=== PATIENT | female | born 1940 | race Caucasian/White ===

== ENCOUNTER 2016-09-11 15:21 | Inpatient (IN) | payer MEDICARE, MEDICAID ==
[~2016-09-11] VITALS: Ht 167.6 cm; Wt 60.8 kg
[2016-09-11] MEDS ORDERED: AMIODARONE HCL200 MG ORAL (15:30)
[2016-09-11] MEDS ORDERED: CREON DR 24,001 EACH PO (15:30)
[2016-09-11] MEDS ORDERED: LYRICA25 MG ORAL (15:30)
[2016-09-11] MEDS ORDERED: ASPIR 8181 MG ORAL (15:30)
[2016-09-11] MEDS ORDERED: HYDRALAZINE HCL50 MG ORAL (15:30)
[2016-09-11] MEDS ORDERED: KLONOPIN1 MG ORAL (15:30)
[2016-09-11] MEDS ORDERED: NEXIUM40 MG ORAL (15:30)
[2016-09-11] MEDS ORDERED: CRESTOR10 M2 ORAL (15:30)
[2016-09-11] MEDS ORDERED: SENSIPAR30 MG ORAL (15:30)
[2016-09-11] MEDS ORDERED: STARLIX60 MG ORAL (15:30)
[2016-09-11] MEDS ORDERED: VITAMIN D1000 UNI1 ORAL (15:30)
[2016-09-11] MEDS ORDERED: FERROUS SULFAT325 MG ORAL (15:30)
[2016-09-11 16:33] VITALS: BP 112/67
[2016-09-11 16:45] LABS: MEAN CORPUSCULAR HEMOGLOBIN 31.7 PG (27.0-31.0); MEAN CORPUSCULAR HGB CONC 30.6 G/DL (32.0-36.0); MEAN CORPUSCULAR VOLUME 104 FL (80-99); MEAN PLATELET VOLUME 8.4 FL (6.5-10.1); PLATELET COUNT 162 K/UL (150-450); RED BLOOD COUNT 4.27 M/UL (4.20-5.40); RED CELL DISTRIBUTION WIDTH 15.2 % (11.6-14.8); WHITE BLOOD COUNT 12.4 K/UL (4.8-10.8)
--- NOTE | 2016-09-11 16:49 | Diagnostic Imaging Report ---
Indication: Altered mental status Technique: Contiguous 5 mm thick transaxial imaging of the head obtained in a Siemens Sensation [address] scanner. Soft tissue and bone windows generated. Total Dose length Product (DLP): [address] Dose Index Volume (CTDIvol): 70.38 mGy Comparison: none Findings: There is mild prominence of the ventricles, basal cisterns, and cerebral sulci consistent with atrophy. Mild, nonspecific, white matter hypoattenuation is noted throughout the brain consistent with chronic small vessel disease. There is no midline shift, edema, acute hemorrhage, mass effect, or abnormal extra-axial fluid collections. Bones and extra osseous soft tissues are unremarkable. Old right medial orbital wall fracture. Impression: No acute intracranial bleed, mass effect or edema. Mild atrophy of the brain. Nonspecific white matter hypoattenuation probably due to chronic small vessel disease. The CT scanner at [facility] is accredited by the [employer] and the scans are performed using protocols designed to limit radiation exposure to as low as reasonably achievable to attain images of sufficient resolution adequate for diagnostic evaluation.
--- NOTE | 2016-09-11 16:51 | Emergency Room Report ---
History of Present Illness General Chief Complaint: Altered Level of Consciousness Source: Patient, EMS Present Illness HPI 76 YO F LONG from home for AMS. Neighbors hadnt seen patient in 2 days, called 911. Patient found on floor covered in her own feces. [place] speaking , not providing additional HPI right now. Patient calm, collected. Allergies: Coded Allergies: UNABLE TO ASSESS (Unverified , 09/11/16) Patient History Past Medical History: unable to obtain Past Surgical History: unable to obtain Pertinent Family History: unable to obtain Social History: Denies: alcohol use, drug use, smoking Now: No Immunizations: UTD Reviewed Nursing Documentation: PMH: Agreed, PSxH: Agreed Nursing Documentation-PMH Hx Cardiac Problems: Yes Hx Hypertension: Yes Hx Pacemaker: Yes Hx Diabetes: Yes Review of Systems All Other Systems: limited - AMS Physical Exam Vital Signs Date Time Temp Pulse Resp B/P Pulse Ox O2 Delivery O2 Flow Rate FiO2 09/11/16 15:19 62 12 123/62 99 Room Air Sp02 EP Interpretation: reviewed, normal General Appearance: normal inspection, well appearing, no apparent distress, alert, GCS 15, non-toxic Head: normocephalic, atraumatic Eyes: bilateral eye EOMI, bilateral eye PERRL ENT: normal ENT inspection, hearing 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, normal voice Neck: normal inspection, full range of motion, supple, no bony tend Respiratory: normal inspection, chest non-tender, lungs clear, normal breath sounds, no rhonchi, no respiratory distress, no retraction, no accessory muscle use, no wheezing Cardiovascular #1: regular rate, rhythm, no edema Gastrointestinal: normal inspection, normal bowel sounds, non tender, soft, no guarding, no hernia Genitourinary: no CVA tenderness Musculoskeletal: normal inspection, back normal, normal range of motion, Lesley' s Sign negative Neurologic: normal inspection, alert, oriented x3, responsive, service tester III-XII nml as tested, motor strength/tone normal, speech normal Psychiatric: normal inspection, judgement/insight normal, mood/affect normal Skin: normal inspection, normal color, no rash Medical Decision Making Medicare Attestation I Francois Warren MD hereby attest that the medical record entry for date of service, 06/17/16 accurately reflects signatures/notations that I made in my capacity as MD when I treated/diagnosed the above listed Medicare beneficiary. I attest that this information is true, accurate and complete to the best of my knowledge. I understand that any falsification, omission, or concealment of material fact may subject me to administrative, civil, or criminal liability. This patient warrants hospital admission for extreme of age and has a condition that cannot be treated as outpatient. Diagnostic Impression: Primary Impression: Altered level of consciousness Additional Impressions: Dehydration JENNIFER (acute kidney injury) Hyperkalemia Rhabdomyolysis Qualified Codes: T79.6XXA - Traumatic ischemia of muscle, initial encounter ER Course Labs: HyperK. Elevated serumCr. Elevated CK. Low bicarb. UA negative for UTI. CXR No PNA CT head negative for acute trauma A: Altered mental status - ?hemolyzed CMP. Redraw in progress. HyperK with ECG showing AV-dual paced with PCVs. Will tx as real with IV Caclium albuterol, kayexelate - Rhabdo with JENNIFER - Very elevated serumCr - ?history of CKD. Possible related to down time for 2 days, dehydration. 2L NS given - Low bicarb but vitals stable. Patient awake and oriented. - Endorsed to Dr Ervin for tele admission at 636pm EKG Diagnostic Results Rate: other - AV paced with ventricular paced complexes Rhythm Strip Diag. Results EP Interpretation: yes Rate: 62 Rhythm: NSR, no ectopy, other Chest X-Ray Diagnostic Results EP Interpretation: Yes Findings: no consolidation, no effusion, no pneumothorax, no acute cardiopulmonary disease, other - pacemaker on left side Number of Views: 1 Last Vital Signs Date Time Temp Pulse Resp B/P Pulse Ox O2 Delivery O2 Flow Rate FiO2 09/11/16 16:33 62 13 112/67 98 Room Air Disposition: ADMITTED INPATIENT Condition: Serious Referrals: NOT CHOSEN ZOHAIB/,REFERRING (PCP) FRANCOIS WARREN M.D. Sep 11, 2016 16:51
[2016-09-11 16:53] LABS: LYMPHOCYTES % (AUTO) 4.2 % (20.0-45.0); MONOCYTES % (AUTO) 2.8 % (1.0-10.0); NEUTROPHILS % (AUTO) 92.6 % (45.0-75.0)
[2016-09-11 16:54] LABS: BASOPHILS % (AUTO) 0.3 % (0.0-2.0)
[2016-09-11 17:04] LABS: ALANINE AMINOTRANSFERASE 17 U/L (3-33); ALBUMIN/GLOBULIN RATIO 1.3 (1.0-2.7); ANION GAP 33 (5-15); ASPARTATE AMINO TRANSFERASE 21 U/L (5-40); CALCIUM 7.9 mg/dL (8.6-10.2); CHLORIDE 107 mEQ/L (98-107); CREATININE 9.7 mg/dL (0.5-0.9); HEMOLYSIS 7; SODIUM 146 mEQ/L (135-145); TOTAL PROTEIN 6.5 g/dL (6.6-8.7); TROPONIN I < 0.30 ng/mL (<=0.30)
[2016-09-11 17:12] LABS: POTASSIUM 7.6 mEQ/L (3.4-4.9)
[2016-09-11 17:42] LABS: CARBON DIOXIDE < 6 mEQ/L (20-30)
[2016-09-11] MEDS ORDERED: Sodium Polystyrene Sulfonate 15gm Powder ORAL ONE ×3 (17:45→23:00)
[2016-09-11] MEDS ORDERED: Calcium Gluconate 1gm/10ml vial IVP ONE ×2 (17:45→22:15)
[2016-09-11] MEDS ORDERED: Albuterol ud Inhalation HHN ONE (17:45)
[2016-09-11 18:23] LABS: APPEARANCE,URINE CLEAR; KETONES,URINE 1+ (NEGATIVE); LEUKOCYTE ESTERASE ,URINE 1+ (NEGATIVE); NITRITE,URINE NEGATIVE (NEGATIVE); PH,URINE 5 (4.5-8.0); PROTEIN,URINE 4+ (NEGATIVE); UROBILINOGEN,URINE NORMAL MG/DL (0.0-1.0)
[2016-09-11 18:29] LABS: RBC,URINE 0-2 /HPF (0 - 2)
[2016-09-11 18:30] LABS: BACTERIA,URINE MODERATE /HPF; SQUAMOUS EPITHELIAL CELL,UR OCCASIONAL /LPF (NONE/OCC); WBC,URINE 0-2 /HPF (0 - 2)
[2016-09-11 18:31] LABS: AMORPHOUS SEDIMENT,UR MODERATE /LPF
[2016-09-11 19:12] LABS: ALANINE AMINOTRANSFERASE 16 U/L (3-33); ALBUMIN/GLOBULIN RATIO 1.5 (1.0-2.7); ASPARTATE AMINO TRANSFERASE 19 U/L (5-40); CALCIUM 7.6 mg/dL (8.6-10.2); CHLORIDE 107 mEQ/L (98-107); CREATININE 9.3 mg/dL (0.5-0.9); HEMOLYSIS 6; SODIUM 145 mEQ/L (135-145); TOTAL PROTEIN 5.9 g/dL (6.6-8.7)
[2016-09-11 19:13] VITALS: BP 121/73
[2016-09-11 19:18] LABS: ANION GAP 32 (5-15)
[2016-09-11 19:55] LABS: POTASSIUM 7.9 mEQ/L (3.4-4.9)
[2016-09-11 19:56] LABS: CARBON DIOXIDE < 6 mEQ/L (20-30)
--- NOTE | 2016-09-11 19:57 | Consultation ---
Consult Note Consult Note HPI 76 YO F BIBEMS from home for AMS. Neighbors hadnt seen patient in 2 days, called 911. Patient found on floor covered in her own feces. Citizen Of [place] speaking , not providing additional HPI right now. Patient calm, collected. Hx Cardiac Problems: Yes Hx Hypertension: Yes Hx Pacemaker: Yes Hx Diabetes: Yes Assessment/Plan status: Altered level of consciousness Dehydration JENNIFER (acute kidney injury) Hyperkalemia Rhabdomyolysis Plan: Kayexelate- ABG IV with bicard IV protonix NPO except meds Monitor renal parameters RICKI SALGADO Sep 11, 2016 19:57
[2016-09-11 20:30] VITALS: BP 106/61
[2016-09-11] MEDS ORDERED: Acetaminophen 650 MG SUPP RECTAL PRN (20:30)
[2016-09-11] MEDS ORDERED: DuoNeb 0.5-3(2.5)mg/3ml neb HHN PRN (20:30)
[2016-09-11] MEDS ORDERED: Miralax 17gm pkt ORAL PRN (20:30)
--- NOTE | 2016-09-11 20:33 | History and Physical ---
History of Present Illness General Date patient seen: Sep 11, 2016 Time patient seen: 18:00 Reason for Hospitalization: Altered Level of Consciousness Present Illness HPI 76y/o female with unknown pmh who was brought from home with AMS. Neighbors had not seen patient in 2 days, so they called 911. Patient was found on floor covered in her own feces. Unable to obtain history at this time given AMS. Pt awakens to voice and pain, but does not answer questions or follow commands. In ED, VSS. Labs notable for JENNIFER with SCr 9, hyperkalemia to K, severe metabolic acidosis w/ bicarb<6. Pt was given 1L NS bolus x 2, calcium gluconate , kayexylate, albuterol neb. Discussed w/ nephrology who recommended urgent dialysis with placement of temporary dialysis line. D/w ER doctor who stated he was unable to place it. Pt admitted to ICU. Allergies: Coded Allergies: NO KNOWN ALLERGIES (Verified Allergy, Unknown, 09/12/16) Medication History Scheduled Amiodarone Hcl* (Cordarone*), 200 MG ORAL DAILY, (Reported) Aspirin* (Aspir 81*), 81 MG ORAL DAILY, (Reported) Cholecalciferol (Vitamin D3)* (Vitamin D*), 5,000 UNITS ORAL DAILY, (Reported) Cinacalcet* (Sensipar*), 30 MG ORAL DAILY, (Reported) Clonazepam* (Klonopin*), 1 MG ORAL BID, (Reported) Esomeprazole Magnesium (Nexium), 40 MG ORAL DAILY, (Reported) Ferrous Sulfate* (Ferrous Sulfate*), 325 MG ORAL DAILY, (Reported) Hydralazine Hcl* (Hydralazine Hcl*), 50 MG ORAL TID, (Reported) Lipase/Protease/Amylase (Creon Dr 24,000 Units Capsule), 1 EACH PO TID, ( Reported) Nateglinide* (Starlix*), 60 MG ORAL THREE TIMES A DAY, (Reported) Pregabalin (Lyrica), 25 MG ORAL THREE TIMES A DAY, (Reported) Rosuvastatin Calcium* (Crestor*), 10 MG ORAL HS, (Reported) Medications Narrative Unknown Patient History History Provided By: Medical Record Healthcare decision maker Resuscitation status Advanced Directive on File Family History Family History: Unknown family medical history Review of Systems ROS Narrative Unable to assess at this time Physical Exam Physical Exam Narrative General: somnolent, arouses to voice and pain Head: normocephalic, without obvious abnormality, atraumatic Eyes: conjunctivae/corneas clear. PERRL, EOM's intact Throat: lips, mucosa, and tongue normal. MMM Neck: supple, symmetrical, trachea midline, and no JVD Lungs: clear to auscultation bilaterally Heart: regular rate and rhythm, S1, S2 normal, no murmur, click, rub or gallop Abdomen: soft, non-tender, non-distended, bowel sounds normal; no masses or organomegaly Extremities: extremities normal, atraumatic, no cyanosis or edema Pulses: 2+ and symmetric Skin: skin color, texture, turgor normal; no rashes or lesions Neurologic: unable to assess--does not follow commands or respond appropriately Last 24 Hour Vital Signs Date Time Temp Pulse Resp B/P Pulse Ox O2 Delivery O2 Flow Rate FiO2 09/11/16 20:09 98.9 60 13 121/73 99 Room Air 09/11/16 19:13 98.9 60 13 121/73 99 Room Air 09/11/16 18:57 61 15 99 Room Air 09/11/16 18:41 62 16 Room Air 09/11/16 18:41 62 16 98 Room Air 09/11/16 16:33 62 13 112/67 98 Room Air 09/11/16 15:19 62 12 123/62 99 Room Air Laboratory Tests Test 09/11/16 16:25 09/11/16 18:00 09/11/16 18:30 White Blood Count 12.4 K/UL (4.8-10.8) H Red Blood Count 4.27 M/UL (4.20-5.40) Hemoglobin 13.6 G/DL (12.0-16.0) Hematocrit 44.4 % (37.0-47.0) Mean Corpuscular Volume 104 FL (80-99) H Mean Corpuscular Hemoglobin 31.7 PG (27.0-31.0) H Mean Corpuscular Hemoglobin Concent 30.6 G/DL (32.0-36.0) L Red Cell Distribution Width 15.2 % (11.6-14.8) H Platelet Count 162 K/UL (150-450) Mean Platelet Volume 8.4 FL (6.5-10.1) Neutrophils (%) (Auto) 92.6 % (45.0-75.0) H Lymphocytes (%) (Auto) 4.2 % (20.0-45.0) L Monocytes (%) (Auto) 2.8 % (1.0-10.0) Eosinophils (%) (Auto) 0.0 % (0.0-3.0) Basophils (%) (Auto) 0.3 % (0.0-2.0) Sodium Level 146 mEQ/L (135-145) H 145 mEQ/L (135-145) Potassium Level 7.6 mEQ/L (3.4-4.9) *H 7.9 mEQ/L (3.4-4.9) *H Chloride Level 107 mEQ/L (98-107) 107 mEQ/L (98-107) Carbon Dioxide Level < 6 mEQ/L (20-30) *L < 6 mEQ/L (20-30) *L Anion Gap 33 (5-15) H 32 (5-15) H Blood Urea Nitrogen 141 mg/dL (7-23) H 142 mg/dL (7-23) H Creatinine 9.7 mg/dL (0.5-0.9) H 9.3 mg/dL (0.5-0.9) H Estimat Glomerular Filtration Rate mL/min (>60) mL/min (>60) Glucose Level 188 mg/dL (74-106) H 199 mg/dL (74-106) H Calcium Level 7.9 mg/dL (8.6-10.2) L 7.6 mg/dL (8.6-10.2) L Total Bilirubin 0.4 mg/dL (0.0-1.2) 0.4 mg/dL (0.0-1.2) Aspartate Amino Transf (AST/SGOT) 21 U/L (5-40) 19 U/L (5-40) Alanine Aminotransferase (ALT/SGPT) 17 U/L (3-33) 16 U/L (3-33) Alkaline Phosphatase 130 U/L (35-104) H 119 U/L (35-104) H Total Creatine Kinase 281 U/L (26-140) H Creatine Kinase MB 21.0 ng/mL (< 3.8) H Creatine Kinase MB Relative Index 7.4 Troponin I < 0.30 ng/mL (<=0.30) Total Protein 6.5 g/dL (6.6-8.7) L 5.9 g/dL (6.6-8.7) L Albumin 3.7 g/dL (3.5-5.2) 3.6 g/dL (3.5-5.2) Globulin 2.8 g/dL 2.3 g/dL Albumin/Globulin Ratio 1.3 (1.0-2.7) 1.5 (1.0-2.7) Urine Color Pale yellow Urine Appearance Clear Urine pH 5 (4.5-8.0) Urine Specific [place] 1.020 (1.005-1.035) Urine Protein 4+ (NEGATIVE) H Urine Glucose (UA) Negative (NEGATIVE) Urine Ketones 1+ (NEGATIVE) H Urine Occult Blood 2+ (NEGATIVE) H Urine Nitrite Negative (NEGATIVE) Urine Bilirubin Negative (NEGATIVE) Urine Urobilinogen Normal MG/DL (0.0-1.0) Urine Leukocyte Esterase 1+ (NEGATIVE) H Urine RBC 0-2 /HPF (0 - 2) Urine WBC 0-2 /HPF (0 - 2) Urine Squamous Epithelial Cells Occasional /LPF Urine Amorphous Sediment Moderate /LPF (NONE) H Urine Bacteria Moderate /HPF (NONE) H Urine Opiates Screen Positive (NEGATIVE) H Urine Barbiturates Screen Positive (NEGATIVE) H Phencyclidine (PCP) Screen Negative (NEGATIVE) Urine Amphetamines Screen Negative (NEGATIVE) Urine Benzodiazepines Screen Negative (NEGATIVE) Urine Cocaine Screen Negative (NEGATIVE) Urine Marijuana (THC) Screen Negative (NEGATIVE) Height (Feet): 5 Height (Inches): 6.00 Weight (Pounds): 140 Medications Current Medications Medications (Trade) Dose Ordered Sig/Serafin Route PRN Reason Start Time Stop Time Status Last Admin Dose Admin Acetaminophen (Tylenol) 650 mg Q4H PRN ORAL Fever 09/11/16 20:30 10/11/16 20:29 UNV Acetaminophen (Tylenol) 650 mg Q4H PRN ORAL Mild Pain (Pain Scale 1-3) 09/11/16 20:30 10/11/16 20:29 UNV Acetaminophen (Tylenol) 650 mg Q4H PRN RECTAL Mild Pain (Pain Scale 1-3) 09/11/16 20:30 10/11/16 20:29 UNV Albuterol/ Ipratropium (DuoNeb 0.5-3(2.5)mg/3ml) 3 ml Q4H PRN HHN Shortness of Breath 09/11/16 20:30 09/16/16 20:29 UNV Bisacodyl (Dulcolax) 10 mg DAILYPRN PRN RECTAL Constipation 09/11/16 20:30 10/11/16 20:29 UNV Dextrose (Dextrose 50%) STAT PRN IV Hypoglycemia 09/11/16 20:30 10/11/16 20:29 UNV Heparin Sodium (Porcine) (Heparin 5000 units/ml) 5,000 units EVERY 12 HOURS SUBQ 09/11/16 21:00 10/11/16 20:59 UNV Levofloxacin (Levaquin 750mg/ D5W) 150 ml @ 100 mls/hr NOW ONCE IVPB 09/11/16 21:00 09/11/16 22:29 Ondansetron HCl (Zofran) 4 mg Q6H PRN IVP Nausea & Vomiting 09/11/16 20:15 10/11/16 20:14 Ondansetron HCl (Zofran) 4 mg Q6H PRN IVP Nausea & Vomiting 09/11/16 20:30 10/11/16 20:29 UNV Pantoprazole 40 mg 40 mg EVERY 12 HOURS IVP 09/11/16 21:00 10/11/16 20:59 Polyethylene Glycol (Miralax) 17 gm DAILYPRN PRN ORAL Constipation 09/11/16 20:30 10/11/16 20:29 UNV Sodium Bicarbonate/ Dextrose/Sodium Chloride (Sodium Bicarbonate/D5 0.45% NS) 1,050 ml @ 100 mls/hr [id number] IV 09/11/16 21:00 10/11/16 20:59 Sodium Polystyrene Sulfonate (Kayexalate) 30 gm Q6HR ORAL 09/12/16 00:00 10/12/16 00:00 Assessment/Plan Problem List: (1) Toxic metabolic encephalopathy ICD Codes: G92 - Toxic encephalopathy SNOMED: 199198879 (2) JENNIFER (acute kidney injury) ICD Codes: N17.9 - Acute kidney failure, unspecified SNOMED: 00239958 (3) Hyperkalemia ICD Codes: E87.5 - Hyperkalemia SNOMED: 74160122 (4) High anion gap metabolic acidosis ICD Codes: E87.2 - Acidosis SNOMED: 01129966 (5) Pacemaker ICD Codes: Z95.0 - Presence of cardiac pacemaker SNOMED: 600185553, 484948549 Status: not improved Assessment/Plan Utox positive for opioids and barbiturates which may be likely culprits of encephalopathy. Unclear if pt had overdosed and if it was intentional or note. JENNIFER likely 2/2 severe dehydration (given pt found down) vs 2/2 drug overdose vs rhabdomyolysis (though CK not that elevated) Admit to ICU Nephrology consulted--plan for HD urgently once dialysis line placed D/w Dr. Marques--general surgeon to place HD in AM Cont IVFs w/ biarb Trend BMP, VBG Bicarb IVP PRN kayexylate q6h for now until dialysis initiated SW consult to locate family and gather more history Give high anion gap metabolic acidosis, check salicylate level Check osmolal gap DVT Prophylaxis: SCD, HSQ Code Status: Full Hospital Classification Declaration: Based on this initial evaluation, and depending on the patient's clinical course, I anticipate that this patient will require hospitalization for 3-4 days for JENNIFER, severe metabolic acidosis, and close respiratory/hemodynamic monitoring. Disposition: Once the patient is stable to leave the hospital, I anticipate the patient will likely be discharged to the following environment: home with HH vs SNF I spent 75 minutes on this patient's case, and 40 minutes were dedicated to counseling and/or care coordination. Discussed with patient/family, nursing staff, SW/CM, ER physician, nephrology regarding clinical status, treatment course, and disposition planning. Time of note may not reflect time of encounter. Rubia Ma M.D. Sep 11, 2016 20:33
[2016-09-11 21:00] VITALS: BP 118/42
[2016-09-11] MEDS: Heparin 5000 units/ml inj SUBQ SCH (21:00)
[2016-09-11] MEDS: Sodium Bicarbonate 50 ML in D5 1/2NS 1,000 ML IV SCH (21:54)
[2016-09-11 22:00] VITALS: BP 114/36
[2016-09-11] MEDS: Pantoprazole Inj IVP SCH (22:46)
[2016-09-11 23:00] VITALS: BP 106/46
[2016-09-11 23:15] LABS: CALCIUM 7.6 mg/dL (8.6-10.2); CHLORIDE 108 mEQ/L (98-107); CREATININE 9.3 mg/dL (0.5-0.9); HEMOLYSIS 6; SODIUM 146 mEQ/L (135-145)
[2016-09-11 23:21] LABS: ANION GAP 32 (5-15)
[2016-09-11 23:33] LABS: CARBON DIOXIDE < 6 mEQ/L (20-30); POTASSIUM 8.1 mEQ/L (3.4-4.9)
[2016-09-12] VITALS (23 sets, daily range): BP systolic 98–138; BP diastolic 34–90
[2016-09-12] MEDS: Sodium Polystyrene Sulfonate 15gm Powder ORAL SCH ×2 (00:23→06:36)
[2016-09-12 00:41] LABS: ANION GAP 31 (5-15); CALCIUM 7.2 mg/dL (8.6-10.2); CHLORIDE 106 mEQ/L (98-107); CREATININE 8.8 mg/dL (0.5-0.9); HEMOLYSIS 24; SODIUM 143 mEQ/L (135-145)
[2016-09-12 00:44] LABS: CARBON DIOXIDE < 6 mEQ/L (20-30); POTASSIUM 7.1 mEQ/L (3.4-4.9)
[2016-09-12 05:45] LABS: ABG ALLEN TEST POSITIVE; ABG BASE EXCESS -26.6; ABG PCO2 16.9 mmHg (35.0-45.0)
[2016-09-12] MEDS ORDERED: Lidocaine 1% MPF 10mg/ml 5ml ONE (05:52)
[2016-09-12] MEDS ORDERED: LORazepam Inj 2mg/ml 1ml ONE (06:00)
[2016-09-12 06:18] LABS: MEAN CORPUSCULAR HEMOGLOBIN 30.9 PG (27.0-31.0); MEAN CORPUSCULAR HGB CONC 29.9 G/DL (32.0-36.0); MEAN CORPUSCULAR VOLUME 103 FL (80-99); MEAN PLATELET VOLUME 9.1 FL (6.5-10.1); PLATELET COUNT 159 K/UL (150-450); RED BLOOD COUNT 3.59 M/UL (4.20-5.40); RED CELL DISTRIBUTION WIDTH 15.6 % (11.6-14.8); WHITE BLOOD COUNT 9.3 K/UL (4.8-10.8)
[2016-09-12 06:20] LABS: HEMOGLOBIN A1C 4.8 % (< 6.0)
[2016-09-12 06:57] LABS: TROPONIN I 1.87 ng/mL (<=0.30)
[2016-09-12] MEDS ORDERED: Sodium Bicarbonate 8.4% 50ml Carp ONE (07:04)
[2016-09-12] MEDS ORDERED: Sodium Bicarbonate 8.4% 50ml Carp IV ONE (07:15)
[2016-09-12] MEDS: Sodium Bicarbonate 50 ML in D5 1/2NS 1,000 ML IV SCH (07:30)
[2016-09-12 07:41] LABS: ALANINE AMINOTRANSFERASE 17 U/L (3-33); ALBUMIN/GLOBULIN RATIO 1.4 (1.0-2.7); ANION GAP 32 (5-15); ASPARTATE AMINO TRANSFERASE 37 U/L (5-40); CHLORIDE 106 mEQ/L (98-107); CHOLESTEROL 99 mg/dL (< 200); CHOLESTEROL/HDL RATIO 3.8 (3.3-4.4); CREATININE 9.2 mg/dL (0.5-0.9); HEMOLYSIS 18; LDL CHOLESTEROL (CALC.) 44 mg/dL (60-99); MAGNESIUM 1.9 mg/dL (1.7-2.5); PHOSPHORUS 14.2 mg/dL (2.5-4.8); SODIUM 144 mEQ/L (135-145); TOTAL PROTEIN 4.9 g/dL (6.6-8.7); URIC ACID 8.1 mg/dL (3.0-7.5)
[2016-09-12 07:45] LABS: POTASSIUM 7.5 mEQ/L (3.4-4.9)
[2016-09-12 07:46] LABS: CARBON DIOXIDE < 6 mEQ/L (20-30)
--- NOTE | 2016-09-12 07:48 | Operative Note - Dictated ---
DATE OF OPERATION: 09/12/2016 PREOPERATIVE DIAGNOSES: 1. End-stage renal disease. 2. Need for hemodialysis. 3. History of diabetes mellitus. 4. Dehydration. 5. Obtundation, most likely secondary to the end-stage renal disease. 6. Hypercalcemia. POSTOPERATIVE DIAGNOSES: 1. End-stage renal disease. 2. Need for hemodialysis. 3. History of diabetes mellitus. 4. Dehydration. 5. Obtundation, most likely secondary to the end-stage renal disease. 6. Hypercalcemia. SURGEON: Elie Tran M.D. HOME COORDINATOR: None. ANESTHESIA: A 1% local Xylocaine by surgeon 5 mL. NAME OF OPERATION: Placement of right subclavian 12-Ugandan Mahurkar dialysis catheter. FINDINGS AND INDICATIONS: The patient is a 76-year-old, female, brought in by paramedics, had not seen the patient for the last two days and they called 911. The patient was lying on the floor covered in her own feces. She is [place]-speaking, obtunded and unable to give any history. On admission, it was noted that her laboratories revealed sodium of 146, potassium of 8.1, initially which came down to 7.1, after some Kayexalate, a BUN of 147, creatinine 9.3, which came down to 141 and 8.8 on the second blood draw after Kayexalate. I was asked to see her for placement of a dialysis catheter, which was done in the intensive care unit under local anesthesia with sterile technique. DESCRIPTION OF PROCEDURE: With the patient lying in a Trendelenburg position on the ICU bed, under 1% local Xylocaine anesthesia, with IV sedation ready if needed, with the patient restrained on the arms, and after complete time-out the right subclavian vein was cannulated, Seldinger technique was then used to dilate it and a 12.5-Ugandan double-lumen dialysis catheter with an access port for IV was inserted and she has poor venous access. It was placed to 18 cm and secured to the skin with 2-0 silk material x3 with. Good bidirectional flow was obtained without problem and the catheter was then covered with a sterile dressing. A chest x-ray was ordered, which will be gotten . The patient tolerated the procedure well. ESTIMATED BLOOD LOSS: Less than 10 mL. COUNTS: Sponge and needle counts were correct. She remained in critical condition in the intensive care unit. Elie Tran M.D. DR: Mirella JOB#: [id number] CC:
[2016-09-12 08:51] LABS: ANISOCYTOSIS 1+; BAND NEUTROPHILS % (MANUAL) 1 % (0-8); BASOPHILS % (MANUAL) 0 % (0-2); EOSINOPHILS % (MANUAL) 0 % (0-3); HYPOCHROMASIA 1+; LYMPHOCYTES % (MANUAL) 9 % (20-45); NEUTROPHILS % (MANUAL) 85 % (45-75); PLATELET ESTIMATE ADEQUATE; PLATELET MORPHOLOGY NORMAL; TOTAL CELLS COUNTED 100
[2016-09-12] MEDS: Heparin 5000 units/ml inj SUBQ SCH ×2 (08:51→21:00)
[2016-09-12] MEDS: Pantoprazole Inj IVP SCH ×2 (09:01→21:04)
--- NOTE | 2016-09-12 09:29 | Consultation ---
DATE OF CONSULTATION: 09/12/2016 SURGICAL CONSULTATION: CONSULTING PHYSICIAN: Elie Tran M.D. REFERRING PHYSICIANS: 1. Joe Peres M.D. 2. Jacquelin Marques M.D. PERTINENT HISTORY: The patient is a 76-year-old, female, originally from [place], who came into the emergency room, an extremis, obtunded, after neighbors had not seen her for two days. They called 911. She was found on the floor and covered a . It was cleaned and brought to the emergency room at which point it was found that she was insignificant dehydration, acute renal failure, hyperkalemia up to a level of 52, calcium of 8.1, a BUN of 147, and creatinine 9.3. I have asked to see her for urgent placement of a dialysis catheter, which will be done in the intensive care unit immediately. PAST MEDICAL HISTORY: Unobtainable from the patient only from chart and . She may have a history of diabetes. She has altered level of consciousness, acute renal failure, and possible rhabdomyolysis. Past history not obtainable. PHYSICAL EXAMINATION: VITAL SIGNS: Blood pressure is now 103/86, temperature is 98.0 degrees, pulse 66, on pacemaker rhythm, and respirations are 20. GENERAL: The patient is a well developed, elderly female, obtunded in the intensive care unit does not respond to verbal stimulus, but some to pain stimulus. HEENT EXAM: Pupils are equal and reactive to light and accommodation. Mouth and throat are clear. NECK: Supple. LUNGS: Clear. BREASTS: Pendulous. No masses. HEART: Rhythmic and regular. Pacemaker in the left subclavian area. ABDOMEN: Soft, flat, and nontender. EXTREMITIES: Good range of motion. warm. No edema or cyanosis. LABORATORY VALUES: White blood count is 12.4, hemoglobin 13.6, hematocrit 44, 93 polys, and 4 lymphocytes. Sodium is 143, potassium is now 7.1, chloride 106, carbon dioxide 6, BUN 131, creatinine 8.8, and glucose 422. Calcium 7.2. IMPRESSION: 1. Acute renal failure. 2. Dehydration. 3. Obtundation. 4. Hyperkalemia. 5. Likely diabetes mellitus. PLAN: The patient will have a placement of the dialysis catheter in the intensive care unit. We will place three lumen to have intravenous access and she has access, because of the emergency room of the procedure, the right subclavian vein has been chosen given that she has some difficult anatomy and we need urgent dialysis. Elie Tran M.D. DR: ANGELLA JOB#: [id number] CC:
--- NOTE | 2016-09-12 09:36 | General Progress Note ---
Assessment/Plan Status: unchanged Status Narrative On HD now Assessment/Plan Altered level of consciousness Dehydration JENNIFER (acute kidney injury) Severe Hyperkalemia Possible Rhabdomyolysis Pace Maker Plan: Kayexelate- as needed Phos binders ABG monitor IV with bicarb ? re eval post HD IV protonix NPO except meds Monitor renal parameters Subjective ROS Limited/Unobtainable: No Constitutional: Reports: malaise, weakness Allergies: Coded Allergies: NO KNOWN ALLERGIES (Verified Allergy, Unknown, 09/12/16) Objective Last 24 Hour Vital Signs Date Time Temp Pulse Resp B/P Pulse Ox O2 Delivery O2 Flow Rate FiO2 09/12/16 09:00 61 8 99/54 100 Nasal Cannula 2.0 09/12/16 08:00 62 09/12/16 08:00 96.9 64 20 104/57 99 Nasal Cannula 2.0 09/12/16 07:00 63 20 102/56 99 Nasal Cannula 2.0 09/12/16 06:54 Nasal Cannula 2.0 28 09/12/16 06:54 98 Nasal Cannula 2.0 28 09/12/16 06:00 62 20 98/42 98 Nasal Cannula 2.0 09/12/16 05:00 66 20 103/86 99 Nasal Cannula 2.0 09/12/16 04:00 96.9 63 19 99/41 99 Nasal Cannula 2.0 09/12/16 04:00 63 09/12/16 03:00 62 21 99/60 98 Nasal Cannula 2.0 09/12/16 02:00 62 17 106/36 99 Nasal Cannula 2.0 09/12/16 01:00 63 18 100/44 98 Nasal Cannula 2.0 09/12/16 00:00 62 09/12/16 00:00 94.2 62 18 106/46 99 Nasal Cannula 2.0 09/11/16 23:27 99 Nasal Cannula 2.0 28 09/11/16 23:25 83 16 Nasal Cannula 2.0 28 09/11/16 23:24 Nasal Cannula 2.0 28 09/11/16 23:00 62 19 106/46 99 Nasal Cannula 2.0 09/11/16 22:00 62 19 114/36 98 Nasal Cannula 2.0 09/11/16 21:00 62 21 118/42 98 Nasal Cannula 2.0 09/11/16 20:30 62 09/11/16 20:30 94.1 62 13 106/61 98 Nasal Cannula 2.0 09/11/16 20:09 98.9 60 13 121/73 99 Room Air 09/11/16 19:13 98.9 60 13 121/73 99 Room Air 09/11/16 18:57 61 15 99 Room Air 09/11/16 18:41 62 16 Room Air 09/11/16 18:41 62 16 98 Room Air 09/11/16 16:33 62 13 112/67 98 Room Air 09/11/16 15:19 62 12 123/62 99 Room Air Intake and Output 09/11/16 09/12/16 19:00 07:00 Intake Total 2030 ml Output Total 465 ml Balance 1565 ml Intake Oral 180 ml IV Total 1850 ml Output Urine Total 465 ml # Voids 1 10 # Bowel Movements 5 Laboratory Tests 09/11/16 16:25: White Blood Count 12.4H, Red Blood Count 4.27, Hemoglobin 13.6, Hematocrit 44.4 , Mean Corpuscular Volume 104H, Mean Corpuscular Hemoglobin 31.7H, Mean Corpuscular Hemoglobin Concent 30.6L, Red Cell Distribution Width 15.2H, Platelet Count 162, Mean Platelet Volume 8.4, Neutrophils (%) (Auto) 92.6H, Lymphocytes (%) (Auto) 4.2L, Monocytes (%) (Auto) 2.8, Eosinophils (%) (Auto) 0.0, Basophils (%) (Auto) 0.3, Sodium Level 146H, Potassium Level 7.6*H, Chloride Level 107, Carbon Dioxide Level < 6*L, Anion Gap 33H, Blood Urea Nitrogen 141H, Creatinine 9.7H, Estimat Glomerular Filtration Rate , Glucose Level 188H, Calcium Level 7.9L, Total Bilirubin 0.4, Aspartate Amino Transf (AST /SGOT) 21, Alanine Aminotransferase (ALT/SGPT) 17, Alkaline Phosphatase 130H, Total Creatine Kinase 281H, Creatine Kinase MB 21.0H, Creatine Kinase MB Relative Index 7.4, Troponin I < 0.30, Total Protein 6.5L, Albumin 3.7, Globulin 2.8, Albumin/Globulin Ratio 1.3 09/11/16 18:00: Urine Color Pale yellow, Urine Appearance Clear, Urine pH 5, Urine Specific [place] 1.020, Urine Protein 4+H, Urine Glucose (UA) Negative, Urine Ketones 1+H , Urine Occult Blood 2+H, Urine Nitrite Negative, Urine Bilirubin Negative, Urine Urobilinogen Normal, Urine Leukocyte Esterase 1+H, Urine RBC 0-2, Urine WBC 0-2, Urine Squamous Epithelial Cells Occasional, Urine Amorphous Sediment ModerateH, Urine Bacteria ModerateH, Urine Opiates Screen PositiveH, Urine Barbiturates Screen PositiveH, Phencyclidine (PCP) Screen Negative, Urine Amphetamines Screen Negative, Urine Benzodiazepines Screen Negative, Urine Cocaine Screen Negative, Urine Marijuana (THC) Screen Negative 09/11/16 18:30: Sodium Level 145, Potassium Level 7.9*H, Chloride Level 107, Carbon Dioxide Level < 6*L, Anion Gap 32H, Blood Urea Nitrogen 142H, Creatinine 9.3H, Estimat Glomerular Filtration Rate , Glucose Level 199H, Calcium Level 7.6L, Total Bilirubin 0.4, Aspartate Amino Transf (AST/SGOT) 19, Alanine Aminotransferase ( ALT/SGPT) 16, Alkaline Phosphatase 119H, Total Protein 5.9L, Albumin 3.6, Globulin 2.3, Albumin/Globulin Ratio 1.5 09/11/16 22:45: Sodium Level 146H, Potassium Level 8.1*H, Chloride Level 108H, Carbon Dioxide Level < 6*L, Anion Gap 32H, Blood Urea Nitrogen 147H, Creatinine 9.3H, Estimat Glomerular Filtration Rate , Glucose Level 220H, Calcium Level 7.6L 09/11/16 23:55: Sodium Level 143, Potassium Level 7.1*H, Chloride Level 106, Carbon Dioxide Level < 6*L, Anion Gap 31H, Blood Urea Nitrogen 141H, Creatinine 8.8H, Estimat Glomerular Filtration Rate , Glucose Level 422#H, Calcium Level 7.2L 09/12/16 04:20: Sodium Level 144, Potassium Level 7.5*H, Chloride Level 106, Carbon Dioxide Level < 6*L, Anion Gap 32H, Blood Urea Nitrogen 143H, Creatinine 9.2H, Estimat Glomerular Filtration Rate , Glucose Level 421H, Calcium Level 7.0L, White Blood Count 9.3, Red Blood Count 3.59L, Hemoglobin 11.1L, Hematocrit 37.1, Mean Corpuscular Volume 103H, Mean Corpuscular Hemoglobin 30.9, Mean Corpuscular Hemoglobin Concent 29.9L, Red Cell Distribution Width 15.6H, Platelet Count 159 , Mean Platelet Volume 9.1, Neutrophils (%) (Auto) , Lymphocytes (%) (Auto) , Monocytes (%) (Auto) , Eosinophils (%) (Auto) , Basophils (%) (Auto) , Differential Total Cells Counted 100, Neutrophils % (Manual) 85H, Lymphocytes % (Manual) 9L, Monocytes % (Manual) 5, Eosinophils % (Manual) 0, Basophils % ( Manual) 0, Band Neutrophils 1, Platelet Estimate Adequate, Platelet Morphology Normal, Hypochromasia 1+, Anisocytosis 1+, Hemoglobin A1c 4.8, Lactic Acid Level 1.60, Uric Acid 8.1H, Phosphorus Level 14.2H, Magnesium Level 1.9, Total Bilirubin 0.5, Gamma Glutamyl Transpeptidase 21, Aspartate Amino Transf (AST/ SGOT) 37, Alanine Aminotransferase (ALT/SGPT) 17, Alkaline Phosphatase 107H, Total Creatine Kinase 331H, Troponin I 1.87*H, Pro-B-Type Natriuretic Peptide 09100G, Total Protein 4.9L, Albumin 2.9L, Globulin 2.0, Albumin/Globulin Ratio 1.4, Triglycerides Level 146, Cholesterol Level 99, LDL Cholesterol 44L, HDL Cholesterol 26, Cholesterol/HDL Ratio 3.8 09/12/16 05:35: Arterial Blood pH 6.960*L, Arterial Blood Partial Pressure CO2 16.9*L, Arterial Blood Partial Pressure O2 129.3H, Arterial Blood HCO3 3.7L, Arterial Blood Oxygen Saturation 95.7, Arterial Blood Base Excess -26.6, Huang Test Positive Height (Feet): 5 Height (Inches): 6.00 Weight (Pounds): 142 General Appearance: no apparent distress, lethargic, confused Cardiovascular: tachycardia, arrhythmia, pacemaker/AICD Respiratory/Chest: decreased breath sounds Abdomen: soft RICKI SALGADO Sep 12, 2016 09:36
--- NOTE | 2016-09-12 10:13 | Diagnostic Imaging Report ---
Indication: Line placement Comparison: 09/12/16 06:26 A single view chest radiograph was obtained. Findings: Current study performed 08:07 No change seen compared to the film from earlier at 06:26. Right subclavian dialysis catheter again noted. The tip is in the right jugular vein. Pulmonary vascular congestion appears improved since the previous exam. Hazy opacification involving the basilar aspects of both lungs persist. Pacemaker and generalized osteopenia are noted. Impression: Improved pulmonary edema. Right subclavian Wood catheter again noted with tip oriented cranially within the jugular vein. ICU nurse was notified of this via telephone at 10:06 AM.
[2016-09-12 11:20] LABS: ANION GAP 24 (5-15); CALCIUM 6.3 mg/dL (8.6-10.2); CARBON DIOXIDE 17 mEQ/L (20-30); CHLORIDE 111 mEQ/L (98-107); HEMOLYSIS 5; POTASSIUM 4.1 mEQ/L (3.4-4.9); SODIUM 152 mEQ/L (135-145)
--- NOTE | 2016-09-12 11:46 | Pulmonolgy Critical Care Note ---
Critical Care - Asmt/Plan Problems: (1) Altered level of consciousness (2) JENNIFER (acute kidney injury) (3) Hyperkalemia (4) Pacemaker (5) Diabetes mellitus Respiratory: monitor respiratory rate, adjust FIO2 Cardiac: continue to monitor HR/BP Renal: F/U I&O, keep IV fluid Infectious Disease: check cultures, continue antibiotics Gastrointestinal: start feedings Endocrine: monitor blood sugar, continue sliding scale insulin Hematologic: monitor H/H, transfuse if hgb<8.5 Neurologic: PRN Ativan, PRN Morphine, keep patient comfortable Affect: PRN ativan Prophylaxis: Protonix, Heparin Notes Reviewed: monument carver, cardio, renal Discussed with: nurses, consultants, bilingual patient support caseworkercall center manager - Objective Last 24 Hour Vital Signs Date Time Temp Pulse Resp B/P Pulse Ox O2 Delivery O2 Flow Rate FiO2 09/12/16 11:00 61 20 114/90 98 Nasal Cannula 2.0 09/12/16 10:00 61 20 109/57 99 Nasal Cannula 2.0 09/12/16 09:00 61 8 99/54 100 Nasal Cannula 2.0 09/12/16 08:00 62 09/12/16 08:00 96.9 64 20 104/57 99 Nasal Cannula 2.0 09/12/16 07:00 63 20 102/56 99 Nasal Cannula 2.0 09/12/16 06:54 Nasal Cannula 2.0 28 09/12/16 06:54 98 Nasal Cannula 2.0 28 09/12/16 06:00 62 20 98/42 98 Nasal Cannula 2.0 09/12/16 05:00 66 20 103/86 99 Nasal Cannula 2.0 09/12/16 04:00 96.9 63 19 99/41 99 Nasal Cannula 2.0 09/12/16 04:00 63 09/12/16 03:00 62 21 99/60 98 Nasal Cannula 2.0 09/12/16 02:00 62 17 106/36 99 Nasal Cannula 2.0 09/12/16 01:00 63 18 100/44 98 Nasal Cannula 2.0 09/12/16 00:00 62 09/12/16 00:00 94.2 62 18 106/46 99 Nasal Cannula 2.0 09/11/16 23:27 99 Nasal Cannula 2.0 28 09/11/16 23:25 83 16 Nasal Cannula 2.0 28 09/11/16 23:24 Nasal Cannula 2.0 28 09/11/16 23:00 62 19 106/46 99 Nasal Cannula 2.0 09/11/16 22:00 62 19 114/36 98 Nasal Cannula 2.0 09/11/16 21:00 62 21 118/42 98 Nasal Cannula 2.0 09/11/16 20:30 62 09/11/16 20:30 94.1 62 13 106/61 98 Nasal Cannula 2.0 09/11/16 20:09 98.9 60 13 121/73 99 Room Air 09/11/16 19:13 98.9 60 13 121/73 99 Room Air 09/11/16 18:57 61 15 99 Room Air 09/11/16 18:41 62 16 Room Air 09/11/16 18:41 62 16 98 Room Air 09/11/16 16:33 62 13 112/67 98 Room Air 09/11/16 15:19 62 12 123/62 99 Room Air Status: sedated Condition: critical HEENT: atraumatic Neck: full ROM Lungs: clear, chest wall tender Heart: HR/BP stable, HR/BP unstable, regular Abdomen: soft, non-tender Extremities: no C/C/E, edema Accucheck: 204 Critical Care - Subjective ROS Limited/Unobtainable: No ICU Day: 2 Intubation Day: 2 Interval Events: 76year old female brought in by paramedics from home for AMS. Neighbors hadn' t seen patient in 2 days, they called 911. Patient found on floor covered in her own feces. Pt was comatose and had renal failure and hyperkalemia. She received treatment for hyperkalemia and transferred to ICU. FI02: 28 Sputum Amount: None Fluids: 1/2 NS 75 cc.hour I&O: Intake and Output 09/11/16 09/12/16 19:00 07:00 Intake Total 2030 ml Output Total 465 ml Balance 1565 ml Intake Oral 180 ml IV Total 1850 ml Output Urine Total 465 ml # Voids 1 10 # Bowel Movements 5 CXR: pace maker in place Labs: Laboratory Tests Test 09/11/16 16:25 09/11/16 18:00 09/11/16 18:30 09/11/16 22:45 White Blood Count 12.4 K/UL (4.8-10.8) H Red Blood Count 4.27 M/UL (4.20-5.40) Hemoglobin 13.6 G/DL (12.0-16.0) Hematocrit 44.4 % (37.0-47.0) Mean Corpuscular Volume 104 FL (80-99) H Mean Corpuscular Hemoglobin 31.7 PG (27.0-31.0) H Mean Corpuscular Hemoglobin Concent 30.6 G/DL (32.0-36.0) L Red Cell Distribution Width 15.2 % (11.6-14.8) H Platelet Count 162 K/UL (150-450) Mean Platelet Volume 8.4 FL (6.5-10.1) Neutrophils (%) (Auto) 92.6 % (45.0-75.0) H Lymphocytes (%) (Auto) 4.2 % (20.0-45.0) L Monocytes (%) (Auto) 2.8 % (1.0-10.0) Eosinophils (%) (Auto) 0.0 % (0.0-3.0) Basophils (%) (Auto) 0.3 % (0.0-2.0) Sodium Level 146 mEQ/L (135-145) H 145 mEQ/L (135-145) 146 mEQ/L (135-145) H Potassium Level 7.6 mEQ/L (3.4-4.9) *H 7.9 mEQ/L (3.4-4.9) *H 8.1 mEQ/L (3.4-4.9) *H Chloride Level 107 mEQ/L (98-107) 107 mEQ/L (98-107) 108 mEQ/L (98-107) H Carbon Dioxide Level < 6 mEQ/L (20-30) *L < 6 mEQ/L (20-30) *L < 6 mEQ/L (20-30) *L Anion Gap 33 (5-15) H 32 (5-15) H 32 (5-15) H Blood Urea Nitrogen 141 mg/dL (7-23) H 142 mg/dL (7-23) H 147 mg/dL (7-23) H Creatinine 9.7 mg/dL (0.5-0.9) H 9.3 mg/dL (0.5-0.9) H 9.3 mg/dL (0.5-0.9) H Estimat Glomerular Filtration Rate mL/min (>60) mL/min (>60) mL/min (>60) Glucose Level 188 mg/dL (74-106) H 199 mg/dL (74-106) H 220 mg/dL (74-106) H Calcium Level 7.9 mg/dL (8.6-10.2) L 7.6 mg/dL (8.6-10.2) L 7.6 mg/dL (8.6-10.2) L Total Bilirubin 0.4 mg/dL (0.0-1.2) 0.4 mg/dL (0.0-1.2) Aspartate Amino Transf (AST/SGOT) 21 U/L (5-40) 19 U/L (5-40) Alanine Aminotransferase (ALT/SGPT) 17 U/L (3-33) 16 U/L (3-33) Alkaline Phosphatase 130 U/L (35-104) H 119 U/L (35-104) H Total Creatine Kinase 281 U/L (26-140) H Creatine Kinase MB 21.0 ng/mL (< 3.8) H Creatine Kinase MB Relative Index 7.4 Troponin I < 0.30 ng/mL (<=0.30) Total Protein 6.5 g/dL (6.6-8.7) L 5.9 g/dL (6.6-8.7) L Albumin 3.7 g/dL (3.5-5.2) 3.6 g/dL (3.5-5.2) Globulin 2.8 g/dL 2.3 g/dL Albumin/Globulin Ratio 1.3 (1.0-2.7) 1.5 (1.0-2.7) Urine Color Pale yellow Urine Appearance Clear Urine pH 5 (4.5-8.0) Urine Specific [place] 1.020 (1.005-1.035) Urine Protein 4+ (NEGATIVE) H Urine Glucose (UA) Negative (NEGATIVE) Urine Ketones 1+ (NEGATIVE) H Urine Occult Blood 2+ (NEGATIVE) H Urine Nitrite Negative (NEGATIVE) Urine Bilirubin Negative (NEGATIVE) Urine Urobilinogen Normal MG/DL (0.0-1.0) Urine Leukocyte Esterase 1+ (NEGATIVE) H Urine RBC 0-2 /HPF (0 - 2) Urine WBC 0-2 /HPF (0 - 2) Urine Squamous Epithelial Cells Occasional /LPF Urine Amorphous Sediment Moderate /LPF (NONE) H Urine Bacteria Moderate /HPF (NONE) H Urine Opiates Screen Positive (NEGATIVE) H Urine Barbiturates Screen Positive (NEGATIVE) H Phencyclidine (PCP) Screen Negative (NEGATIVE) Urine Amphetamines Screen Negative (NEGATIVE) Urine Benzodiazepines Screen Negative (NEGATIVE) Urine Cocaine Screen Negative (NEGATIVE) Urine Marijuana (THC) Screen Negative (NEGATIVE) Test 09/11/16 23:55 09/12/16 04:20 09/12/16 05:35 09/12/16 10:30 Sodium Level 143 mEQ/L (135-145) 144 mEQ/L (135-145) 152 mEQ/L (135-145) H Potassium Level 7.1 mEQ/L (3.4-4.9) *H 7.5 mEQ/L (3.4-4.9) *H 4.1 mEQ/L (3.4-4.9) Chloride Level 106 mEQ/L (98-107) 106 mEQ/L (98-107) 111 mEQ/L (98-107) H Carbon Dioxide Level < 6 mEQ/L (20-30) *L < 6 mEQ/L (20-30) *L 17 mEQ/L (20-30) L Anion Gap 31 (5-15) H 32 (5-15) H 24 (5-15) H Blood Urea Nitrogen 141 mg/dL (7-23) H 143 mg/dL (7-23) H 89 mg/dL (7-23) #H Creatinine 8.8 mg/dL (0.5-0.9) H 9.2 mg/dL (0.5-0.9) H 6.0 mg/dL (0.5-0.9) H Estimat Glomerular Filtration Rate mL/min (>60) mL/min (>60) mL/min (>60) Glucose Level 422 mg/dL (74-106) #H 421 mg/dL (74-106) H 283 mg/dL (74-106) #H Calcium Level 7.2 mg/dL (8.6-10.2) L 7.0 mg/dL (8.6-10.2) L 6.3 mg/dL (8.6-10.2) L White Blood Count 9.3 K/UL (4.8-10.8) Red Blood Count 3.59 M/UL (4.20-5.40) L Hemoglobin 11.1 G/DL (12.0-16.0) L Hematocrit 37.1 % (37.0-47.0) Mean Corpuscular Volume 103 FL (80-99) H Mean Corpuscular Hemoglobin 30.9 PG (27.0-31.0) Mean Corpuscular Hemoglobin Concent 29.9 G/DL (32.0-36.0) L Red Cell Distribution Width 15.6 % (11.6-14.8) H Platelet Count 159 K/UL (150-450) Mean Platelet Volume 9.1 FL (6.5-10.1) Neutrophils (%) (Auto) % (45.0-75.0) Lymphocytes (%) (Auto) % (20.0-45.0) Monocytes (%) (Auto) % (1.0-10.0) Eosinophils (%) (Auto) % (0.0-3.0) Basophils (%) (Auto) % (0.0-2.0) Differential Total Cells Counted 100 Neutrophils % (Manual) 85 % (45-75) H Lymphocytes % (Manual) 9 % (20-45) L Monocytes % (Manual) 5 % (1-10) Eosinophils % (Manual) 0 % (0-3) Basophils % (Manual) 0 % (0-2) Band Neutrophils 1 % (0-8) Platelet Estimate Adequate Platelet Morphology Normal Hypochromasia 1+ Anisocytosis 1+ Hemoglobin A1c 4.8 % (< 6.0) Lactic Acid Level 1.60 mmol/L (0.66-2.22) Uric Acid 8.1 mg/dL (3.0-7.5) H Phosphorus Level 14.2 mg/dL (2.5-4.8) H Magnesium Level 1.9 mg/dL (1.7-2.5) Total Bilirubin 0.5 mg/dL (0.0-1.2) Gamma Glutamyl Transpeptidase 21 U/L (5-36) Aspartate Amino Transf (AST/SGOT) 37 U/L (5-40) Alanine Aminotransferase (ALT/SGPT) 17 U/L (3-33) Alkaline Phosphatase 107 U/L (35-104) H Total Creatine Kinase 331 U/L (26-140) H Troponin I 1.87 ng/mL (<=0.30) *H Pro-B-Type Natriuretic Peptide 80429 pg/mL (0-450) H Total Protein 4.9 g/dL (6.6-8.7) L Albumin 2.9 g/dL (3.5-5.2) L Globulin 2.0 g/dL Albumin/Globulin Ratio 1.4 (1.0-2.7) Triglycerides Level 146 mg/dL (< 150) Cholesterol Level 99 mg/dL (< 200) LDL Cholesterol 44 mg/dL (60-99) L HDL Cholesterol 26 mg/dL (> 60) Cholesterol/HDL Ratio 3.8 (3.3-4.4) Arterial Blood pH 6.960 (7.350-7.450) Arterial Blood Partial Pressure CO2 16.9 mmHg (35.0-45.0) *L Arterial Blood Partial Pressure O2 129.3 mmHg (75.0-100.0) H Arterial Blood HCO3 3.7 mmol/L (22.0-26.0) L Arterial Blood Oxygen Saturation 95.7 % (92.0-98.0) Arterial Blood Base Excess -26.6 Huang Test Positive LORENE RAMÍREZ Sep 12, 2016 11:46
[2016-09-12] MEDS: Renvela 800mg Pkt ORAL SCH ×2 (12:00→16:30)
--- NOTE | 2016-09-12 12:25 | Neurology Progress Note ---
Interim History Interim History ROS Limited/Unobtainable: No Objective Physical Exam Last Vital Signs Date Time Temp Pulse Resp B/P Pulse Ox O2 Delivery O2 Flow Rate FiO2 09/12/16 12:00 62 09/12/16 12:00 97.1 18 120/75 99 Nasal Cannula 2.0 09/12/16 06:54 28 Laboratory Tests Test 09/11/16 16:25 09/11/16 18:00 09/11/16 18:30 09/11/16 22:45 White Blood Count 12.4 K/UL (4.8-10.8) H Red Blood Count 4.27 M/UL (4.20-5.40) Hemoglobin 13.6 G/DL (12.0-16.0) Hematocrit 44.4 % (37.0-47.0) Mean Corpuscular Volume 104 FL (80-99) H Mean Corpuscular Hemoglobin 31.7 PG (27.0-31.0) H Mean Corpuscular Hemoglobin Concent 30.6 G/DL (32.0-36.0) L Red Cell Distribution Width 15.2 % (11.6-14.8) H Platelet Count 162 K/UL (150-450) Mean Platelet Volume 8.4 FL (6.5-10.1) Neutrophils (%) (Auto) 92.6 % (45.0-75.0) H Lymphocytes (%) (Auto) 4.2 % (20.0-45.0) L Monocytes (%) (Auto) 2.8 % (1.0-10.0) Eosinophils (%) (Auto) 0.0 % (0.0-3.0) Basophils (%) (Auto) 0.3 % (0.0-2.0) Sodium Level 146 mEQ/L (135-145) H 145 mEQ/L (135-145) 146 mEQ/L (135-145) H Potassium Level 7.6 mEQ/L (3.4-4.9) *H 7.9 mEQ/L (3.4-4.9) *H 8.1 mEQ/L (3.4-4.9) *H Chloride Level 107 mEQ/L (98-107) 107 mEQ/L (98-107) 108 mEQ/L (98-107) H Carbon Dioxide Level < 6 mEQ/L (20-30) *L < 6 mEQ/L (20-30) *L < 6 mEQ/L (20-30) *L Anion Gap 33 (5-15) H 32 (5-15) H 32 (5-15) H Blood Urea Nitrogen 141 mg/dL (7-23) H 142 mg/dL (7-23) H 147 mg/dL (7-23) H Creatinine 9.7 mg/dL (0.5-0.9) H 9.3 mg/dL (0.5-0.9) H 9.3 mg/dL (0.5-0.9) H Estimat Glomerular Filtration Rate mL/min (>60) mL/min (>60) mL/min (>60) Glucose Level 188 mg/dL (74-106) H 199 mg/dL (74-106) H 220 mg/dL (74-106) H Calcium Level 7.9 mg/dL (8.6-10.2) L 7.6 mg/dL (8.6-10.2) L 7.6 mg/dL (8.6-10.2) L Total Bilirubin 0.4 mg/dL (0.0-1.2) 0.4 mg/dL (0.0-1.2) Aspartate Amino Transf (AST/SGOT) 21 U/L (5-40) 19 U/L (5-40) Alanine Aminotransferase (ALT/SGPT) 17 U/L (3-33) 16 U/L (3-33) Alkaline Phosphatase 130 U/L (35-104) H 119 U/L (35-104) H Total Creatine Kinase 281 U/L (26-140) H Creatine Kinase MB 21.0 ng/mL (< 3.8) H Creatine Kinase MB Relative Index 7.4 Troponin I < 0.30 ng/mL (<=0.30) Total Protein 6.5 g/dL (6.6-8.7) L 5.9 g/dL (6.6-8.7) L Albumin 3.7 g/dL (3.5-5.2) 3.6 g/dL (3.5-5.2) Globulin 2.8 g/dL 2.3 g/dL Albumin/Globulin Ratio 1.3 (1.0-2.7) 1.5 (1.0-2.7) Urine Color Pale yellow Urine Appearance Clear Urine pH 5 (4.5-8.0) Urine Specific [place] 1.020 (1.005-1.035) Urine Protein 4+ (NEGATIVE) H Urine Glucose (UA) Negative (NEGATIVE) Urine Ketones 1+ (NEGATIVE) H Urine Occult Blood 2+ (NEGATIVE) H Urine Nitrite Negative (NEGATIVE) Urine Bilirubin Negative (NEGATIVE) Urine Urobilinogen Normal MG/DL (0.0-1.0) Urine Leukocyte Esterase 1+ (NEGATIVE) H Urine RBC 0-2 /HPF (0 - 2) Urine WBC 0-2 /HPF (0 - 2) Urine Squamous Epithelial Cells Occasional /LPF Urine Amorphous Sediment Moderate /LPF (NONE) H Urine Bacteria Moderate /HPF (NONE) H Urine Opiates Screen Positive (NEGATIVE) H Urine Barbiturates Screen Positive (NEGATIVE) H Phencyclidine (PCP) Screen Negative (NEGATIVE) Urine Amphetamines Screen Negative (NEGATIVE) Urine Benzodiazepines Screen Negative (NEGATIVE) Urine Cocaine Screen Negative (NEGATIVE) Urine Marijuana (THC) Screen Negative (NEGATIVE) Test 09/11/16 23:55 09/12/16 04:20 09/12/16 05:35 09/12/16 10:30 Sodium Level 143 mEQ/L (135-145) 144 mEQ/L (135-145) 152 mEQ/L (135-145) H Potassium Level 7.1 mEQ/L (3.4-4.9) *H 7.5 mEQ/L (3.4-4.9) *H 4.1 mEQ/L (3.4-4.9) Chloride Level 106 mEQ/L (98-107) 106 mEQ/L (98-107) 111 mEQ/L (98-107) H Carbon Dioxide Level < 6 mEQ/L (20-30) *L < 6 mEQ/L (20-30) *L 17 mEQ/L (20-30) L Anion Gap 31 (5-15) H 32 (5-15) H 24 (5-15) H Blood Urea Nitrogen 141 mg/dL (7-23) H 143 mg/dL (7-23) H 89 mg/dL (7-23) #H Creatinine 8.8 mg/dL (0.5-0.9) H 9.2 mg/dL (0.5-0.9) H 6.0 mg/dL (0.5-0.9) H Estimat Glomerular Filtration Rate mL/min (>60) mL/min (>60) mL/min (>60) Glucose Level 422 mg/dL (74-106) #H 421 mg/dL (74-106) H 283 mg/dL (74-106) #H Calcium Level 7.2 mg/dL (8.6-10.2) L 7.0 mg/dL (8.6-10.2) L 6.3 mg/dL (8.6-10.2) L White Blood Count 9.3 K/UL (4.8-10.8) Red Blood Count 3.59 M/UL (4.20-5.40) L Hemoglobin 11.1 G/DL (12.0-16.0) L Hematocrit 37.1 % (37.0-47.0) Mean Corpuscular Volume 103 FL (80-99) H Mean Corpuscular Hemoglobin 30.9 PG (27.0-31.0) Mean Corpuscular Hemoglobin Concent 29.9 G/DL (32.0-36.0) L Red Cell Distribution Width 15.6 % (11.6-14.8) H Platelet Count 159 K/UL (150-450) Mean Platelet Volume 9.1 FL (6.5-10.1) Neutrophils (%) (Auto) % (45.0-75.0) Lymphocytes (%) (Auto) % (20.0-45.0) Monocytes (%) (Auto) % (1.0-10.0) Eosinophils (%) (Auto) % (0.0-3.0) Basophils (%) (Auto) % (0.0-2.0) Differential Total Cells Counted 100 Neutrophils % (Manual) 85 % (45-75) H Lymphocytes % (Manual) 9 % (20-45) L Monocytes % (Manual) 5 % (1-10) Eosinophils % (Manual) 0 % (0-3) Basophils % (Manual) 0 % (0-2) Band Neutrophils 1 % (0-8) Platelet Estimate Adequate Platelet Morphology Normal Hypochromasia 1+ Anisocytosis 1+ Hemoglobin A1c 4.8 % (< 6.0) Lactic Acid Level 1.60 mmol/L (0.66-2.22) Uric Acid 8.1 mg/dL (3.0-7.5) H Phosphorus Level 14.2 mg/dL (2.5-4.8) H Magnesium Level 1.9 mg/dL (1.7-2.5) Total Bilirubin 0.5 mg/dL (0.0-1.2) Gamma Glutamyl Transpeptidase 21 U/L (5-36) Aspartate Amino Transf (AST/SGOT) 37 U/L (5-40) Alanine Aminotransferase (ALT/SGPT) 17 U/L (3-33) Alkaline Phosphatase 107 U/L (35-104) H Total Creatine Kinase 331 U/L (26-140) H Troponin I 1.87 ng/mL (<=0.30) *H Pro-B-Type Natriuretic Peptide 02640 pg/mL (0-450) H Total Protein 4.9 g/dL (6.6-8.7) L Albumin 2.9 g/dL (3.5-5.2) L Globulin 2.0 g/dL Albumin/Globulin Ratio 1.4 (1.0-2.7) Triglycerides Level 146 mg/dL (< 150) Cholesterol Level 99 mg/dL (< 200) LDL Cholesterol 44 mg/dL (60-99) L HDL Cholesterol 26 mg/dL (> 60) Cholesterol/HDL Ratio 3.8 (3.3-4.4) Arterial Blood pH 6.960 (7.350-7.450) Arterial Blood Partial Pressure CO2 16.9 mmHg (35.0-45.0) *L Arterial Blood Partial Pressure O2 129.3 mmHg (75.0-100.0) H Arterial Blood HCO3 3.7 mmol/L (22.0-26.0) L Arterial Blood Oxygen Saturation 95.7 % (92.0-98.0) Arterial Blood Base Excess -26.6 Huang Test Positive Impression/Recommendations Problems: (1) persistant lethargy 2/2 toxic/methabolic encephalopathy (2) Diabetes mellitus (3) JENNIFER (acute kidney injury) (4) Pacemaker (5) Rhabdomyolysis (6) Hyperkalemia (7) Dehydration Status: not improved, unchanged Recommendations # [id number] hold unessential meds cont present rx SILVANO HOLLAND Sep 12, 2016 12:25
--- NOTE | 2016-09-12 12:58 | Diagnostic Imaging Report ---
Indication: Chest Pain Comparison: 10/10/2006 A single view chest radiograph was obtained. Findings: No definite infiltrate or pulmonary vascular congestion identified. Pacemakers noted on the left side. Exam is limited by motion. The heart is enlarged. The aorta is mildly enlarged consistent with atherosclerotic vascular disease. The bones are osteopenic. Impression: No acute disease
--- NOTE | 2016-09-12 13:17 | General Progress Note ---
Assessment/Plan Problem List: (1) Toxic metabolic encephalopathy ICD Codes: G92 - Toxic encephalopathy SNOMED: 250314419 (2) JENNIFER (acute kidney injury) ICD Codes: N17.9 - Acute kidney failure, unspecified SNOMED: 49486122 (3) Hyperkalemia ICD Codes: E87.5 - Hyperkalemia SNOMED: 60457971 (4) High anion gap metabolic acidosis ICD Codes: E87.2 - Acidosis SNOMED: 78485688 (5) Pacemaker ICD Codes: Z95.0 - Presence of cardiac pacemaker SNOMED: 948462099, 870765272 (6) Diabetes mellitus ICD Codes: E11.9 - Type 2 diabetes mellitus without complications SNOMED: 68666144 Status: stable Assessment/Plan Utox positive for opioids and barbiturates which may be likely culprits of encephalopathy. Unclear if pt had overdosed and if it was intentional or not. JENNIFER likely 2/2 severe dehydration (given pt found down) vs 2/2 drug overdose vs component rhabdomyolysis (though CK not that elevated) Appreciate pulm/critical care, nephrology rec's s/p temporary HD line placement on 09/12/16 HD initiated on 09/12/16 Cont IVFs Trend BMP, VBG SW consult to locate family and gather more history Give high anion gap metabolic acidosis, check salicylate level Check osmolal gap RALF DVT Prophylaxis: SCD, HSQ Code Status: Full Hospital Classification Declaration: Based on this initial evaluation, and depending on the patient's clinical course, I anticipate that this patient will require hospitalization for 3-4 days for JENNIFER, severe metabolic acidosis, and close respiratory/hemodynamic monitoring. Disposition: Once the patient is stable to leave the hospital, I anticipate the patient will likely be discharged to the following environment: home with HH vs SNF I spent 42 minutes on this patient's case, and 22 minutes were dedicated to counseling and/or care coordination. Discussed with patient/family, nursing staff, SW/CM, ER physician, nephrology regarding clinical status, treatment course, and disposition planning. Time of note may not reflect time of encounter. Subjective Date patient seen: Sep 12, 2016 Time patient seen: 13:17 ROS Limited/Unobtainable: Yes Allergies: Coded Allergies: NO KNOWN ALLERGIES (Verified Allergy, Unknown, 09/12/16) Subjective HD line placed early this AM and pt initiated on dialysis Pt cont to be somnolent but awakens to voice and pain Unable to obtain ROS given AMS Objective Last 24 Hour Vital Signs Date Time Temp Pulse Resp B/P Pulse Ox O2 Delivery O2 Flow Rate FiO2 09/12/16 12:39 Nasal Cannula 09/12/16 12:00 62 09/12/16 12:00 97.1 62 18 120/75 99 Nasal Cannula 2.0 09/12/16 11:00 61 20 114/90 98 Nasal Cannula 2.0 09/12/16 10:00 61 20 109/57 99 Nasal Cannula 2.0 09/12/16 09:00 61 8 99/54 100 Nasal Cannula 2.0 09/12/16 08:35 Nasal Cannula 09/12/16 08:00 62 09/12/16 08:00 96.9 64 20 104/57 99 Nasal Cannula 2.0 09/12/16 07:00 63 20 102/56 99 Nasal Cannula 2.0 09/12/16 06:54 Nasal Cannula 2.0 28 09/12/16 06:54 98 Nasal Cannula 2.0 28 09/12/16 06:00 62 20 98/42 98 Nasal Cannula 2.0 09/12/16 05:00 66 20 103/86 99 Nasal Cannula 2.0 09/12/16 04:00 96.9 63 19 99/41 99 Nasal Cannula 2.0 09/12/16 04:00 63 09/12/16 03:00 62 21 99/60 98 Nasal Cannula 2.0 09/12/16 02:00 62 17 106/36 99 Nasal Cannula 2.0 09/12/16 01:00 63 18 100/44 98 Nasal Cannula 2.0 09/12/16 00:00 62 09/12/16 00:00 94.2 62 18 106/46 99 Nasal Cannula 2.0 09/11/16 23:27 99 Nasal Cannula 2.0 28 09/11/16 23:25 83 16 Nasal Cannula 2.0 28 09/11/16 23:24 Nasal Cannula 2.0 28 09/11/16 23:00 62 19 106/46 99 Nasal Cannula 2.0 09/11/16 22:00 62 19 114/36 98 Nasal Cannula 2.0 09/11/16 21:00 62 21 118/42 98 Nasal Cannula 2.0 09/11/16 20:30 62 09/11/16 20:30 94.1 62 13 106/61 98 Nasal Cannula 2.0 09/11/16 20:09 98.9 60 13 121/73 99 Room Air 09/11/16 19:13 98.9 60 13 121/73 99 Room Air 09/11/16 18:57 61 15 99 Room Air 09/11/16 18:41 62 16 Room Air 09/11/16 18:41 62 16 98 Room Air 09/11/16 16:33 62 13 112/67 98 Room Air 09/11/16 15:19 62 12 123/62 99 Room Air Intake and Output 09/11/16 09/12/16 19:00 07:00 Intake Total 2030 ml Output Total 465 ml Balance 1565 ml Intake Oral 180 ml IV Total 1850 ml Output Urine Total 465 ml # Voids 1 10 # Bowel Movements 5 Laboratory Tests 09/11/16 16:25: White Blood Count 12.4H, Red Blood Count 4.27, Hemoglobin 13.6, Hematocrit 44.4 , Mean Corpuscular Volume 104H, Mean Corpuscular Hemoglobin 31.7H, Mean Corpuscular Hemoglobin Concent 30.6L, Red Cell Distribution Width 15.2H, Platelet Count 162, Mean Platelet Volume 8.4, Neutrophils (%) (Auto) 92.6H, Lymphocytes (%) (Auto) 4.2L, Monocytes (%) (Auto) 2.8, Eosinophils (%) (Auto) 0.0, Basophils (%) (Auto) 0.3, Sodium Level 146H, Potassium Level 7.6*H, Chloride Level 107, Carbon Dioxide Level < 6*L, Anion Gap 33H, Blood Urea Nitrogen 141H, Creatinine 9.7H, Estimat Glomerular Filtration Rate , Glucose Level 188H, Calcium Level 7.9L, Total Bilirubin 0.4, Aspartate Amino Transf (AST /SGOT) 21, Alanine Aminotransferase (ALT/SGPT) 17, Alkaline Phosphatase 130H, Total Creatine Kinase 281H, Creatine Kinase MB 21.0H, Creatine Kinase MB Relative Index 7.4, Troponin I < 0.30, Total Protein 6.5L, Albumin 3.7, Globulin 2.8, Albumin/Globulin Ratio 1.3 09/11/16 18:00: Urine Color Pale yellow, Urine Appearance Clear, Urine pH 5, Urine Specific Atkinson 1.020, Urine Protein 4+H, Urine Glucose (UA) Negative, Urine Ketones 1+H , Urine Occult Blood 2+H, Urine Nitrite Negative, Urine Bilirubin Negative, Urine Urobilinogen Normal, Urine Leukocyte Esterase 1+H, Urine RBC 0-2, Urine WBC 0-2, Urine Squamous Epithelial Cells Occasional, Urine Amorphous Sediment ModerateH, Urine Bacteria ModerateH, Urine Opiates Screen PositiveH, Urine Barbiturates Screen PositiveH, Phencyclidine (PCP) Screen Negative, Urine Amphetamines Screen Negative, Urine Benzodiazepines Screen Negative, Urine Cocaine Screen Negative, Urine Marijuana (THC) Screen Negative 09/11/16 18:30: Sodium Level 145, Potassium Level 7.9*H, Chloride Level 107, Carbon Dioxide Level < 6*L, Anion Gap 32H, Blood Urea Nitrogen 142H, Creatinine 9.3H, Estimat Glomerular Filtration Rate , Glucose Level 199H, Calcium Level 7.6L, Total Bilirubin 0.4, Aspartate Amino Transf (AST/SGOT) 19, Alanine Aminotransferase ( ALT/SGPT) 16, Alkaline Phosphatase 119H, Total Protein 5.9L, Albumin 3.6, Globulin 2.3, Albumin/Globulin Ratio 1.5 09/11/16 22:45: Sodium Level 146H, Potassium Level 8.1*H, Chloride Level 108H, Carbon Dioxide Level < 6*L, Anion Gap 32H, Blood Urea Nitrogen 147H, Creatinine 9.3H, Estimat Glomerular Filtration Rate , Glucose Level 220H, Calcium Level 7.6L 09/11/16 23:55: Sodium Level 143, Potassium Level 7.1*H, Chloride Level 106, Carbon Dioxide Level < 6*L, Anion Gap 31H, Blood Urea Nitrogen 141H, Creatinine 8.8H, Estimat Glomerular Filtration Rate , Glucose Level 422#H, Calcium Level 7.2L 09/12/16 04:20: Sodium Level 144, Potassium Level 7.5*H, Chloride Level 106, Carbon Dioxide Level < 6*L, Anion Gap 32H, Blood Urea Nitrogen 143H, Creatinine 9.2H, Estimat Glomerular Filtration Rate , Glucose Level 421H, Calcium Level 7.0L, White Blood Count 9.3, Red Blood Count 3.59L, Hemoglobin 11.1L, Hematocrit 37.1, Mean Corpuscular Volume 103H, Mean Corpuscular Hemoglobin 30.9, Mean Corpuscular Hemoglobin Concent 29.9L, Red Cell Distribution Width 15.6H, Platelet Count 159 , Mean Platelet Volume 9.1, Neutrophils (%) (Auto) , Lymphocytes (%) (Auto) , Monocytes (%) (Auto) , Eosinophils (%) (Auto) , Basophils (%) (Auto) , Differential Total Cells Counted 100, Neutrophils % (Manual) 85H, Lymphocytes % (Manual) 9L, Monocytes % (Manual) 5, Eosinophils % (Manual) 0, Basophils % ( Manual) 0, Band Neutrophils 1, Platelet Estimate Adequate, Platelet Morphology Normal, Hypochromasia 1+, Anisocytosis 1+, Hemoglobin A1c 4.8, Lactic Acid Level 1.60, Uric Acid 8.1H, Phosphorus Level 14.2H, Magnesium Level 1.9, Total Bilirubin 0.5, Gamma Glutamyl Transpeptidase 21, Aspartate Amino Transf (AST/ SGOT) 37, Alanine Aminotransferase (ALT/SGPT) 17, Alkaline Phosphatase 107H, Total Creatine Kinase 331H, Troponin I 1.87*H, Pro-B-Type Natriuretic Peptide 18973T, Total Protein 4.9L, Albumin 2.9L, Globulin 2.0, Albumin/Globulin Ratio 1.4, Triglycerides Level 146, Cholesterol Level 99, LDL Cholesterol 44L, HDL Cholesterol 26, Cholesterol/HDL Ratio 3.8 09/12/16 05:35: Arterial Blood pH 6.960*L, Arterial Blood Partial Pressure CO2 16.9*L, Arterial Blood Partial Pressure O2 129.3H, Arterial Blood HCO3 3.7L, Arterial Blood Oxygen Saturation 95.7, Arterial Blood Base Excess -26.6, Huang Test Positive 09/12/16 10:30: Sodium Level 152H, Potassium Level 4.1, Chloride Level 111H, Carbon Dioxide Level 17L, Anion Gap 24H, Blood Urea Nitrogen 89#H, Creatinine 6.0H, Estimat Glomerular Filtration Rate , Glucose Level 283#H, Calcium Level 6.3L Height (Feet): 5 Height (Inches): 6.00 Weight (Pounds): 142 Objective General: somnolent, arouses to voice and pain Head: normocephalic, without obvious abnormality, atraumatic Eyes: conjunctivae/corneas clear. PERRL, EOM's intact Throat: lips, mucosa, and tongue normal. MMM Neck: supple, symmetrical, trachea midline, and no JVD Lungs: clear to auscultation bilaterally Heart: regular rate and rhythm, S1, S2 normal, no murmur, click, rub or gallop Abdomen: soft, non-tender, non-distended, bowel sounds normal; no masses or organomegaly Extremities: extremities normal, atraumatic, no cyanosis or edema Pulses: 2+ and symmetric Skin: skin color, texture, turgor normal; no rashes or lesions Neurologic: unable to assess--moving all extremities Rubia Ma M.D. Sep 12, 2016 13:17
[2016-09-12 14:37] LABS: ABG ALLEN TEST POSITIVE; ABG BASE EXCESS -12.8
--- NOTE | 2016-09-12 15:19 | Diagnostic Imaging Report ---
Indication: Dyspnea Comparison: 09/11/2016 A single view chest radiograph was obtained. Findings: Hazy opacification noted in the right hemithorax. This may be soft tissue attenuation. Presence of a small right pleural effusion is not excluded. Cardiomegaly is again noted. A right subclavian Wood catheter noted. The tip is in the jugular vein oriented cranially. Impression: Mild CHF suspected. Right subclavian Wood catheter as discussed above
[2016-09-12] MEDS: NovoLOG Insulin Flexpen SUBQ SCH ×2 (17:28→23:45)
--- NOTE | 2016-09-12 19:10 | Consultation ---
DATE OF CONSULTATION: 09/12/2016 NEUROLOGICAL CONSULTATION REQUESTING PHYSICIAN: Ja Diaz M.D. HISTORY OF PRESENT ILLNESS: The patient is a 76-year-old Maltese speaking female seen in neurological consultation to evaluate a profound changes in mental status. The patient unable provide with medical history. This was compiled from medical records. Now that the patient was brought to emergency room after not being seen by her neighbors for two days. On the day of admission, was found to be on the floor covered with own feces. She was unable to provide with a history. On admission to the emergency, she described as being "calm and collected." Her vital signs remained stable, heart rate of 62, blood pressure 143/72. Her initial assessment included CAT scan of the brain revealed moderate diffuse atrophy and no acute event. Chest x-ray improved pulmonary edema since the previous examination and generalized osteopenia noted. Right subclavian catheter with its tip oriented cranially within the jugular vein noted. Laboratory work included toxicology panel, which was positive for opiates and barbiturates. Urinalysis 1+ leukocyte esterase, 4+ protein, and 1+ ketones. Chemistry panel with potassium 7.1, carbon dioxide is less than , anion gap of 31, BUN of 141, creatinine 8.8 and blood sugar 422. Troponin 1.87 and BNP of 30,707. Albumin 2.9. Phosphorus 14.2. Calcium 7.0. Hematology panel with anemia and WBC at 12.4 and elevated MCV and MCH. Since admission till present, the patient was started on hemodialysis, she was described as at times open eyes, with no eye contact and nonverbal, but remaining predominantly with eyes closed and verbally unresponsive. PAST MEDICAL HISTORY: According to medical records, the patient has a history of coronary artery disease. She is status post pacemaker placement. She has a history of diabetes type 2 and history of hypertension. MEDICATIONS: Treatment prior to admission included amiodarone, aspirin, vitamin D, Sensipar, Klonopin 1 mg b.i.d., Nexium, Lyrica 25 mg t.i.d., Crestor, and hydralazine. ALLERGIES: None reported. SOCIAL HISTORY: Lives in apartment. She is single woman. No evidence of previous alcohol or drug abuse. FAMILY HISTORY: Unavailable. REVIEW OF SYSTEMS: Unable to obtain due the patient's status. PHYSICAL EXAMINATION: GENERAL: The patient is well-developed and ill-appearing female, now on hemodialysis. VITAL SIGNS: Stable. Blood pressure 114/90, afebrile, and heart rate of 61. HEENT: Head, normocephalic. No evidence of trauma. Eyes, ears, and throat are clear. NECK: Neck is rigid. MUSCULOSKELETAL: Puffiness in both ankles. Peripheral pulses 1+ symmetric. MENTAL STATUS: Unarousable, in stimulation moans and groans, but does not open eyes, does not follow commands given in her [place] language. CRANIAL NERVE II: Pupils, both responding to light and accommodation. Extraocular movement intact. No nystagmus. CRANIAL NERVE V: Normal corneal responses. CRANIAL NERVE VII: No gross asymmetry. CRANIAL NERVE VIII: Unable to test. CRANIAL NERVES IX THROUGH XII: Tongue is in midline. MOTOR EXAMINATION: Diffuse rigidity, with able to hold arms against the gravity with left evidence on the right. Deep tendon reflexes depressed bilaterally. Plantar responses flexor. SENSORY EXAMINATION: No response to pin stimulation. IMPRESSION: 1. The patient is a 76-year-old female with multiple stroke risk factors, now presenting with a persistent lethargy, most likely result of underlying toxic/metabolic encephalopathy contributed by renal failure, use of barbiturates and opiates, doubt presence of stroke or seizure event. 2. Hypertension. 3. Diabetes type 2. 4. Acute renal failure, now on hemodialysis. 5. Pacemaker in place. RECOMMENDATION: The patient continue current treatment including hemodialysis. If the patient stabilizes, we will Neurology reassessment. Meanwhile, hold all unessential treatment including statins and sedatives encourage this including benzodiazepines. Thank you for allowing me to see this interesting patient in neurological consultation. Jarret Tucker M.D. DR: MAXIMINO JOB#: [id number] CC:
[2016-09-12 20:34] LABS: ACETAMINOPHEN < 10 ug/mL (10-30)
[2016-09-12 20:49] LABS: ALANINE AMINOTRANSFERASE 18 U/L (3-33); ALBUMIN/GLOBULIN RATIO 1.3 (1.0-2.7); ANION GAP 26 (5-15); ASPARTATE AMINO TRANSFERASE 81 U/L (5-40); CARBON DIOXIDE 13 mEQ/L (20-30); CHLORIDE 111 mEQ/L (98-107); CREATININE 7.7 mg/dL (0.5-0.9); POTASSIUM 4.7 mEQ/L (3.4-4.9); SODIUM 150 mEQ/L (135-145); TOTAL PROTEIN 4.3 g/dL (6.6-8.7)
[2016-09-12 21:09] LABS: CALCIUM 5.6 mg/dL (8.6-10.2)
[2016-09-12 21:10] LABS: PHOSPHORUS 9.9 mg/dL (2.5-4.8)
[2016-09-12 21:13] LABS: MEAN CORPUSCULAR HEMOGLOBIN 30.5 PG (27.0-31.0); MEAN CORPUSCULAR HGB CONC 31.3 G/DL (32.0-36.0); MEAN CORPUSCULAR VOLUME 97 FL (80-99); MEAN PLATELET VOLUME 7.9 FL (6.5-10.1); PLATELET COUNT 74 K/UL (150-450); RED BLOOD COUNT 2.94 M/UL (4.20-5.40); RED CELL DISTRIBUTION WIDTH 14.3 % (11.6-14.8)
[2016-09-12 22:28] LABS: BAND NEUTROPHILS % (MANUAL) 17 % (0-8); LYMPHOCYTES % (MANUAL) 8 % (20-45); NEUTROPHILS % (MANUAL) 64 % (45-75); TOTAL CELLS COUNTED 100
[2016-09-12 22:29] LABS: BASOPHILS % (MANUAL) 0 % (0-2); EOSINOPHILS % (MANUAL) 0 % (0-3); PLATELET ESTIMATE DECREASED
[2016-09-12 22:30] LABS: ANISOCYTOSIS 1+; HYPOCHROMASIA 1+; MACROCYTES 1+; PLATELET MORPHOLOGY NORMAL; POLYCHROMASIA 1+
[2016-09-12] MEDS: Sodium Citrate 30ml ORAL SCH (23:41)
[2016-09-13] VITALS (19 sets, daily range): BP systolic 112–175; BP diastolic 35–103
[2016-09-13 06:09] LABS: MEAN CORPUSCULAR HGB CONC 32.4 G/DL (32.0-36.0); MEAN CORPUSCULAR VOLUME 96 FL (80-99); MEAN PLATELET VOLUME 8.5 FL (6.5-10.1); PLATELET COUNT 85 K/UL (150-450); RED BLOOD COUNT 3.11 M/UL (4.20-5.40); RED CELL DISTRIBUTION WIDTH 14.4 % (11.6-14.8); WHITE BLOOD COUNT 6.7 K/UL (4.8-10.8)
[2016-09-13 06:40] LABS: TROPONIN I 13.54 ng/mL (<=0.30)
[2016-09-13 06:46] LABS: ALANINE AMINOTRANSFERASE 17 U/L (3-33); ALBUMIN/GLOBULIN RATIO 1.1 (1.0-2.7); ANION GAP 28 (5-15); ASPARTATE AMINO TRANSFERASE 61 U/L (5-40); CARBON DIOXIDE 13 mEQ/L (20-30); CHLORIDE 111 mEQ/L (98-107); CREATININE 8.2 mg/dL (0.5-0.9); CRP QUANT 4.7 mg/dL (< 0.5); HEMOLYSIS 45; MAGNESIUM 1.5 mg/dL (1.7-2.5); PHOSPHORUS 10.1 mg/dL (2.5-4.8); POTASSIUM 4.7 mEQ/L (3.4-4.9); SODIUM 152 mEQ/L (135-145); TOTAL PROTEIN 4.5 g/dL (6.6-8.7); URIC ACID 7.2 mg/dL (3.0-7.5)
[2016-09-13 06:48] LABS: CALCIUM 5.4 mg/dL (8.6-10.2)
[2016-09-13] MEDS: Sodium Citrate 30ml ORAL SCH (06:50)
[2016-09-13] MEDS: Renvela 800mg Pkt ORAL SCH ×2 (06:50→18:55)
[2016-09-13] MEDS: NovoLOG Insulin Flexpen SUBQ SCH ×3 (06:52→18:58)
[2016-09-13 08:10] LABS: ANISOCYTOSIS 1+; BAND NEUTROPHILS % (MANUAL) 5 % (0-8); BASOPHILS % (MANUAL) 0 % (0-2); EOSINOPHILS % (MANUAL) 1 % (0-3); HYPOCHROMASIA 1+; LYMPHOCYTES % (MANUAL) 16 % (20-45); NEUTROPHILS % (MANUAL) 66 % (45-75); PLATELET ESTIMATE DECREASED; PLATELET MORPHOLOGY NORMAL; TOTAL CELLS COUNTED 100
--- NOTE | 2016-09-13 08:57 | General Progress Note ---
Assessment/Plan Status: stable Status Narrative receiving her second HD now Assessment/Plan Altered level of consciousness Dehydration JENNIFER (acute kidney injury) Severe Hyperkalemia Possible Rhabdomyolysis Pace Maker Plan: Phos binders to treat high Phos and low Calcium IV protonix start Nephro NGT feeding Monitor renal parameters HD in am again Subjective ROS Limited/Unobtainable: No Constitutional: Reports: malaise, weakness Allergies: Coded Allergies: NO KNOWN ALLERGIES (Verified Allergy, Unknown, 09/12/16) Objective Last 24 Hour Vital Signs Date Time Temp Pulse Resp B/P Pulse Ox O2 Delivery O2 Flow Rate FiO2 09/13/16 06:00 63 17 175/49 96 Nasal Cannula 2.0 09/13/16 05:40 98.4 66 16 143/58 96 Nasal Cannula 2.0 09/13/16 05:40 Nasal Cannula 2.0 09/13/16 05:00 64 15 132/38 95 Nasal Cannula 2.0 09/13/16 04:00 66 09/13/16 04:00 66 20 160/103 94 Nasal Cannula 2.0 09/13/16 03:00 62 12 112/40 96 Nasal Cannula 2.0 09/13/16 02:00 64 18 129/35 97 Nasal Cannula 2.0 09/13/16 01:00 64 17 137/49 99 Nasal Cannula 2.0 09/13/16 00:00 63 09/13/16 00:00 97.4 63 17 132/47 98 Nasal Cannula 2.0 09/12/16 23:00 66 18 134/43 97 Nasal Cannula 2.0 09/12/16 22:00 63 18 137/38 99 Nasal Cannula 2.0 09/12/16 21:00 63 18 137/39 99 Nasal Cannula 2.0 09/12/16 20:00 97.8 65 17 137/73 98 Nasal Cannula 2.0 09/12/16 20:00 65 09/12/16 19:21 Nasal Cannula 2.0 28 09/12/16 19:20 97 Nasal Cannula 2.0 28 09/12/16 18:00 64 17 138/44 100 Nasal Cannula 2.0 09/12/16 17:00 68 18 131/39 98 Nasal Cannula 2.0 09/12/16 16:00 65 09/12/16 16:00 99.3 65 18 130/34 97 Nasal Cannula 2.0 09/12/16 15:00 65 20 134/35 98 Nasal Cannula 2.0 09/12/16 14:00 65 20 124/67 99 Nasal Cannula 2.0 09/12/16 13:00 65 20 125/69 100 Nasal Cannula 2.0 09/12/16 12:39 Nasal Cannula 09/12/16 12:00 62 09/12/16 12:00 97.1 62 18 120/75 99 Nasal Cannula 2.0 09/12/16 11:00 61 20 114/90 98 Nasal Cannula 2.0 09/12/16 10:00 61 20 109/57 99 Nasal Cannula 2.0 09/12/16 09:00 61 8 99/54 100 Nasal Cannula 2.0 Intake and Output 09/12/16 09/13/16 19:00 07:00 Intake Total 747.5 ml 915 ml Output Total 100 ml 90 ml Balance 647.5 ml 825 ml IV Total 737.5 ml 825 ml Other 10 ml 90 ml Output Urine Total 100 ml 90 ml Hemodialysis UF 0 ml # Bowel Movements 4 Laboratory Tests 09/12/16 10:30: Sodium Level 152H, Potassium Level 4.1, Chloride Level 111H, Carbon Dioxide Level 17L, Anion Gap 24H, Blood Urea Nitrogen 89#H, Creatinine 6.0H, Estimat Glomerular Filtration Rate , Glucose Level 283#H, Calcium Level 6.3L 09/12/16 14:22: Arterial Blood pH 7.330L, Arterial Blood Partial Pressure CO2 23.0*L, Arterial Blood Partial Pressure O2 108.3H, Arterial Blood HCO3 11.6L, Arterial Blood Oxygen Saturation 96.0, Arterial Blood Base Excess -12.8, Huang Test Positive 09/12/16 20:00: Sodium Level 150H, Potassium Level 4.7, Chloride Level 111H, Carbon Dioxide Level 13L, Anion Gap 26H, Blood Urea Nitrogen 116#H, Creatinine 7.7H, Estimat Glomerular Filtration Rate , Glucose Level 204H, Calcium Level 5.6*L, White Blood Count 6.0, Red Blood Count 2.94L, Hemoglobin 9.0L, Hematocrit 28.6L, Mean Corpuscular Volume 97, Mean Corpuscular Hemoglobin 30.5, Mean Corpuscular Hemoglobin Concent 31.3L, Red Cell Distribution Width 14.3, Platelet Count 74#L , Mean Platelet Volume 7.9, Neutrophils (%) (Auto) , Lymphocytes (%) (Auto) , Monocytes (%) (Auto) , Eosinophils (%) (Auto) , Basophils (%) (Auto) , Differential Total Cells Counted 100, Neutrophils % (Manual) 64, Lymphocytes % ( Manual) 8L, Monocytes % (Manual) 11H, Eosinophils % (Manual) 0, Basophils % ( Manual) 0, Band Neutrophils 17H, Platelet Estimate DecreasedL, Platelet Morphology Normal, Polychromasia 1+, Hypochromasia 1+, Anisocytosis 1+, Macrocytosis 1+, Plasma/Serum Osmolality [Pending], Phosphorus Level 9.9H, Total Bilirubin 0.4, Aspartate Amino Transf (AST/SGOT) 81H, Alanine Aminotransferase (ALT/SGPT) 18, Alkaline Phosphatase 88, Total Protein 4.3L, Albumin 2.5L, Globulin 1.8, Albumin/Globulin Ratio 1.3, Salicylates Level < 1L, Acetaminophen Level < 10L 09/13/16 04:40: Sodium Level 152H, Potassium Level 4.7, Chloride Level 111H, Carbon Dioxide Level 13L, Anion Gap 28H, Blood Urea Nitrogen 122H, Creatinine 8.2H, Estimat Glomerular Filtration Rate , Glucose Level 153H, Calcium Level 5.4*L, White Blood Count 6.7, Red Blood Count 3.11L, Hemoglobin 9.6L, Hematocrit 29.8L, Mean Corpuscular Volume 96, Mean Corpuscular Hemoglobin 31.0, Mean Corpuscular Hemoglobin Concent 32.4, Red Cell Distribution Width 14.4, Platelet Count 85L, Mean Platelet Volume 8.5, Neutrophils (%) (Auto) , Lymphocytes (%) (Auto) , Monocytes (%) (Auto) , Eosinophils (%) (Auto) , Basophils (%) (Auto) , Differential Total Cells Counted 100, Neutrophils % (Manual) 66, Lymphocytes % ( Manual) 16L, Monocytes % (Manual) 12H, Eosinophils % (Manual) 1, Basophils % ( Manual) 0, Band Neutrophils 5, Platelet Estimate DecreasedL, Platelet Morphology Normal, Hypochromasia 1+, Anisocytosis 1+, Phosphorus Level 10.1H, Total Bilirubin 0.4, Aspartate Amino Transf (AST/SGOT) 61H, Alanine Aminotransferase (ALT/SGPT) 17, Alkaline Phosphatase 92, Total Protein 4.5L, Albumin 2.4L, Globulin 2.1, Albumin/Globulin Ratio 1.1, Lactic Acid Level 1.10, Uric Acid 7.2, Magnesium Level 1.5L, Troponin I 13.54*H, C-Reactive Protein, Quantitative 4.7H, Pro-B-Type Natriuretic Peptide 54985T Height (Feet): 5 Height (Inches): 6.00 Weight (Pounds): 142 General Appearance: no apparent distress Objective other PE not changed RICKI SALGADO Sep 13, 2016 08:57
[2016-09-13] MEDS: Heparin 5000 units/ml inj SUBQ SCH ×2 (09:00→22:09)
[2016-09-13] MEDS ORDERED: Heparin 2000 units/Ns 1000ml INJ PRN (09:30)
[2016-09-13] MEDS ORDERED: Sodium Bicarbonate 8.4% 50ml Inj IV PRN (09:30)
[2016-09-13] MEDS ORDERED: Lidocaine 1% Plain 30 ml INJ PRN (09:30)
[2016-09-13 09:36] LABS: INR 1.3 (0.9-1.1); PROTHROMBIN TIME 13.1 SEC (9.30-11.50)
[2016-09-13] MEDS: Aluminum Hydroxide Gel Susp 15ml NG SCH ×5 (09:54→22:07)
[2016-09-13] MEDS: Pantoprazole Inj IVP SCH ×2 (09:54→22:23)
[2016-09-13 10:53] LABS: ABG PCO2 28.7 mmHg (35.0-45.0)
[2016-09-13 10:54] LABS: ABG ALLEN TEST POSITIVE
--- NOTE | 2016-09-13 10:55 | Pulmonolgy Critical Care Note ---
Critical Care - Asmt/Plan Problems: (1) JENNIFER (acute kidney injury) (2) Hyperkalemia (3) NSTEMI (non-ST elevated myocardial infarction) (4) Diabetes mellitus (5) Pacemaker (6) Altered level of consciousness Respiratory: monitor respiratory rate, adjust FIO2, weaning trial Cardiac: continue to monitor HR/BP Renal: F/U I&O, keep IV fluid, check electrolytes Infectious Disease: check cultures, continue antibiotics Gastrointestinal: continue feedings/current rate Endocrine: monitor blood sugar, continue sliding scale insulin Hematologic: monitor H/H, transfuse if hgb<8.5 Neurologic: PRN Ativan, PRN Morphine, keep patient comfortable Affect: PRN ativan Prophylaxis: Protonix Disposition: keep in ICU Discussed with: nurses, consultants, 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 - Objective Last 24 Hour Vital Signs Date Time Temp Pulse Resp B/P Pulse Ox O2 Delivery O2 Flow Rate FiO2 09/13/16 09:09 Nasal Cannula 2.0 09/13/16 09:08 98.4 64 19 163/60 98 Nasal Cannula 2.0 09/13/16 06:00 63 17 175/49 96 Nasal Cannula 2.0 09/13/16 05:40 98.4 66 16 143/58 96 Nasal Cannula 2.0 09/13/16 05:40 Nasal Cannula 2.0 09/13/16 05:00 64 15 132/38 95 Nasal Cannula 2.0 09/13/16 04:00 66 09/13/16 04:00 66 20 160/103 94 Nasal Cannula 2.0 09/13/16 03:00 62 12 112/40 96 Nasal Cannula 2.0 09/13/16 02:00 64 18 129/35 97 Nasal Cannula 2.0 09/13/16 01:00 64 17 137/49 99 Nasal Cannula 2.0 09/13/16 00:00 63 09/13/16 00:00 97.4 63 17 132/47 98 Nasal Cannula 2.0 09/12/16 23:00 66 18 134/43 97 Nasal Cannula 2.0 09/12/16 22:00 63 18 137/38 99 Nasal Cannula 2.0 09/12/16 21:00 63 18 137/39 99 Nasal Cannula 2.0 09/12/16 20:00 97.8 65 17 137/73 98 Nasal Cannula 2.0 09/12/16 20:00 65 3/2/17 19:21 Nasal Cannula 2.0 28 09/12/16 19:20 97 Nasal Cannula 2.0 28 09/12/16 18:00 64 17 138/44 100 Nasal Cannula 2.0 09/12/16 17:00 68 18 131/39 98 Nasal Cannula 2.0 09/12/16 16:00 65 09/12/16 16:00 99.3 65 18 130/34 97 Nasal Cannula 2.0 09/12/16 15:00 65 20 134/35 98 Nasal Cannula 2.0 09/12/16 14:00 65 20 124/67 99 Nasal Cannula 2.0 09/12/16 13:00 65 20 125/69 100 Nasal Cannula 2.0 09/12/16 12:39 Nasal Cannula 09/12/16 12:00 62 09/12/16 12:00 97.1 62 18 120/75 99 Nasal Cannula 2.0 09/12/16 11:00 61 20 114/90 98 Nasal Cannula 2.0 Status: awake Condition: critical, grave Neck: full ROM Lungs: clear Heart: HR/BP stable, HR/BP unstable, regular Abdomen: soft, active bowel sounds, feeding tube Extremities: no C/C/E Decubiti: location, stage Micro: Microbiology Date/Time Source Procedure Growth Status 09/11/16 16:25 Blood Blood Culture - Preliminary NO GROWTH AFTER 24 HOURS Resulted 09/11/16 16:10 Blood Blood Culture - Preliminary NO GROWTH AFTER 24 HOURS Resulted 09/11/16 18:00 Urine,Clean Catch Urine Culture - Preliminary NO GROWTH AFTER 24 HOURS Resulted Accucheck: 132 Critical Care - Subjective ROS Limited/Unobtainable: Yes ICU Day: 2 Interval Events: improving, getting HD Condition: critical FI02: 28 Sputum Amount: None I&O: Intake and Output 09/12/16 09/13/16 19:00 07:00 Intake Total 747.5 ml 915 ml Output Total 100 ml 90 ml Balance 647.5 ml 825 ml IV Total 737.5 ml 825 ml Other 10 ml 90 ml Output Urine Total 100 ml 90 ml Hemodialysis UF 0 ml # Bowel Movements 4 CXR: no change Labs: Laboratory Tests Test 09/12/16 14:22 09/12/16 20:00 09/13/16 04:40 09/13/16 08:45 Arterial Blood pH 7.330 (7.350-7.450) Arterial Blood Partial Pressure CO2 23.0 mmHg (35.0-45.0) *L Arterial Blood Partial Pressure O2 108.3 mmHg (75.0-100.0) H Arterial Blood HCO3 11.6 mmol/L (22.0-26.0) L Arterial Blood Oxygen Saturation 96.0 % (92.0-98.0) Arterial Blood Base Excess -12.8 Huang Test Positive White Blood Count 6.0 K/UL (4.8-10.8) 6.7 K/UL (4.8-10.8) Red Blood Count 2.94 M/UL (4.20-5.40) L 3.11 M/UL (4.20-5.40) L Hemoglobin 9.0 G/DL (12.0-16.0) L 9.6 G/DL (12.0-16.0) L Hematocrit 28.6 % (37.0-47.0) L 29.8 % (37.0-47.0) L Mean Corpuscular Volume 97 FL (80-99) 96 FL (80-99) Mean Corpuscular Hemoglobin 30.5 PG (27.0-31.0) 31.0 PG (27.0-31.0) Mean Corpuscular Hemoglobin Concent 31.3 G/DL (32.0-36.0) L 32.4 G/DL (32.0-36.0) Red Cell Distribution Width 14.3 % (11.6-14.8) 14.4 % (11.6-14.8) Platelet Count 74 K/UL (150-450) #L 85 K/UL (150-450) L Mean Platelet Volume 7.9 FL (6.5-10.1) 8.5 FL (6.5-10.1) Neutrophils (%) (Auto) % (45.0-75.0) % (45.0-75.0) Lymphocytes (%) (Auto) % (20.0-45.0) % (20.0-45.0) Monocytes (%) (Auto) % (1.0-10.0) % (1.0-10.0) Eosinophils (%) (Auto) % (0.0-3.0) % (0.0-3.0) Basophils (%) (Auto) % (0.0-2.0) % (0.0-2.0) Differential Total Cells Counted 100 100 Neutrophils % (Manual) 64 % (45-75) 66 % (45-75) Lymphocytes % (Manual) 8 % (20-45) L 16 % (20-45) L Monocytes % (Manual) 11 % (1-10) H 12 % (1-10) H Eosinophils % (Manual) 0 % (0-3) 1 % (0-3) Basophils % (Manual) 0 % (0-2) 0 % (0-2) Band Neutrophils 17 % (0-8) H 5 % (0-8) Platelet Estimate Decreased L Decreased L Platelet Morphology Normal Normal Polychromasia 1+ Hypochromasia 1+ 1+ Anisocytosis 1+ 1+ Macrocytosis 1+ Sodium Level 150 mEQ/L (135-145) H 152 mEQ/L (135-145) H Potassium Level 4.7 mEQ/L (3.4-4.9) 4.7 mEQ/L (3.4-4.9) Chloride Level 111 mEQ/L (98-107) H 111 mEQ/L (98-107) H Carbon Dioxide Level 13 mEQ/L (20-30) L 13 mEQ/L (20-30) L Anion Gap 26 (5-15) H 28 (5-15) H Blood Urea Nitrogen 116 mg/dL (7-23) #H 122 mg/dL (7-23) H Creatinine 7.7 mg/dL (0.5-0.9) H 8.2 mg/dL (0.5-0.9) H Estimat Glomerular Filtration Rate mL/min (>60) mL/min (>60) Glucose Level 204 mg/dL (74-106) H 153 mg/dL (74-106) H Plasma/Serum Osmolality Pending Calcium Level 5.6 mg/dL (8.6-10.2) *L 5.4 mg/dL (8.6-10.2) *L Phosphorus Level 9.9 mg/dL (2.5-4.8) H 10.1 mg/dL (2.5-4.8) H Total Bilirubin 0.4 mg/dL (0.0-1.2) 0.4 mg/dL (0.0-1.2) Aspartate Amino Transf (AST/SGOT) 81 U/L (5-40) H 61 U/L (5-40) H Alanine Aminotransferase (ALT/SGPT) 18 U/L (3-33) 17 U/L (3-33) Alkaline Phosphatase 88 U/L (35-104) 92 U/L (35-104) Total Protein 4.3 g/dL (6.6-8.7) L 4.5 g/dL (6.6-8.7) L Albumin 2.5 g/dL (3.5-5.2) L 2.4 g/dL (3.5-5.2) L Globulin 1.8 g/dL 2.1 g/dL Albumin/Globulin Ratio 1.3 (1.0-2.7) 1.1 (1.0-2.7) Salicylates Level < 1 mg/dL (10-30) L Acetaminophen Level < 10 ug/mL (10-30) L Lactic Acid Level 1.10 mmol/L (0.66-2.22) Uric Acid 7.2 mg/dL (3.0-7.5) Magnesium Level 1.5 mg/dL (1.7-2.5) L Troponin I 13.54 ng/mL (<=0.30) *H C-Reactive Protein, Quantitative 4.7 mg/dL (< 0.5) H Pro-B-Type Natriuretic Peptide 74956 pg/mL (0-450) H Prothrombin Time 13.1 SEC (9.30-11.50) H Prothromb Time International Ratio 1.3 (0.9-1.1) H Activated Partial Thromboplast Time 37 SEC (23-33) H Test 09/13/16 10:15 Hepatitis B Surface Antigen Pending Hepatitis B Surface Antibody, Quant Pending Hepatitis C Antibody Pending LORENE RAMÍREZ Sep 13, 2016 10:55
[2016-09-13] MEDS ORDERED: Renvela 800mg Pkt ORAL SCH (12:00)
[2016-09-13 15:15] LABS: TROPONIN I 14.81 ng/mL (<=0.30)
--- NOTE | 2016-09-13 15:24 | General Progress Note ---
Assessment/Plan Problem List: (1) NSTEMI (non-ST elevated myocardial infarction) ICD Codes: I21.4 - Non-ST elevation (NSTEMI) myocardial infarction SNOMED: 94378662 (2) Acute systolic heart failure Assessment & Plan: EF 35-40% ICD Codes: I50.21 - Acute systolic (congestive) heart failure SNOMED: 030076385 (3) Toxic metabolic encephalopathy ICD Codes: G92 - Toxic encephalopathy SNOMED: 877985801 (4) JENNIFER (acute kidney injury) ICD Codes: N17.9 - Acute kidney failure, unspecified SNOMED: 96552197 (5) Hyperkalemia ICD Codes: E87.5 - Hyperkalemia SNOMED: 95709993 (6) High anion gap metabolic acidosis ICD Codes: E87.2 - Acidosis SNOMED: 47956118 (7) Pacemaker ICD Codes: Z95.0 - Presence of cardiac pacemaker SNOMED: 331374344, 225609737 (8) Diabetes mellitus ICD Codes: E11.9 - Type 2 diabetes mellitus without complications SNOMED: 46896827 Status: stable Assessment/Plan Utox positive for opioids and barbiturates which may be likely culprits of encephalopathy. Unclear if pt had overdosed and whether it is intentional or accidental Etiology of JENNIFER may be pre-renal 2/2 dehydration (found down x 2 days vs cardiorenal (given new found cardiomgyopathy and elevated BNP), component of rhabdomylosis, and/or ATN Pt also with NSTEMI, EF 35-50%--acute vs subacute. Has h/o CAD w/ stent to LAD Appreciate pulm/critical care, nephrology, neurology, cardiology rec's s/p temporary HD line placement on 09/12/16 HD initiated on 09/12/16; cont HD per renal Trend lytes and Cr Avoid nephrotoxic agents Plan for medical mgmt of NSTEMI a pt not a candidate for invasive therapy per cardiology Cont ASA, statin, coreg. No MELO-I/ARB given renal failure RALF DVT Prophylaxis: SCD, HSQ Code Status: Full Hospital Classification Declaration: Based on this initial evaluation, and depending on the patient's clinical course, I anticipate that this patient will require hospitalization for 3-4 days for JENNIFER, severe metabolic acidosis, NSTEMI , and close respiratory/hemodynamic monitoring. Disposition: Once the patient is stable to leave the hospital, I anticipate the patient will likely be discharged to the following environment: home with HH vs SNF I spent 42 minutes on this patient's case, and 22 minutes were dedicated to counseling and/or care coordination. Discussed with patient/family, nursing staff, SW/CM, pulm, cardiology, nephrology regarding clinical status, treatment course, and disposition planning. Time of note may not reflect time of encounter. Subjective Date patient seen: Sep 13, 2016 Time patient seen: 15:24 Allergies: Coded Allergies: NO KNOWN ALLERGIES (Verified Allergy, Unknown, 09/12/16) Subjective Trop uptrending, seen by Cardiology. TTE shows EF 35-40% K and bicarb improved since initiation of HD Pt more awake, alert Able to state where she is Plan for HD today per renal Objective Last 24 Hour Vital Signs Date Time Temp Pulse Resp B/P Pulse Ox O2 Delivery O2 Flow Rate FiO2 09/13/16 14:00 65 16 151/51 96 Nasal Cannula 2.0 09/13/16 13:00 63 15 146/61 95 Nasal Cannula 2.0 09/13/16 12:00 65 09/13/16 12:00 98.2 64 17 135/35 98 Nasal Cannula 2.0 09/13/16 11:00 67 17 155/50 97 Room Air 2.0 09/13/16 10:00 66 14 142/41 97 Room Air 2.0 09/13/16 09:09 Nasal Cannula 2.0 09/13/16 09:08 98.4 64 19 163/60 98 Nasal Cannula 2.0 09/13/16 09:00 68 17 163/60 96 Nasal Cannula 2.0 09/13/16 08:00 63 09/13/16 08:00 68 17 161/41 95 Nasal Cannula 2.0 09/13/16 07:00 64 17 150/60 96 Nasal Cannula 2.0 09/13/16 06:00 63 17 175/49 96 Nasal Cannula 2.0 09/13/16 05:40 98.4 66 16 143/58 96 Nasal Cannula 2.0 09/13/16 05:40 Nasal Cannula 2.0 09/13/16 05:00 64 15 132/38 95 Nasal Cannula 2.0 09/13/16 04:00 66 09/13/16 04:00 66 20 160/103 94 Nasal Cannula 2.0 09/13/16 03:00 62 12 112/40 96 Nasal Cannula 2.0 09/13/16 02:00 64 18 129/35 97 Nasal Cannula 2.0 09/13/16 01:00 64 17 137/49 99 Nasal Cannula 2.0 09/13/16 00:00 63 09/13/16 00:00 97.4 63 17 132/47 98 Nasal Cannula 2.0 09/12/16 23:00 66 18 134/43 97 Nasal Cannula 2.0 09/12/16 22:00 63 18 137/38 99 Nasal Cannula 2.0 09/12/16 21:00 63 18 137/39 99 Nasal Cannula 2.0 09/12/16 20:00 97.8 65 17 137/73 98 Nasal Cannula 2.0 09/12/16 20:00 65 09/12/16 19:21 Nasal Cannula 2.0 28 09/12/16 19:20 97 Nasal Cannula 2.0 28 09/12/16 18:00 64 17 138/44 100 Nasal Cannula 2.0 09/12/16 17:00 68 18 131/39 98 Nasal Cannula 2.0 09/12/16 16:00 65 09/12/16 16:00 99.3 65 18 130/34 97 Nasal Cannula 2.0 Intake and Output 09/12/16 09/13/16 19:00 07:00 Intake Total 747.5 ml 915 ml Output Total 100 ml 120 ml Balance 647.5 ml 795 ml IV Total 737.5 ml 825 ml Other 10 ml 90 ml Output Urine Total 100 ml 120 ml Hemodialysis UF 0 ml # Bowel Movements 5 Laboratory Tests 09/12/16 20:00: White Blood Count 6.0, Red Blood Count 2.94L, Hemoglobin 9.0L, Hematocrit 28.6L , Mean Corpuscular Volume 97, Mean Corpuscular Hemoglobin 30.5, Mean Corpuscular Hemoglobin Concent 31.3L, Red Cell Distribution Width 14.3, Platelet Count 74#L, Mean Platelet Volume 7.9, Neutrophils (%) (Auto) , Lymphocytes (%) (Auto) , Monocytes (%) (Auto) , Eosinophils (%) (Auto) , Basophils (%) (Auto) , Differential Total Cells Counted 100, Neutrophils % ( Manual) 64, Lymphocytes % (Manual) 8L, Monocytes % (Manual) 11H, Eosinophils % ( Manual) 0, Basophils % (Manual) 0, Band Neutrophils 17H, Platelet Estimate DecreasedL, Platelet Morphology Normal, Polychromasia 1+, Hypochromasia 1+, Anisocytosis 1+, Macrocytosis 1+, Sodium Level 150H, Potassium Level 4.7, Chloride Level 111H, Carbon Dioxide Level 13L, Anion Gap 26H, Blood Urea Nitrogen 116#H, Creatinine 7.7H, Estimat Glomerular Filtration Rate , Glucose Level 204H, Plasma/Serum Osmolality [Pending], Calcium Level 5.6*L, Phosphorus Level 9.9H, Total Bilirubin 0.4, Aspartate Amino Transf (AST/SGOT) 81H, Alanine Aminotransferase (ALT/SGPT) 18, Alkaline Phosphatase 88, Total Protein 4.3L, Albumin 2.5L, Globulin 1.8, Albumin/Globulin Ratio 1.3, Salicylates Level < 1L, Acetaminophen Level < 10L 09/13/16 04:00: Arterial Blood pH 7.461H, Arterial Blood Partial Pressure CO2 28.7L, Arterial Blood Partial Pressure O2 63.4L, Arterial Blood HCO3 20.0L, Arterial Blood Oxygen Saturation 91.0L, Arterial Blood Base Excess -3.0, Huang Test Positive 09/13/16 04:40: White Blood Count 6.7, Red Blood Count 3.11L, Hemoglobin 9.6L, Hematocrit 29.8L , Mean Corpuscular Volume 96, Mean Corpuscular Hemoglobin 31.0, Mean Corpuscular Hemoglobin Concent 32.4, Red Cell Distribution Width 14.4, Platelet Count 85L, Mean Platelet Volume 8.5, Neutrophils (%) (Auto) , Lymphocytes (%) ( Auto) , Monocytes (%) (Auto) , Eosinophils (%) (Auto) , Basophils (%) (Auto) , Differential Total Cells Counted 100, Neutrophils % (Manual) 66, Lymphocytes % ( Manual) 16L, Monocytes % (Manual) 12H, Eosinophils % (Manual) 1, Basophils % ( Manual) 0, Band Neutrophils 5, Platelet Estimate DecreasedL, Platelet Morphology Normal, Hypochromasia 1+, Anisocytosis 1+, Sodium Level 152H, Potassium Level 4.7, Chloride Level 111H, Carbon Dioxide Level 13L, Anion Gap 28H, Blood Urea Nitrogen 122H, Creatinine 8.2H, Estimat Glomerular Filtration Rate , Glucose Level 153H, Calcium Level 5.4*L, Phosphorus Level 10.1H, Total Bilirubin 0.4, Aspartate Amino Transf (AST/SGOT) 61H, Alanine Aminotransferase ( ALT/SGPT) 17, Alkaline Phosphatase 92, Total Protein 4.5L, Albumin 2.4L, Globulin 2.1, Albumin/Globulin Ratio 1.1, Lactic Acid Level 1.10, Uric Acid 7.2 , Magnesium Level 1.5L, Troponin I 13.54*H, C-Reactive Protein, Quantitative 4.7H, Pro-B-Type Natriuretic Peptide [id number] 09/13/16 08:45: Prothrombin Time 13.1H, Prothromb Time International Ratio 1.3H, Activated Partial Thromboplast Time 37H 09/13/16 10:15: Hepatitis B Surface Antigen [Pending], Hepatitis B Surface Antibody, Quant [ Pending], Hepatitis C Antibody [Pending] 09/13/16 14:00: Total Creatine Kinase 476H, Troponin I 14.81*H Height (Feet): 5 Height (Inches): 6.00 Weight (Pounds): 142 Objective General: more awake, alert Head: normocephalic, without obvious abnormality, atraumatic Eyes: conjunctivae/corneas clear. PERRL, EOM's intact Throat: lips, mucosa, and tongue normal. MMM Neck: supple, symmetrical, trachea midline, and no JVD Lungs: clear to auscultation bilaterally Heart: regular rate and rhythm, S1, S2 normal, no murmur, click, rub or gallop Abdomen: soft, non-tender, non-distended, bowel sounds normal; no masses or organomegaly Extremities: extremities normal, atraumatic, no cyanosis or edema Pulses: 2+ and symmetric Skin: skin color, texture, turgor normal; no rashes or lesions Neurologic: no focal deficits Rubia Ma M.D. Sep 13, 2016 15:24
[2016-09-13] MEDS ORDERED: Sodium Bicarbonate 8.4% 50ml Inj IV ONE (15:30)
[2016-09-13] MEDS ORDERED: Miralax 17gm pkt ORAL PRN (16:30)
[2016-09-13] MEDS ORDERED: DuoNeb 0.5-3(2.5)mg/3ml neb HHN PRN (16:30)
[2016-09-13] MEDS ORDERED: Heparin 2000 units/Ns 1000ml INJ ONE (17:00)
[2016-09-13] MEDS ORDERED: Lidocaine 1% Plain 30 ml INJ ONE (17:00)
--- NOTE | 2016-09-13 18:32 | Cardiology Progress Note ---
Assessment/Plan Assessment/Plan toxic metabolic encephalopathy cad hs o lad stent KS acute vs sub acute pulmonary htn mr / tr icm may be new (2014 ischemia eval ef 53% no fixed or reversible defect then anemai thrombocytopenia sever met acidosis sss s/p ppi demential s/p small bowel surgery at [facility] 04/2016 esrd now on hd was stage 3 before severe metabolic acidosis paf hx ekg uningterpretabel as paced echo noted s/p dialysis at theim time she is nto a candidate for invasive therapy watch plt adn follow trop unitl star to down trend echo te be revewied need asa bb statin and ntp once able to be given by ngt or orally neuro eval noted [id number] Subjective Subjective Past Medical History: Patient has a past medical history of Diabetes; 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 Past Surgical History: Patient has past surgical history that includes gastric bypass; hysterectomy; coronary stent placement; pacemaker placement; and PCI/ PTCA Procedure Performed Objective Last 24 Hour Vital Signs Date Time Temp Pulse Resp B/P Pulse Ox O2 Delivery O2 Flow Rate FiO2 09/13/16 16:00 97.9 62 20 147/50 97 Room Air 09/13/16 14:00 65 16 151/51 96 Nasal Cannula 2.0 09/13/16 13:00 63 15 146/61 95 Nasal Cannula 2.0 09/13/16 12:00 65 09/13/16 12:00 98.2 64 17 135/35 98 Nasal Cannula 2.0 09/13/16 11:00 67 17 155/50 97 Room Air 2.0 09/13/16 10:00 66 14 142/41 97 Room Air 2.0 09/13/16 09:09 Nasal Cannula 2.0 09/13/16 09:08 98.4 64 19 163/60 98 Nasal Cannula 2.0 09/13/16 09:00 68 17 163/60 96 Nasal Cannula 2.0 09/13/16 08:00 63 09/13/16 08:00 68 17 161/41 95 Nasal Cannula 2.0 09/13/16 07:00 64 17 150/60 96 Nasal Cannula 2.0 09/13/16 06:00 63 17 175/49 96 Nasal Cannula 2.0 09/13/16 05:40 98.4 66 16 143/58 96 Nasal Cannula 2.0 09/13/16 05:40 Nasal Cannula 2.0 09/13/16 05:00 64 15 132/38 95 Nasal Cannula 2.0 09/13/16 04:00 66 09/13/16 04:00 66 20 160/103 94 Nasal Cannula 2.0 09/13/16 03:00 62 12 112/40 96 Nasal Cannula 2.0 09/13/16 02:00 64 18 129/35 97 Nasal Cannula 2.0 09/13/16 01:00 64 17 137/49 99 Nasal Cannula 2.0 09/13/16 00:00 63 09/13/16 00:00 97.4 63 17 132/47 98 Nasal Cannula 2.0 09/12/16 23:00 66 18 134/43 97 Nasal Cannula 2.0 09/12/16 22:00 63 18 137/38 99 Nasal Cannula 2.0 09/12/16 21:00 63 18 137/39 99 Nasal Cannula 2.0 09/12/16 20:00 97.8 65 17 137/73 98 Nasal Cannula 2.0 09/12/16 20:00 65 09/12/16 19:21 Nasal Cannula 2.0 28 09/12/16 19:20 97 Nasal Cannula 2.0 28 Intake and Output 09/12/16 09/13/16 19:00 07:00 Intake Total 747.5 ml 915 ml Output Total 100 ml 120 ml Balance 647.5 ml 795 ml IV Total 737.5 ml 825 ml Other 10 ml 90 ml Output Urine Total 100 ml 120 ml Hemodialysis UF 0 ml # Bowel Movements 5 Laboratory Tests Test 09/12/16 20:00 09/13/16 04:00 09/13/16 04:40 09/13/16 08:45 White Blood Count 6.0 K/UL (4.8-10.8) 6.7 K/UL (4.8-10.8) Red Blood Count 2.94 M/UL (4.20-5.40) L 3.11 M/UL (4.20-5.40) L Hemoglobin 9.0 G/DL (12.0-16.0) L 9.6 G/DL (12.0-16.0) L Hematocrit 28.6 % (37.0-47.0) L 29.8 % (37.0-47.0) L Mean Corpuscular Volume 97 FL (80-99) 96 FL (80-99) Mean Corpuscular Hemoglobin 30.5 PG (27.0-31.0) 31.0 PG (27.0-31.0) Mean Corpuscular Hemoglobin Concent 31.3 G/DL (32.0-36.0) L 32.4 G/DL (32.0-36.0) Red Cell Distribution Width 14.3 % (11.6-14.8) 14.4 % (11.6-14.8) Platelet Count 74 K/UL (150-450) #L 85 K/UL (150-450) L Mean Platelet Volume 7.9 FL (6.5-10.1) 8.5 FL (6.5-10.1) Neutrophils (%) (Auto) % (45.0-75.0) % (45.0-75.0) Lymphocytes (%) (Auto) % (20.0-45.0) % (20.0-45.0) Monocytes (%) (Auto) % (1.0-10.0) % (1.0-10.0) Eosinophils (%) (Auto) % (0.0-3.0) % (0.0-3.0) Basophils (%) (Auto) % (0.0-2.0) % (0.0-2.0) Differential Total Cells Counted 100 100 Neutrophils % (Manual) 64 % (45-75) 66 % (45-75) Lymphocytes % (Manual) 8 % (20-45) L 16 % (20-45) L Monocytes % (Manual) 11 % (1-10) H 12 % (1-10) H Eosinophils % (Manual) 0 % (0-3) 1 % (0-3) Basophils % (Manual) 0 % (0-2) 0 % (0-2) Band Neutrophils 17 % (0-8) H 5 % (0-8) Platelet Estimate Decreased L Decreased L Platelet Morphology Normal Normal Polychromasia 1+ Hypochromasia 1+ 1+ Anisocytosis 1+ 1+ Macrocytosis 1+ Sodium Level 150 mEQ/L (135-145) H 152 mEQ/L (135-145) H Potassium Level 4.7 mEQ/L (3.4-4.9) 4.7 mEQ/L (3.4-4.9) Chloride Level 111 mEQ/L (98-107) H 111 mEQ/L (98-107) H Carbon Dioxide Level 13 mEQ/L (20-30) L 13 mEQ/L (20-30) L Anion Gap 26 (5-15) H 28 (5-15) H Blood Urea Nitrogen 116 mg/dL (7-23) #H 122 mg/dL (7-23) H Creatinine 7.7 mg/dL (0.5-0.9) H 8.2 mg/dL (0.5-0.9) H Estimat Glomerular Filtration Rate mL/min (>60) mL/min (>60) Glucose Level 204 mg/dL (74-106) H 153 mg/dL (74-106) H Plasma/Serum Osmolality Pending Calcium Level 5.6 mg/dL (8.6-10.2) *L 5.4 mg/dL (8.6-10.2) *L Phosphorus Level 9.9 mg/dL (2.5-4.8) H 10.1 mg/dL (2.5-4.8) H Total Bilirubin 0.4 mg/dL (0.0-1.2) 0.4 mg/dL (0.0-1.2) Aspartate Amino Transf (AST/SGOT) 81 U/L (5-40) H 61 U/L (5-40) H Alanine Aminotransferase (ALT/SGPT) 18 U/L (3-33) 17 U/L (3-33) Alkaline Phosphatase 88 U/L (35-104) 92 U/L (35-104) Total Protein 4.3 g/dL (6.6-8.7) L 4.5 g/dL (6.6-8.7) L Albumin 2.5 g/dL (3.5-5.2) L 2.4 g/dL (3.5-5.2) L Globulin 1.8 g/dL 2.1 g/dL Albumin/Globulin Ratio 1.3 (1.0-2.7) 1.1 (1.0-2.7) Salicylates Level < 1 mg/dL (10-30) L Acetaminophen Level < 10 ug/mL (10-30) L Arterial Blood pH 7.461 (7.350-7.450) Arterial Blood Partial Pressure CO2 28.7 mmHg (35.0-45.0) L Arterial Blood Partial Pressure O2 63.4 mmHg (75.0-100.0) L Arterial Blood HCO3 20.0 mmol/L (22.0-26.0) L Arterial Blood Oxygen Saturation 91.0 % (92.0-98.0) L Arterial Blood Base Excess -3.0 Huang Test Positive Lactic Acid Level 1.10 mmol/L (0.66-2.22) Uric Acid 7.2 mg/dL (3.0-7.5) Magnesium Level 1.5 mg/dL (1.7-2.5) L Troponin I 13.54 ng/mL (<=0.30) *H C-Reactive Protein, Quantitative 4.7 mg/dL (< 0.5) H Pro-B-Type Natriuretic Peptide 04506 pg/mL (0-450) H Prothrombin Time 13.1 SEC (9.30-11.50) H Prothromb Time International Ratio 1.3 (0.9-1.1) H Activated Partial Thromboplast Time 37 SEC (23-33) H Test 09/13/16 10:15 09/13/16 14:00 Hepatitis B Surface Antigen Pending Hepatitis B Surface Antibody, Quant Pending Hepatitis C Antibody Pending Total Creatine Kinase 476 U/L (26-140) H Troponin I 14.81 ng/mL (<=0.30) *H Microbiology Date/Time Source Procedure Growth Status 09/11/16 16:25 Blood Blood Culture - Preliminary NO GROWTH AFTER 24 HOURS Resulted 09/11/16 16:10 Blood Blood Culture - Preliminary NO GROWTH AFTER 24 HOURS Resulted 09/11/16 18:00 Urine,Clean Catch Urine Culture - Preliminary NO GROWTH AFTER 24 HOURS Resulted JERMAINE ROMANO Sep 13, 2016 18:32
[2016-09-13] MEDS ORDERED: Atenolol 25mg tab GT ONE (18:45)
[2016-09-13 23:11] LABS: TROPONIN I 11.39 ng/mL (<=0.30)
[2016-09-14] VITALS (8 sets, daily range): BP systolic 112–181; BP diastolic 46–73
--- NOTE | 2016-09-14 00:28 | Consultation ---
DATE OF CONSULTATION: CARDIAC CONSULTATION CONSULTING PHYSICIAN: Dr. Marques HISTORY OF PRESENT ILLNESS: Abnormal cardiac enzymes. This is an elderly female who is really unable to provide any meaningful history whatsoever. Her story is that the patient had not been seen by neighbors and eventually it was thought she was noted to be covered at home. She was found on the floor. Duration of that is unknown. The patient was transferred to the Emergency Room at [facility] and was admitted to the hospital, course of event checking abnormal cardiac enzymes with the results of significant elevation at 14:15 with subsequently this consultation was obtained. The patient really is unable to provide any meaningful history whatsoever at this time. No further information is available about her fall. PAST MEDICAL HISTORY: According to recent study evaluation at [facility] is one that she has had a history of exploratory laparotomy, status post lysis of adhesions, small bowel resection, side by side anastomosis in February of 2015 for small bowel obstruction. She has Pito-en-Y gastric bypass surgery. She had an ostomy by anastomotic bleeding with two years. She has had diabetes mellitus, coronary artery disease, the details of which are unknown, hypertension, chronic kidney disease, ischemic cardiomyopathy, Alzheimer's dementia, anemia, sick sinus syndrome, status post permanent pacemaker implantation with a history of paroxysmal episodes of atrial fibrillation, malignant hypertension, previously stage III, and protein calorie malnutrition, acute on chronic respiratory failure, hypernatremia, osteoarthritis, congestive heart failure, and gastrointestinal bleeding. She has had history of stents placed. She has not had any allergies to medications as far as I can tell. The patient has previously had an ejection fraction of 65% in 2014, but 43% back in 2011. Her last CT scan evaluation was in 2014 that showed no reversible defects and no fixed defects. She has had a history of LAD stent in 2011. SOCIAL HISTORY: She was born in [place]. She is retired. She is and history of significant tobacco history continues apparently smoke until recently. PHYSICAL EXAMINATION: GENERAL: Sows be elderly female who responds to painful stimuli only not communicated G-tube is in place. Dialysis catheter is in place. NECK: Supple. LUNGS: Appear to be clear to auscultation percussion at the present time. CARDIAC: Examination S1 is normal. S2 is normal. Regular rate and rhythm. No RV lift, heaves, or thrills noted. ABDOMEN: Soft and nontender. Positive bowel sounds. EXTREMITIES: There is no clubbing, cyanosis, or edema. NEUROLOGIC: Arousable. LABORATORY DATA: Chest x-ray shows subclavian central venous catheter in the right middle neck, terminating it into the jugular vein. No definite pneumothorax is seen. She is basically sinus rhythm with AV pacing including the EKG that was performed apparently by the paramedics. An echocardiogram has been performed that shows at this time. Ejection fraction of 35% to 40%. She has a global hypokinesis with listed as noted. There is severe mitral regurgitation, moderate tricuspid regurgitation, pulmonary hypertension, and dilated IVC. Today, sodium 152, potassium 4.7, chloride 111, bicarbonate of 13, BUN of 122, creatinine 8.2, and glucose of 153 with calcium of 5.4 with albumin of 2.4. Troponin at the time of initial presentation was less than 0.3. Subsequently, the next day was 1.87 and subsequently 13.4, and still climbing at 14.8 is the last one. Her coagulations - INR 1.3 and a PTT of 37. Her white count was 12.4 at time of admission to 6.7, hemoglobin was 13.6, now down to 9.6, and platelet count was 162 now down to 85,000, 17% banded neutrophils was noted at the time of the initial evaluation yesterday. Urinalysis is fairly unremarkable. Toxicology screen positive for opiates and barbiturates. ASSESSMENT AND PLAN: 1. Following toxic metabolic encephalopathy. 2. Coronary artery disease. 3. History of LAD stent. 4. Myocardial infarction, acute versus subacute. 5. Pulmonary hypertension. 6. Mitral regurgitation/tricuspid regurgitation. 7. Ischemic cardiomyopathy may be new since 2015, at which time the ejection fraction is 53% without any fixed or reversible defect at that time. 8. Thrombocytopenia. 9. Profound metabolic acidosis. 10. Sick sinus syndrome, status post permanent pacemaker implantation. 11. Advanced dementia. 12. Status post small bowel surgery at [facility]. 13. End-stage renal disease on hemodialysis was stage IIIB. 14. Severe metabolic acidosis. 15. History of proximal episodes of atrial fibrillation. PLAN: the patient was seen in cardiac consultation. The patient's EKG is uninterpretable as paced. Echocardiogram noted, but we will await final review. Status post dialysis remains relatively acidotic still. At this time, she is not a candidate for invasive cardiac therapy because of her altered mentation and electrolyte abnormalities as well as history of renal issues and thrombocytopenia. We will follow the trend of the troponins until down trend is noted an echocardiogram to be reviewed, and aspirin, beta tj, statin, nitroglycerin paste, once able to peak being given through any feeding per ER physician. Neurology evaluation is noted. Levi Cruz M.D. DR: KATIE JOB#: [id number] CC:
[2016-09-14] MEDS: Aluminum Hydroxide Gel Susp 15ml NG SCH ×8 (03:19→21:08)
[2016-09-14] MEDS: Renvela 800mg Pkt ORAL SCH ×4 (05:59→18:45)
[2016-09-14] MEDS ORDERED: Lidocaine 1% Plain 30 ml INJ ONE (06:00)
[2016-09-14] MEDS ORDERED: Heparin 2000 units/Ns 1000ml INJ ONE (06:00)
[2016-09-14] MEDS: NovoLOG Insulin Flexpen SUBQ SCH ×4 (06:01→18:48)
[2016-09-14] MEDS: Heparin 5000 units/ml inj SUBQ SCH ×2 (09:00→20:52)
[2016-09-14] MEDS: Aspirin Baby 81mg GT SCH (09:20)
[2016-09-14] MEDS: Pantoprazole Inj IVP SCH ×2 (09:21→21:09)
[2016-09-14] MEDS ORDERED: Tubing IV Secondary IV ONE (10:44)
[2016-09-14] MEDS ORDERED: 1/2 NS 1000ml IV ONE (10:44)
[2016-09-14 13:07] LABS: MEAN CORPUSCULAR HEMOGLOBIN 30.7 PG (27.0-31.0); MEAN CORPUSCULAR HGB CONC 31.8 G/DL (32.0-36.0); MEAN CORPUSCULAR VOLUME 96 FL (80-99); MEAN PLATELET VOLUME 9.9 FL (6.5-10.1); PLATELET COUNT 49 K/UL (150-450); RED BLOOD COUNT 3.17 M/UL (4.20-5.40); RED CELL DISTRIBUTION WIDTH 14.8 % (11.6-14.8); WHITE BLOOD COUNT 9.6 K/UL (4.8-10.8)
--- NOTE | 2016-09-14 13:40 | General Progress Note ---
Assessment/Plan Problem List: (1) NSTEMI (non-ST elevated myocardial infarction) ICD Codes: I21.4 - Non-ST elevation (NSTEMI) myocardial infarction SNOMED: 04959502 (2) Acute systolic heart failure Assessment & Plan: EF 35-40% ICD Codes: I50.21 - Acute systolic (congestive) heart failure SNOMED: 191338399 (3) Toxic metabolic encephalopathy ICD Codes: G92 - Toxic encephalopathy SNOMED: 304101706 (4) JENNIFER (acute kidney injury) ICD Codes: N17.9 - Acute kidney failure, unspecified SNOMED: 62386502 (5) Hyperkalemia ICD Codes: E87.5 - Hyperkalemia SNOMED: 41947203 (6) High anion gap metabolic acidosis ICD Codes: E87.2 - Acidosis SNOMED: 40005531 (7) Pacemaker ICD Codes: Z95.0 - Presence of cardiac pacemaker SNOMED: 929928167, 325789279 (8) Diabetes mellitus ICD Codes: E11.9 - Type 2 diabetes mellitus without complications SNOMED: 92768862 Status: stable Assessment/Plan Utox positive for opioids and barbiturates which may be likely culprits of encephalopathy. Unclear if pt had overdosed and whether it is intentional or accidental Etiology of JENNIFER may be pre-renal 2/2 dehydration (found down x 2 days vs cardiorenal (given new found cardiomgyopathy and elevated BNP), component of rhabdomylosis, and/or ATN Pt also with NSTEMI, EF 35-50%--acute vs subacute. Has h/o CAD w/ stent to LAD Appreciate pulm/critical care, nephrology, neurology, cardiology rec's s/p temporary HD line placement on 09/12/16 HD initiated on 09/12/16; cont HD per renal--pt currently declining HD. Unclear if pt has capacity as she is not able to articulate clearly the reasons for refusing. Trend lytes and Cr Avoid nephrotoxic agents Plan for medical mgmt of NSTEMI a pt not a candidate for invasive therapy per cardiology Cont ASA, statin, coreg. No MELO-I/ARB given renal failure RALF DVT Prophylaxis: SCD, HSQ Code Status: Full Hospital Classification Declaration: Based on this initial evaluation, and depending on the patient's clinical course, I anticipate that this patient will require hospitalization for 3-4 days for JENNIFER, severe metabolic acidosis, NSTEMI , and close respiratory/hemodynamic monitoring. Disposition: Once the patient is stable to leave the hospital, I anticipate the patient will likely be discharged to the following environment: home with HH vs SNF I spent 40 minutes on this patient's case, and 22 minutes were dedicated to counseling and/or care coordination. Discussed with patient/family, nursing staff, SW/CM, pulm, cardiology, nephrology regarding clinical status, treatment course, and disposition planning. Time of note may not reflect time of encounter. Subjective Date patient seen: Sep 14, 2016 Time patient seen: 13:40 ROS Limited/Unobtainable: Yes Constitutional: Reports: no symptoms HEENT: Reports: no symptoms Cardiovascular: Reports: no symptoms Respiratory: Reports: no symptoms Gastrointestinal/Abdominal: Reports: no symptoms Genitourinary: Reports: no symptoms Neurologic/Psychiatric: Reports: no symptoms Endocrine: Reports: no symptoms Hematologic/Lymphatic: Reports: no symptoms Allergies: Coded Allergies: NO KNOWN ALLERGIES (Verified Allergy, Unknown, 09/12/16) All Systems: reviewed and negative except above Subjective More awake, alert. Able to state name of hospital. Does not recall events clearly Declining HD Objective Last 24 Hour Vital Signs Date Time Temp Pulse Resp B/P Pulse Ox O2 Delivery O2 Flow Rate FiO2 09/14/16 12:00 96.6 68 17 145/71 98 Nasal Cannula 2.0 09/14/16 12:00 65 09/14/16 08:00 101.7 69 17 155/46 99 Nasal Cannula 2.0 09/14/16 08:00 69 09/14/16 07:04 62 16 Nasal Cannula 2.0 09/14/16 07:04 Nasal Cannula 2.0 09/14/16 07:04 99 Nasal Cannula 2.0 09/14/16 06:40 63 09/14/16 04:00 97.1 60 20 156/58 98 Room Air 09/14/16 00:00 66 09/14/16 00:00 98.4 64 18 157/60 98 Nasal Cannula 2.0 09/13/16 20:00 97.9 64 22 141/68 98 Nasal Cannula 2.0 09/13/16 20:00 64 09/13/16 18:55 62 147/50 09/13/16 18:23 Nasal Cannula 2.0 28 09/13/16 18:23 98 Nasal Cannula 2.0 28 09/13/16 16:00 97.9 62 20 147/50 97 Room Air 09/13/16 16:00 65 09/13/16 14:00 65 16 151/51 96 Nasal Cannula 2.0 Intake and Output 09/13/16 09/14/16 19:00 07:00 Intake Total 250 ml 230 ml Output Total 170 ml 700 ml Balance 80 ml -470 ml Free Water 100 ml 100 ml Tube Feeding 90 ml 130 ml Other 60 ml Output Urine Total 170 ml 700 ml Hemodialysis UF 0 ml # Bowel Movements 4 Laboratory Tests 09/13/16 14:00: Total Creatine Kinase 476H, Troponin I 14.81*H 09/13/16 22:30: Total Creatine Kinase 351H, Troponin I 11.39*H 09/14/16 12:25: Total Creatine Kinase 247H, Troponin I 6.60*H, White Blood Count 9.6, Red Blood Count 3.17L, Hemoglobin 9.7L, Hematocrit 30.6L, Mean Corpuscular Volume 96, Mean Corpuscular Hemoglobin 30.7, Mean Corpuscular Hemoglobin Concent 31.8L, Red Cell Distribution Width 14.8, Platelet Count 49L, Mean Platelet Volume 9.9, Neutrophils (%) (Auto) , Lymphocytes (%) (Auto) , Monocytes (%) (Auto) , Eosinophils (%) (Auto) , Basophils (%) (Auto) , Neutrophils % (Manual) [Pending] , Lymphocytes % (Manual) [Pending], Platelet Estimate [Pending], Platelet Morphology [Pending], Sodium Level [Pending], Potassium Level [Pending], Chloride Level [Pending], Carbon Dioxide Level [Pending], Blood Urea Nitrogen [ Pending], Creatinine [Pending], Estimat Glomerular Filtration Rate [Pending], Glucose Level [Pending], Uric Acid [Pending], Calcium Level [Pending], Phosphorus Level [Pending], Total Bilirubin [Pending], Aspartate Amino Transf ( AST/SGOT) [Pending], Alanine Aminotransferase (ALT/SGPT) [Pending], Alkaline Phosphatase [Pending], C-Reactive Protein, Quantitative [Pending], Pro-B-Type Natriuretic Peptide [Pending], Total Protein [Pending], Albumin [Pending], Globulin [Pending] Height (Feet): 5 Height (Inches): 6.00 Weight (Pounds): 142 Objective General: awake, alert Head: normocephalic, without obvious abnormality, atraumatic Eyes: conjunctivae/corneas clear. PERRL, EOM's intact Throat: lips, mucosa, and tongue normal. MMM Neck: supple, symmetrical, trachea midline, and no JVD Lungs: clear to auscultation bilaterally Heart: regular rate and rhythm, S1, S2 normal, no murmur, click, rub or gallop Abdomen: soft, non-tender, non-distended, bowel sounds normal; no masses or organomegaly Extremities: extremities normal, atraumatic, no cyanosis or edema Pulses: 2+ and symmetric Skin: skin color, texture, turgor normal; no rashes or lesions Neurologic: no focal deficits Rubia Ma M.D. Sep 14, 2016 13:40
--- NOTE | 2016-09-14 14:01 | General Progress Note ---
Assessment/Plan Status: doing well - - more responsive Assessment/Plan Altered level of consciousness Dehydration JENNIFER (acute kidney injury) Severe Hyperkalemia Possible Rhabdomyolysis Pace Maker Plan: todays labs pending Phos binders to treat high Phos and low Calcium IV protonix start Nephro NGT feeding Monitor renal parameters HD today Subjective ROS Limited/Unobtainable: No Constitutional: Reports: malaise, other - more responsive, weakness Allergies: Coded Allergies: NO KNOWN ALLERGIES (Verified Allergy, Unknown, 09/12/16) Objective Last 24 Hour Vital Signs Date Time Temp Pulse Resp B/P Pulse Ox O2 Delivery O2 Flow Rate FiO2 09/14/16 12:00 96.6 68 17 145/71 98 Nasal Cannula 2.0 09/14/16 12:00 65 09/14/16 08:00 101.7 69 17 155/46 99 Nasal Cannula 2.0 09/14/16 08:00 69 09/14/16 07:04 62 16 Nasal Cannula 2.0 09/14/16 07:04 Nasal Cannula 2.0 09/14/16 07:04 99 Nasal Cannula 2.0 09/14/16 06:40 63 09/14/16 04:00 97.1 60 20 156/58 98 Room Air 09/14/16 00:00 66 09/14/16 00:00 98.4 64 18 157/60 98 Nasal Cannula 2.0 09/13/16 20:00 97.9 64 22 141/68 98 Nasal Cannula 2.0 09/13/16 20:00 64 09/13/16 18:55 62 147/50 09/13/16 18:23 Nasal Cannula 2.0 28 09/13/16 18:23 98 Nasal Cannula 2.0 28 09/13/16 16:00 97.9 62 20 147/50 97 Room Air 09/13/16 16:00 65 Intake and Output 09/13/16 09/14/16 19:00 07:00 Intake Total 250 ml 230 ml Output Total 170 ml 700 ml Balance 80 ml -470 ml Free Water 100 ml 100 ml Tube Feeding 90 ml 130 ml Other 60 ml Output Urine Total 170 ml 700 ml Hemodialysis UF 0 ml # Bowel Movements 4 Laboratory Tests 09/13/16 22:30: Total Creatine Kinase 351H, Troponin I 11.39*H 09/14/16 12:25: Total Creatine Kinase 247H, Troponin I 6.60*H, White Blood Count 9.6, Red Blood Count 3.17L, Hemoglobin 9.7L, Hematocrit 30.6L, Mean Corpuscular Volume 96, Mean Corpuscular Hemoglobin 30.7, Mean Corpuscular Hemoglobin Concent 31.8L, Red Cell Distribution Width 14.8, Platelet Count 49L, Mean Platelet Volume 9.9, Neutrophils (%) (Auto) , Lymphocytes (%) (Auto) , Monocytes (%) (Auto) , Eosinophils (%) (Auto) , Basophils (%) (Auto) , Neutrophils % (Manual) [Pending] , Lymphocytes % (Manual) [Pending], Platelet Estimate [Pending], Platelet Morphology [Pending], Sodium Level [Pending], Potassium Level [Pending], Chloride Level [Pending], Carbon Dioxide Level [Pending], Blood Urea Nitrogen [ Pending], Creatinine [Pending], Estimat Glomerular Filtration Rate [Pending], Glucose Level [Pending], Uric Acid [Pending], Calcium Level [Pending], Phosphorus Level [Pending], Total Bilirubin [Pending], Aspartate Amino Transf ( AST/SGOT) [Pending], Alanine Aminotransferase (ALT/SGPT) [Pending], Alkaline Phosphatase [Pending], C-Reactive Protein, Quantitative [Pending], Pro-B-Type Natriuretic Peptide [Pending], Total Protein [Pending], Albumin [Pending], Globulin [Pending] Height (Feet): 5 Height (Inches): 6.00 Weight (Pounds): 142 General Appearance: agitated Cardiovascular: normal rate Respiratory/Chest: decreased breath sounds Abdomen: soft Objective other PE not changed RICKI SALGADO Sep 14, 2016 14:01
[2016-09-14 14:17] LABS: ANION GAP 24 (5-15); BAND NEUTROPHILS % (MANUAL) 7 % (0-8); BASOPHILS % (MANUAL) 0 % (0-2); CARBON DIOXIDE 20 mEQ/L (20-30); CHLORIDE 98 mEQ/L (98-107); EOSINOPHILS % (MANUAL) 1 % (0-3); LYMPHOCYTES % (MANUAL) 28 % (20-45); NEUTROPHILS % (MANUAL) 62 % (45-75); PLATELET ESTIMATE DECREASED; PLATELET MORPHOLOGY NORMAL; POTASSIUM 3.9 mEQ/L (3.4-4.9); SODIUM 142 mEQ/L (135-145); TOTAL CELLS COUNTED 100
[2016-09-14 14:18] LABS: ANISOCYTOSIS 1+; ASPARTATE AMINO TRANSFERASE 29 U/L (5-40); CREATININE 6.4 mg/dL (0.5-0.9); HYPOCHROMASIA 1+; MACROCYTES 1+; PHOSPHORUS 6.5 MG/DL (2.5-4.9)
[2016-09-14 14:19] LABS: ALANINE AMINOTRANSFERASE 16 U/L (3-33); ALBUMIN/GLOBULIN RATIO 1.5 (1.0-2.7); CRP QUANT 6.3 mg/dL (< 0.5); TOTAL PROTEIN 4.5 g/dL (6.6-8.7)
--- NOTE | 2016-09-14 14:19 | Pulmonology Progress Note ---
Assessment/Plan Assessment/Plan ASSESSMENT NSTEMI acute toxic metabolic encephalopathy pacemaker DM JENNIFER 2 to dehydration vs drug OD hyperkalemia hypocalcemia and hyperphosphatemia severe metabolic acidosis anemia of chronic disease PLAN OF CARE tele cardio follows not a candidate for invasive therapy at this time on ASA, BB, statin, Nitrosate ECHO with EF 35-40% and RVSP of 77 c/w severe pulmonary HTN , sever MR and moderate TR urine toxic screen + opiates , barbiturates ? accidental vs intentional s/p IVF , no improvement started on HD nephro follows had 2 HD, declining today, still altered O2 HHN prn BS management with SS of insulin NGT with TF aspiration precautions DVT, GI prophylaxis on Renvela as per nephro (phosphate binding agent) , monitor Ca and P HH at baseline, monitor case discussed and evaluated by supervising physician Subjective Allergies: Coded Allergies: NO KNOWN ALLERGIES (Verified Allergy, Unknown, 09/12/16) Subjective declining HD today, had two before afebrile, no leucocytosis no signs of respiratory distress on O2 via NC Objective Last 24 Hour Vital Signs Date Time Temp Pulse Resp B/P Pulse Ox O2 Delivery O2 Flow Rate FiO2 09/14/16 12:00 96.6 68 17 145/71 98 Nasal Cannula 2.0 09/14/16 12:00 65 09/14/16 08:00 101.7 69 17 155/46 99 Nasal Cannula 2.0 09/14/16 08:00 69 09/14/16 07:04 62 16 Nasal Cannula 2.0 09/14/16 07:04 Nasal Cannula 2.0 09/14/16 07:04 99 Nasal Cannula 2.0 09/14/16 06:40 63 09/14/16 04:00 97.1 60 20 156/58 98 Room Air 09/14/16 00:00 66 09/14/16 00:00 98.4 64 18 157/60 98 Nasal Cannula 2.0 09/13/16 20:00 97.9 64 22 141/68 98 Nasal Cannula 2.0 09/13/16 20:00 64 09/13/16 18:55 62 147/50 09/13/16 18:23 Nasal Cannula 2.0 28 09/13/16 18:23 98 Nasal Cannula 2.0 28 09/13/16 16:00 97.9 62 20 147/50 97 Room Air 09/13/16 16:00 65 Intake and Output 09/13/16 09/14/16 19:00 07:00 Intake Total 250 ml 230 ml Output Total 170 ml 700 ml Balance 80 ml -470 ml Free Water 100 ml 100 ml Tube Feeding 90 ml 130 ml Other 60 ml Output Urine Total 170 ml 700 ml Hemodialysis UF 0 ml # Bowel Movements 4 General Appearance: no acute distress, other - awake, alert, confused [place] speaking female HEENT: normocephalic, atraumatic Respiratory/Chest: lungs clear - with mdoerate airt entry , other - R subclavian HD catheter Cardiovascular: normal rate, regular rhythm - pacing Abdomen: normal bowel sounds, soft, non tender, non distended Genitourinary: normal external genitalia Extremities: other - tarce edema BLE Neurologic/Psychiatric: no motor/sensory deficits, alert, responsive Musculoskeletal: normal muscle bulk Microbiology Date/Time Source Procedure Growth Status 09/11/16 16:25 Blood Blood Culture - Preliminary NO GROWTH AFTER 48 HOURS Resulted 09/11/16 16:10 Blood Blood Culture - Preliminary NO GROWTH AFTER 48 HOURS Resulted 09/11/16 20:45 Nasal Nares MRSA Culture - Final NO METHICILLIN RESISTANT STAPH AUREUS... Complete 09/11/16 18:00 Urine,Clean Catch Urine Culture - Final NO GROWTH AFTER 48 HOURS Complete 09/11/16 20:45 Rectum VRE Culture - Final NO VANCOMYCIN RESISTANT ENTEROCOCCUS ... Complete Laboratory Tests 09/13/16 22:30: Total Creatine Kinase 351H, Troponin I 11.39*H 09/14/16 12:25: Total Creatine Kinase 247H, Troponin I 6.60*H, White Blood Count 9.6, Red Blood Count 3.17L, Hemoglobin 9.7L, Hematocrit 30.6L, Mean Corpuscular Volume 96, Mean Corpuscular Hemoglobin 30.7, Mean Corpuscular Hemoglobin Concent 31.8L, Red Cell Distribution Width 14.8, Platelet Count 49L, Mean Platelet Volume 9.9, Neutrophils (%) (Auto) , Lymphocytes (%) (Auto) , Monocytes (%) (Auto) , Eosinophils (%) (Auto) , Basophils (%) (Auto) , Neutrophils % (Manual) [Pending] , Lymphocytes % (Manual) [Pending], Platelet Estimate [Pending], Platelet Morphology [Pending], Sodium Level [Pending], Potassium Level [Pending], Chloride Level [Pending], Carbon Dioxide Level [Pending], Blood Urea Nitrogen [ Pending], Creatinine [Pending], Estimat Glomerular Filtration Rate [Pending], Glucose Level [Pending], Uric Acid [Pending], Calcium Level [Pending], Phosphorus Level [Pending], Total Bilirubin [Pending], Aspartate Amino Transf ( AST/SGOT) [Pending], Alanine Aminotransferase (ALT/SGPT) [Pending], Alkaline Phosphatase [Pending], C-Reactive Protein, Quantitative [Pending], Pro-B-Type Natriuretic Peptide [Pending], Total Protein [Pending], Albumin [Pending], Globulin [Pending] Current Medications Medications (Trade) Dose Ordered Sig/Serafin Route PRN Reason Start Time Stop Time Status Last Admin Dose Admin Acetaminophen (Tylenol) 650 mg Q4H PRN ORAL Fever 09/13/16 16:30 10/13/16 16:29 Acetaminophen (Tylenol) 650 mg Q4H PRN ORAL Mild Pain (Pain Scale 1-3) 09/13/16 16:30 10/13/16 16:29 Albuterol/ Ipratropium (DuoNeb 0.5-3(2.5)mg/3ml) 3 ml Q4H PRN HHN Shortness of Breath 09/13/16 16:30 09/18/16 16:29 Aluminum Hydroxide (Amphojel) 1,920 mg EVERY 3 HOURS NG 09/13/16 18:00 10/13/16 17:59 09/14/16 12:26 Aspirin (ASA) 81 mg DAILY GT 09/14/16 09:00 10/14/16 08:59 09/14/16 09:20 Dextrose (Dextrose 50%) STAT PRN IV Hypoglycemia 09/13/16 16:00 10/13/16 15:59 Heparin Sodium (Porcine) (Heparin 5000 units/ml) 5,000 units EVERY 12 HOURS SUBQ 09/13/16 21:00 10/13/16 20:59 Insulin Aspart (NovoLOG) Q6HR SUBQ 09/13/16 18:00 10/13/16 17:59 09/14/16 12:27 Ondansetron HCl (Zofran) 4 mg Q6H PRN IVP Nausea & Vomiting 09/13/16 16:30 10/13/16 16:29 Pantoprazole (Protonix) 40 mg EVERY 12 HOURS IVP 09/13/16 21:00 10/13/16 20:59 09/14/16 09:21 Polyethylene Glycol (Miralax) 17 gm DAILYPRN PRN ORAL Constipation 09/13/16 16:30 10/13/16 16:29 Sevelamer Carbonate (Renvela) 1,600 mg Q6HR ORAL 09/13/16 18:00 10/13/16 17:59 09/14/16 12:26 [facility]Nathalie NP Sep 14, 2016 14:19
[2016-09-14] MEDS ORDERED: LORazepam Inj 2mg/ml 1ml IV ONE (14:30)
--- NOTE | 2016-09-14 14:37 | Cardiology Progress Note ---
Assessment/Plan Problem List: (1) Altered level of consciousness (2) Pacemaker (3) Diabetes mellitus (4) NSTEMI (non-ST elevated myocardial infarction) (5) JENNIFER (acute kidney injury) Status: not improved, deteriorating Status Narrative Mrs. Mullen is s/p acute nonSTEMI. Troponin levels are decreasing. EKG on 09/11 not interpretable due to AV paced rhythm, but now appears w/ av conduction on telemetry EF 35-40% by echo this adm, w/ global hypokinesis and severe MR She is in RF, refusing HD - ? competent. Assessment/Plan Will continue asa and start statin, coreg for CAD and ischemic cm. No mark inh/ ARB due to RF Repeat ekg today. Holding HD as pt currently refusing. Subjective ROS Limited/Unobtainable: No Subjective Mrs. Mullen is agitated, refusing dialysis. denies dyspnea, cp Requests transfer to [facility] for second opinion. Objective Last 24 Hour Vital Signs Date Time Temp Pulse Resp B/P Pulse Ox O2 Delivery O2 Flow Rate FiO2 09/14/16 12:00 96.6 68 17 145/71 98 Nasal Cannula 2.0 09/14/16 12:00 65 09/14/16 08:00 101.7 69 17 155/46 99 Nasal Cannula 2.0 09/14/16 08:00 69 09/14/16 07:04 62 16 Nasal Cannula 2.0 09/14/16 07:04 Nasal Cannula 2.0 09/14/16 07:04 99 Nasal Cannula 2.0 09/14/16 06:40 63 09/14/16 04:00 97.1 60 20 156/58 98 Room Air 09/14/16 00:00 66 09/14/16 00:00 98.4 64 18 157/60 98 Nasal Cannula 2.0 09/13/16 20:00 97.9 64 22 141/68 98 Nasal Cannula 2.0 09/13/16 20:00 64 09/13/16 18:55 62 147/50 09/13/16 18:23 Nasal Cannula 2.0 28 09/13/16 18:23 98 Nasal Cannula 2.0 28 09/13/16 16:00 97.9 62 20 147/50 97 Room Air 09/13/16 16:00 65 General Appearance: WD/WN, alert, mild distress EENT: PERRL/EOMI Neck: supple, other - R ij hemodialysis catheter Rhythm: NSR Cardiovascular: normal rate, regular rhythm, no gallop/murmur Respiratory/Chest: lungs clear - clear anteriorly Abdomen: non tender, soft Extremities: no swelling Intake and Output 09/13/16 09/14/16 19:00 07:00 Intake Total 250 ml 230 ml Output Total 170 ml 700 ml Balance 80 ml -470 ml Free Water 100 ml 100 ml Tube Feeding 90 ml 130 ml Other 60 ml Output Urine Total 170 ml 700 ml Hemodialysis UF 0 ml # Bowel Movements 4 Laboratory Tests Test 09/13/16 22:30 09/14/16 12:25 Total Creatine Kinase 351 U/L (26-140) H 247 U/L (26-140) H Troponin I 11.39 ng/mL (<=0.30) *H 6.60 ng/mL (<=0.30) *H White Blood Count 9.6 K/UL (4.8-10.8) Red Blood Count 3.17 M/UL (4.20-5.40) L Hemoglobin 9.7 G/DL (12.0-16.0) L Hematocrit 30.6 % (37.0-47.0) L Mean Corpuscular Volume 96 FL (80-99) Mean Corpuscular Hemoglobin 30.7 PG (27.0-31.0) Mean Corpuscular Hemoglobin Concent 31.8 G/DL (32.0-36.0) L Red Cell Distribution Width 14.8 % (11.6-14.8) Platelet Count 49 K/UL (150-450) L Mean Platelet Volume 9.9 FL (6.5-10.1) Neutrophils (%) (Auto) % (45.0-75.0) Lymphocytes (%) (Auto) % (20.0-45.0) Monocytes (%) (Auto) % (1.0-10.0) Eosinophils (%) (Auto) % (0.0-3.0) Basophils (%) (Auto) % (0.0-2.0) Differential Total Cells Counted 100 Neutrophils % (Manual) 62 % (45-75) Lymphocytes % (Manual) 28 % (20-45) Monocytes % (Manual) 2 % (1-10) Eosinophils % (Manual) 1 % (0-3) Basophils % (Manual) 0 % (0-2) Band Neutrophils 7 % (0-8) Platelet Estimate Decreased L Platelet Morphology Normal Hypochromasia 1+ Anisocytosis 1+ Macrocytosis 1+ Sodium Level Pending Potassium Level Pending Chloride Level Pending Carbon Dioxide Level Pending Blood Urea Nitrogen Pending Creatinine Pending Estimat Glomerular Filtration Rate Pending Glucose Level Pending Uric Acid Pending Calcium Level Pending Phosphorus Level Pending Total Bilirubin Pending Aspartate Amino Transf (AST/SGOT) Pending Alanine Aminotransferase (ALT/SGPT) Pending Alkaline Phosphatase Pending C-Reactive Protein, Quantitative Pending Pro-B-Type Natriuretic Peptide Pending Total Protein Pending Albumin Pending Globulin Pending Microbiology Date/Time Source Procedure Growth Status 09/11/16 16:25 Blood Blood Culture - Preliminary NO GROWTH AFTER 48 HOURS Resulted 09/11/16 16:10 Blood Blood Culture - Preliminary NO GROWTH AFTER 48 HOURS Resulted 09/11/16 20:45 Nasal Nares MRSA Culture - Final NO METHICILLIN RESISTANT STAPH AUREUS... Complete 09/11/16 18:00 Urine,Clean Catch Urine Culture - Final NO GROWTH AFTER 48 HOURS Complete 09/11/16 20:45 Rectum VRE Culture - Final NO VANCOMYCIN RESISTANT ENTEROCOCCUS ... Complete [place] Sep 14, 2016 14:37
[2016-09-14 14:38] LABS: CALCIUM 6.5 mg/dL (8.6-10.2); URIC ACID 5.1 MG/DL (2.6-7.2)
[2016-09-15] VITALS (8 sets, daily range): BP systolic 153–180; BP diastolic 58–68
[2016-09-15] MEDS: Aluminum Hydroxide Gel Susp 15ml NG SCH ×4 (00:19→09:29)
[2016-09-15] MEDS: Renvela 800mg Pkt ORAL SCH ×4 (00:19→17:32)
[2016-09-15] MEDS: NovoLOG Insulin Flexpen SUBQ SCH ×4 (00:20→17:34)
[2016-09-15 07:38] LABS: MEAN CORPUSCULAR HEMOGLOBIN 31.4 PG (27.0-31.0); MEAN CORPUSCULAR HGB CONC 32.2 G/DL (32.0-36.0); MEAN CORPUSCULAR VOLUME 97 FL (80-99); MEAN PLATELET VOLUME 11.1 FL (6.5-10.1); PLATELET COUNT 50 K/UL (150-450); RED BLOOD COUNT 2.83 M/UL (4.20-5.40); RED CELL DISTRIBUTION WIDTH 14.1 % (11.6-14.8)
[2016-09-15 07:47] LABS: ANION GAP 21 (5-15); CALCIUM 6.5 mg/dL (8.6-10.2); CARBON DIOXIDE 20 mEQ/L (20-30); CHLORIDE 103 mEQ/L (98-107); CREATININE 6.1 mg/dL (0.5-0.9); HEMOLYSIS 18; POTASSIUM 3.4 mEQ/L (3.4-4.9); SODIUM 144 mEQ/L (135-145)
[2016-09-15] MEDS: Heparin 5000 units/ml inj SUBQ SCH ×2 (09:00→21:00)
[2016-09-15] MEDS: Pantoprazole Inj IVP SCH (09:29)
[2016-09-15] MEDS: Aspirin Baby 81mg GT SCH (09:29)
--- NOTE | 2016-09-15 09:57 | Pulmonology Progress Note ---
Assessment/Plan Assessment/Plan ASSESSMENT NSTEMI acute toxic metabolic encephalopathy( likely 2 to JENNIFER ) pacemaker DM JENNIFER 2 to dehydration vs drug OD hyperkalemia hypocalcemia and hyperphosphatemia severe metabolic acidosis anemia of chronic disease PLAN OF CARE tele cardio follows not a candidate for invasive therapy at this time - as per cardio on ASA, BB, statin, Nitrostat, no MELO/ARB due to JENNIFER ECHO with EF 35-40% and RVSP of 77 c/w severe pulmonary HTN , sever MR and moderate TR urine toxic screen + opiates , barbiturates ? accidental vs intentional s/p IVF , no improvement started on HD nephro follows had 2 HD, declined 3/4 renal parameters today as yesterday, not worse but still warrant HD O2 HHN prn BS management with SS of insulin NGT with TF strict aspiration precautions DVT, GI prophylaxis on Renvela as per nephro (phosphate binding agent) , monitor Ca and P HH at baseline, monitor , transfuse prn case discussed and evaluated by supervising physician Subjective Allergies: Coded Allergies: NO KNOWN ALLERGIES (Verified Allergy, Unknown, 09/12/16) Subjective declined HD 3/4, had x2 before afebrile, mild leucocytosis no signs of respiratory distress , on O2 via NC today's renal parameters without change from yesterday Objective Last 24 Hour Vital Signs Date Time Temp Pulse Resp B/P Pulse Ox O2 Delivery O2 Flow Rate FiO2 09/15/16 09:29 63 165/61 09/15/16 08:00 96.7 63 17 165/61 100 Room Air 2.0 09/15/16 04:35 61 153/63 09/15/16 04:24 97.0 58 20 180/67 96 Nasal Cannula 2.0 09/15/16 04:00 61 09/15/16 00:06 97.7 63 20 165/64 99 Nasal Cannula 2.0 09/15/16 00:00 62 09/14/16 21:09 65 169/68 09/14/16 21:02 169/68 09/14/16 20:00 96.4 65 18 181/71 Nasal Cannula 2.0 98 09/14/16 20:00 64 09/14/16 19:00 76 16 Nasal Cannula 2.0 09/14/16 19:00 Nasal Cannula 2.0 09/14/16 19:00 97 Nasal Cannula 2.0 28 09/14/16 16:00 68 09/14/16 16:00 97.2 65 19 144/54 Nasal Cannula 2.0 99 09/14/16 14:46 Nasal Cannula 2.0 28 09/14/16 12:00 96.6 68 17 145/71 98 Nasal Cannula 2.0 09/14/16 12:00 65 Intake and Output 09/14/16 09/15/16 19:00 07:00 Intake Total 420 ml 500 ml Output Total 350 ml 1050 ml Balance 70 ml -550 ml Free Water 200 ml 100 ml Tube Feeding 220 ml 300 ml Other 100 ml Output Urine Total 350 ml 1050 ml # Bowel Movements 1 1 Objective General Appearance: no acute distress, awake, alert, confused Citizen Of [place] speaking female HEENT: normocephalic, atraumatic Respiratory/Chest: lungs clear - with moderate air entry , R subclavian HD catheter Cardiovascular: normal rate, regular rhythm - pacing Abdomen: normal bowel sounds, soft, non tender, non distended Genitourinary: normal external genitalia Extremities: other - tarce edema BLE Neurologic/Psychiatric: no motor/sensory deficits, alert, responsive Musculoskeletal: normal muscle bulk Laboratory Tests 09/14/16 12:25: White Blood Count 9.6, Red Blood Count 3.17L, Hemoglobin 9.7L, Hematocrit 30.6L , Mean Corpuscular Volume 96, Mean Corpuscular Hemoglobin 30.7, Mean Corpuscular Hemoglobin Concent 31.8L, Red Cell Distribution Width 14.8, Platelet Count 49L, Mean Platelet Volume 9.9, Neutrophils (%) (Auto) , Lymphocytes (%) (Auto) , Monocytes (%) (Auto) , Eosinophils (%) (Auto) , Basophils (%) (Auto) , Differential Total Cells Counted 100, Neutrophils % ( Manual) 62, Lymphocytes % (Manual) 28, Monocytes % (Manual) 2, Eosinophils % ( Manual) 1, Basophils % (Manual) 0, Band Neutrophils 7, Platelet Estimate DecreasedL, Platelet Morphology Normal, Hypochromasia 1+, Anisocytosis 1+, Macrocytosis 1+, Sodium Level 142, Potassium Level 3.9, Chloride Level 98, Carbon Dioxide Level 20, Anion Gap 24H, Blood Urea Nitrogen 84#H, Creatinine 6.4H, Estimat Glomerular Filtration Rate , Glucose Level 179H, Uric Acid 5.1, Calcium Level 6.5#L, Phosphorus Level 6.5H, Total Bilirubin 0.6, Aspartate Amino Transf (AST/SGOT) 29, Alanine Aminotransferase (ALT/SGPT) 16, Alkaline Phosphatase 97, Total Creatine Kinase 247H, Troponin I 6.60*H, C-Reactive Protein, Quantitative 6.3H, Pro-B-Type Natriuretic Peptide > 98021L, Total Protein 4.5L, Albumin 2.7L, Globulin 1.8, Albumin/Globulin Ratio 1.5 09/15/16 05:30: White Blood Count 11.0H, Red Blood Count 2.83L, Hemoglobin 8.9L, Hematocrit 27.5L, Mean Corpuscular Volume 97, Mean Corpuscular Hemoglobin 31.4H, Mean Corpuscular Hemoglobin Concent 32.2, Red Cell Distribution Width 14.1, Platelet Count 50L, Mean Platelet Volume 11.1H, Neutrophils (%) (Auto) , Lymphocytes (%) (Auto) , Monocytes (%) (Auto) , Eosinophils (%) (Auto) , Basophils (%) (Auto) , Neutrophils % (Manual) [Pending], Lymphocytes % (Manual) [Pending], Platelet Estimate [Pending], Platelet Morphology [Pending], Sodium Level 144, Potassium Level 3.4, Chloride Level 103, Carbon Dioxide Level 20, Anion Gap 21H, Blood Urea Nitrogen 87H, Creatinine 6.1H, Estimat Glomerular Filtration Rate , Glucose Level 167H, Calcium Level 6.5L Current Medications Medications (Trade) Dose Ordered Sig/Serafin Route PRN Reason Start Time Stop Time Status Last Admin Dose Admin Acetaminophen (Tylenol) 650 mg Q4H PRN ORAL Fever 09/13/16 16:30 10/13/16 16:29 Acetaminophen (Tylenol) 650 mg Q4H PRN ORAL Mild Pain (Pain Scale 1-3) 09/13/16 16:30 10/13/16 16:29 Albuterol/ Ipratropium (DuoNeb 0.5-3(2.5)mg/3ml) 3 ml Q4H PRN HHN Shortness of Breath 09/13/16 16:30 09/18/16 16:29 Aluminum Hydroxide (Amphojel) 1,920 mg EVERY 3 HOURS NG 09/13/16 18:00 10/13/16 17:59 09/15/16 09:29 Aspirin (ASA) 81 mg DAILY GT 09/14/16 09:00 10/14/16 08:59 09/15/16 09:29 Atorvastatin Calcium (Lipitor) 10 mg BEDTIME ORAL 09/14/16 21:00 10/14/16 20:59 09/14/16 21:09 Carvedilol (Coreg) 3.125 mg EVERY 12 HOURS ORAL 09/14/16 21:00 10/14/16 20:59 09/15/16 09:29 Dextrose (Dextrose 50%) STAT PRN IV Hypoglycemia 09/13/16 16:00 10/13/16 15:59 Heparin Sodium (Porcine) (Heparin 5000 units/ml) 5,000 units EVERY 12 HOURS SUBQ 09/13/16 21:00 10/13/16 20:59 Insulin Aspart (NovoLOG) Q6HR SUBQ 09/13/16 18:00 10/13/16 17:59 09/15/16 06:26 Ondansetron HCl (Zofran) 4 mg Q6H PRN IVP Nausea & Vomiting 09/13/16 16:30 10/13/16 16:29 Pantoprazole (Protonix) 40 mg EVERY 12 HOURS IVP 09/13/16 21:00 10/13/16 20:59 09/15/16 09:29 Polyethylene Glycol (Miralax) 17 gm DAILYPRN PRN ORAL Constipation 09/13/16 16:30 10/13/16 16:29 Sevelamer Carbonate (Renvela) 1,600 mg Q6HR ORAL 09/13/16 18:00 10/13/16 17:59 09/15/16 06:26 Nathalie Mcgowan NP ([facility]) Sep 15, 2016 09:57
[2016-09-15 10:19] LABS: BAND NEUTROPHILS % (MANUAL) 0 % (0-8); BASOPHILS % (MANUAL) 0 % (0-2); EOSINOPHILS % (MANUAL) 1 % (0-3); LYMPHOCYTES % (MANUAL) 14 % (20-45); NEUTROPHILS % (MANUAL) 81 % (45-75); PLATELET ESTIMATE DECREASED; TOTAL CELLS COUNTED 100
[2016-09-15 10:20] LABS: ANISOCYTOSIS 1+; HYPOCHROMASIA 2+; PLATELET MORPHOLOGY NORMAL; SPHEROCYTES 1+
--- NOTE | 2016-09-15 12:20 | General Progress Note ---
Assessment/Plan Status: unchanged Status Narrative refused HD 09/14/16 Assessment/Plan status; JENNIFER (acute kidney injury)- Underlying CKD Severe Hyperkalemia Possible Rhabdomyolysis Pace Maker High Toponin I Plan: start Nitro- Asprin, Ca Chann Blkrs Phos binders to treat high Phos and low Calcium protonix to PO start Nephro NGT feeding Monitor renal parameters HD in am- Subjective ROS Limited/Unobtainable: No Constitutional: Reports: malaise, weakness Allergies: Coded Allergies: NO KNOWN ALLERGIES (Verified Allergy, Unknown, 09/12/16) Objective Last 24 Hour Vital Signs Date Time Temp Pulse Resp B/P Pulse Ox O2 Delivery O2 Flow Rate FiO2 09/15/16 09:29 63 165/61 09/15/16 08:00 96.7 63 17 165/61 100 Room Air 2.0 09/15/16 04:35 61 153/63 09/15/16 04:24 97.0 58 20 180/67 96 Nasal Cannula 2.0 09/15/16 04:00 61 09/15/16 00:06 97.7 63 20 165/64 99 Nasal Cannula 2.0 09/15/16 00:00 62 09/14/16 21:09 65 169/68 09/14/16 21:02 169/68 09/14/16 20:00 96.4 65 18 181/71 Nasal Cannula 2.0 98 09/14/16 20:00 64 09/14/16 19:00 76 16 Nasal Cannula 2.0 09/14/16 19:00 Nasal Cannula 2.0 09/14/16 19:00 97 Nasal Cannula 2.0 28 09/14/16 16:00 68 09/14/16 16:00 97.2 65 19 144/54 Nasal Cannula 2.0 99 09/14/16 14:46 Nasal Cannula 2.0 28 Intake and Output 09/14/16 09/15/16 19:00 07:00 Intake Total 420 ml 500 ml Output Total 350 ml 1050 ml Balance 70 ml -550 ml Free Water 200 ml 100 ml Tube Feeding 220 ml 300 ml Other 100 ml Output Urine Total 350 ml 1050 ml # Bowel Movements 1 1 Laboratory Tests 09/14/16 12:25: White Blood Count 9.6, Red Blood Count 3.17L, Hemoglobin 9.7L, Hematocrit 30.6L , Mean Corpuscular Volume 96, Mean Corpuscular Hemoglobin 30.7, Mean Corpuscular Hemoglobin Concent 31.8L, Red Cell Distribution Width 14.8, Platelet Count 49L, Mean Platelet Volume 9.9, Neutrophils (%) (Auto) , Lymphocytes (%) (Auto) , Monocytes (%) (Auto) , Eosinophils (%) (Auto) , Basophils (%) (Auto) , Differential Total Cells Counted 100, Neutrophils % ( Manual) 62, Lymphocytes % (Manual) 28, Monocytes % (Manual) 2, Eosinophils % ( Manual) 1, Basophils % (Manual) 0, Band Neutrophils 7, Platelet Estimate DecreasedL, Platelet Morphology Normal, Hypochromasia 1+, Anisocytosis 1+, Macrocytosis 1+, Sodium Level 142, Potassium Level 3.9, Chloride Level 98, Carbon Dioxide Level 20, Anion Gap 24H, Blood Urea Nitrogen 84#H, Creatinine 6.4H, Estimat Glomerular Filtration Rate , Glucose Level 179H, Uric Acid 5.1, Calcium Level 6.5#L, Phosphorus Level 6.5H, Total Bilirubin 0.6, Aspartate Amino Transf (AST/SGOT) 29, Alanine Aminotransferase (ALT/SGPT) 16, Alkaline Phosphatase 97, Total Creatine Kinase 247H, Troponin I 6.60*H, C-Reactive Protein, Quantitative 6.3H, Pro-B-Type Natriuretic Peptide > 63859M, Total Protein 4.5L, Albumin 2.7L, Globulin 1.8, Albumin/Globulin Ratio 1.5 09/15/16 05:30: White Blood Count 11.0H, Red Blood Count 2.83L, Hemoglobin 8.9L, Hematocrit 27.5L, Mean Corpuscular Volume 97, Mean Corpuscular Hemoglobin 31.4H, Mean Corpuscular Hemoglobin Concent 32.2, Red Cell Distribution Width 14.1, Platelet Count 50L, Mean Platelet Volume 11.1H, Neutrophils (%) (Auto) , Lymphocytes (%) (Auto) , Monocytes (%) (Auto) , Eosinophils (%) (Auto) , Basophils (%) (Auto) , Differential Total Cells Counted 100, Neutrophils % (Manual) 81H, Lymphocytes % (Manual) 14L, Monocytes % (Manual) 4, Eosinophils % (Manual) 1, Basophils % ( Manual) 0, Band Neutrophils 0, Platelet Estimate DecreasedL, Platelet Morphology Normal, Hypochromasia 2+, Anisocytosis 1+, Sodium Level 144, Potassium Level 3.4, Chloride Level 103, Carbon Dioxide Level 20, Anion Gap 21H , Blood Urea Nitrogen 87H, Creatinine 6.1H, Estimat Glomerular Filtration Rate , Glucose Level 167H, Calcium Level 6.5L, Spherocytes 1+ Height (Feet): 5 Height (Inches): 6.00 Weight (Pounds): 142 General Appearance: no apparent distress EENT: other - NGT + Objective other PE not changed RICKI SALGADO 5, 2017 12:20
[2016-09-15] MEDS: Calcium Carbonate 1250mg/5ml Liquid ud NG SCH ×2 (12:48→17:32)
--- NOTE | 2016-09-15 14:07 | Cardiology Progress Note ---
Assessment/Plan Problem List: (1) Altered level of consciousness (2) Pacemaker (3) Diabetes mellitus (4) NSTEMI (non-ST elevated myocardial infarction) (5) JENNIFER (acute kidney injury) Status: stable, not improved, unchanged Status Narrative Mrs. Mullen is s/p acute nonSTEMI. Troponin levels are decreasing. EKG on adm not interpretable due to paced v rhythm. However, pt now w/ intact AV conduction. EKG 09/14 showed SR, PVCs and LVH w/ T inv laterally and inf - ? repol. EF 35-40% by echo this adm, w/ global hypokinesis and severe MR She is in renal failure, w/ HD access, but refusing to be dialyzed Assessment/Plan Will continue asa and start statin, coreg for CAD and ischemic cm. No mark inh/ ARB due to RF Continue to monitor renal parameters. Hopefully will agree to dialysis soon. . Subjective ROS Limited/Unobtainable: No Subjective Mrs. Mullen denies dyspnea or cp events noted. Objective Last 24 Hour Vital Signs Date Time Temp Pulse Resp B/P Pulse Ox O2 Delivery O2 Flow Rate FiO2 09/15/16 12:47 63 165/61 09/15/16 12:30 97.0 64 18 177/68 99 Nasal Cannula 2.0 09/15/16 12:00 97.0 62 18 158/58 98 Nasal Cannula 2.0 09/15/16 09:29 63 165/61 09/15/16 08:00 96.7 63 17 165/61 100 Room Air 2.0 09/15/16 04:35 61 153/63 09/15/16 04:24 97.0 58 20 180/67 96 Nasal Cannula 2.0 09/15/16 04:00 61 09/15/16 00:06 97.7 63 20 165/64 99 Nasal Cannula 2.0 09/15/16 00:00 62 09/14/16 21:09 65 169/68 09/14/16 21:02 169/68 09/14/16 20:00 96.4 65 18 181/71 Nasal Cannula 2.0 98 09/14/16 20:00 64 09/14/16 19:00 76 16 Nasal Cannula 2.0 09/14/16 19:00 Nasal Cannula 2.0 09/14/16 19:00 97 Nasal Cannula 2.0 28 09/14/16 16:00 68 09/14/16 16:00 97.2 65 19 144/54 Nasal Cannula 2.0 99 09/14/16 14:46 Nasal Cannula 2.0 28 General Appearance: WD/WN, no apparent distress, alert, obese EENT: PERRL/EOMI Neck: supple, other - R IJ dialysis catheter Rhythm: NSR Cardiovascular: normal rate, regular rhythm, no gallop/murmur Respiratory/Chest: lungs clear - clear anteriorly Abdomen: non tender, soft Extremities: no swelling Intake and Output 09/14/16 09/15/16 19:00 07:00 Intake Total 420 ml 500 ml Output Total 350 ml 1050 ml Balance 70 ml -550 ml Free Water 200 ml 100 ml Tube Feeding 220 ml 300 ml Other 100 ml Output Urine Total 350 ml 1050 ml # Bowel Movements 1 1 Laboratory Tests Test 09/15/16 05:30 White Blood Count 11.0 K/UL (4.8-10.8) H Red Blood Count 2.83 M/UL (4.20-5.40) L Hemoglobin 8.9 G/DL (12.0-16.0) L Hematocrit 27.5 % (37.0-47.0) L Mean Corpuscular Volume 97 FL (80-99) Mean Corpuscular Hemoglobin 31.4 PG (27.0-31.0) H Mean Corpuscular Hemoglobin Concent 32.2 G/DL (32.0-36.0) Red Cell Distribution Width 14.1 % (11.6-14.8) Platelet Count 50 K/UL (150-450) L Mean Platelet Volume 11.1 FL (6.5-10.1) H Neutrophils (%) (Auto) % (45.0-75.0) Lymphocytes (%) (Auto) % (20.0-45.0) Monocytes (%) (Auto) % (1.0-10.0) Eosinophils (%) (Auto) % (0.0-3.0) Basophils (%) (Auto) % (0.0-2.0) Differential Total Cells Counted 100 Neutrophils % (Manual) 81 % (45-75) H Lymphocytes % (Manual) 14 % (20-45) L Monocytes % (Manual) 4 % (1-10) Eosinophils % (Manual) 1 % (0-3) Basophils % (Manual) 0 % (0-2) Band Neutrophils 0 % (0-8) Platelet Estimate Decreased L Platelet Morphology Normal Hypochromasia 2+ Anisocytosis 1+ Spherocytes 1+ Sodium Level 144 mEQ/L (135-145) Potassium Level 3.4 mEQ/L (3.4-4.9) Chloride Level 103 mEQ/L (98-107) Carbon Dioxide Level 20 mEQ/L (20-30) Anion Gap 21 (5-15) H Blood Urea Nitrogen 87 mg/dL (7-23) H Creatinine 6.1 mg/dL (0.5-0.9) H Estimat Glomerular Filtration Rate mL/min (>60) Glucose Level 167 mg/dL (74-106) H Calcium Level 6.5 mg/dL (8.6-10.2) [place] Sep 15, 2016 14:06
--- NOTE | 2016-09-15 14:43 | General Progress Note ---
Assessment/Plan Problem List: (1) NSTEMI (non-ST elevated myocardial infarction) ICD Codes: I21.4 - Non-ST elevation (NSTEMI) myocardial infarction SNOMED: 67298419 (2) Acute systolic heart failure Assessment & Plan: EF 35-40% ICD Codes: I50.21 - Acute systolic (congestive) heart failure SNOMED: 416445785 (3) Toxic metabolic encephalopathy ICD Codes: G92 - Toxic encephalopathy SNOMED: 190404231 (4) JENNIFER (acute kidney injury) ICD Codes: N17.9 - Acute kidney failure, unspecified SNOMED: 09100578 (5) Hyperkalemia ICD Codes: E87.5 - Hyperkalemia SNOMED: 31107360 (6) High anion gap metabolic acidosis ICD Codes: E87.2 - Acidosis SNOMED: 56482260 (7) Pacemaker ICD Codes: Z95.0 - Presence of cardiac pacemaker SNOMED: 019808041, 661111570 (8) Diabetes mellitus ICD Codes: E11.9 - Type 2 diabetes mellitus without complications SNOMED: 01459674 Status: stable Assessment/Plan Utox positive for opioids and barbiturates which may be likely culprits of encephalopathy. Unclear if pt had overdosed and whether it is intentional or accidental Etiology of JENNIFER may be pre-renal 2/2 dehydration (found down x 2 days vs cardiorenal (given new found cardiomgyopathy and elevated BNP), component of rhabdomylosis, and/or ATN Pt also with NSTEMI, EF 35-50%--acute vs subacute. Has h/o CAD w/ stent to LAD Appreciate pulm/critical care, nephrology, neurology, cardiology rec's s/p temporary HD line placement on 09/12/16 HD initiated on 09/12/16; cont HD per renal--currently refusing but unclear if she clearly understands risks/benefits as she is not able to articulate it Trend lytes and Cr Avoid nephrotoxic agents Plan for medical mgmt of NSTEMI a pt not a candidate for invasive therapy per cardiology Cont ASA, statin, coreg. No MELO-I/ARB given renal failure RALF PT/OT/ST Keep NPO for now per DOCUMENT CONTROL CLERK; reassess on Fri Cont on NGT for now DVT Prophylaxis: SCD, HSQ Code Status: Full Hospital Classification Declaration: Based on this initial evaluation, and depending on the patient's clinical course, I anticipate that this patient will require hospitalization for 3-4 days for JENNIFER, severe metabolic acidosis, NSTEMI , and close respiratory/hemodynamic monitoring. Disposition: Once the patient is stable to leave the hospital, I anticipate the patient will likely be discharged to the following environment: home with HH vs SNF I spent 38 minutes on this patient's case, and 22 minutes were dedicated to counseling and/or care coordination. Discussed with patient/family, nursing staff, SW/CM, pulm, cardiology, nephrology regarding clinical status, treatment course, and disposition planning. Time of note may not reflect time of encounter. Subjective Date patient seen: Sep 15, 2016 Time patient seen: 14:43 ROS Limited/Unobtainable: No Constitutional: Reports: no symptoms HEENT: Reports: no symptoms Cardiovascular: Reports: no symptoms Respiratory: Reports: no symptoms Gastrointestinal/Abdominal: Reports: no symptoms Genitourinary: Reports: no symptoms Neurologic/Psychiatric: Reports: no symptoms Endocrine: Reports: no symptoms Hematologic/Lymphatic: Reports: no symptoms Allergies: Coded Allergies: NO KNOWN ALLERGIES (Verified Allergy, Unknown, 09/12/16) Subjective More awake, alert. Stated she was in [employer] Refused HD yesterday. Unable to clearly state why Objective Last 24 Hour Vital Signs Date Time Temp Pulse Resp B/P Pulse Ox O2 Delivery O2 Flow Rate FiO2 09/15/16 12:47 63 165/61 09/15/16 12:30 97.0 64 18 177/68 99 Nasal Cannula 2.0 09/15/16 12:00 97.0 62 18 158/58 98 Nasal Cannula 2.0 09/15/16 12:00 63 09/15/16 09:29 63 165/61 09/15/16 08:00 63 09/15/16 08:00 96.7 63 17 165/61 100 Room Air 2.0 09/15/16 04:35 61 153/63 09/15/16 04:24 97.0 58 20 180/67 96 Nasal Cannula 2.0 09/15/16 04:00 61 09/15/16 00:06 97.7 63 20 165/64 99 Nasal Cannula 2.0 09/15/16 00:00 62 09/14/16 21:09 65 169/68 09/14/16 21:02 169/68 09/14/16 20:00 96.4 65 18 181/71 Nasal Cannula 2.0 98 09/14/16 20:00 64 09/14/16 19:00 76 16 Nasal Cannula 2.0 09/14/16 19:00 Nasal Cannula 2.0 09/14/16 19:00 97 Nasal Cannula 2.0 28 09/14/16 16:00 68 09/14/16 16:00 97.2 65 19 144/54 Nasal Cannula 2.0 99 09/14/16 14:46 Nasal Cannula 2.0 28 Intake and Output 09/14/16 09/15/16 19:00 07:00 Intake Total 420 ml 500 ml Output Total 350 ml 1050 ml Balance 70 ml -550 ml Free Water 200 ml 100 ml Tube Feeding 220 ml 300 ml Other 100 ml Output Urine Total 350 ml 1050 ml # Bowel Movements 1 1 Laboratory Tests 09/15/16 05:30: White Blood Count 11.0H, Red Blood Count 2.83L, Hemoglobin 8.9L, Hematocrit 27.5L, Mean Corpuscular Volume 97, Mean Corpuscular Hemoglobin 31.4H, Mean Corpuscular Hemoglobin Concent 32.2, Red Cell Distribution Width 14.1, Platelet Count 50L, Mean Platelet Volume 11.1H, Neutrophils (%) (Auto) , Lymphocytes (%) (Auto) , Monocytes (%) (Auto) , Eosinophils (%) (Auto) , Basophils (%) (Auto) , Differential Total Cells Counted 100, Neutrophils % (Manual) 81H, Lymphocytes % (Manual) 14L, Monocytes % (Manual) 4, Eosinophils % (Manual) 1, Basophils % ( Manual) 0, Band Neutrophils 0, Platelet Estimate DecreasedL, Platelet Morphology Normal, Hypochromasia 2+, Anisocytosis 1+, Spherocytes 1+, Sodium Level 144, Potassium Level 3.4, Chloride Level 103, Carbon Dioxide Level 20, Anion Gap 21H, Blood Urea Nitrogen 87H, Creatinine 6.1H, Estimat Glomerular Filtration Rate , Glucose Level 167H, Calcium Level 6.5L Height (Feet): 5 Height (Inches): 6.00 Weight (Pounds): 142 Objective General: awake, alert Head: normocephalic, without obvious abnormality, atraumatic Eyes: conjunctivae/corneas clear. PERRL, EOM's intact Throat: lips, mucosa, and tongue normal. MMM Neck: supple, symmetrical, trachea midline, and no JVD Lungs: clear to auscultation bilaterally Heart: regular rate and rhythm, S1, S2 normal, no murmur, click, rub or gallop Abdomen: soft, non-tender, non-distended, bowel sounds normal; no masses or organomegaly Extremities: extremities normal, atraumatic, no cyanosis or edema Pulses: 2+ and symmetric Skin: skin color, texture, turgor normal; no rashes or lesions Neurologic: no focal deficits Rubia Ma M.D. Sep 15, 2016 14:43
[2016-09-15] MEDS: Nitroglycerin 2% oint pkt TOPIC SCH (17:32)
[2016-09-15] MEDS: Carvedilol 6.25mg Tab ORAL SCH (22:27)
[2016-09-16 00:09] VITALS: BP 158/55
[2016-09-16] MEDS: Renvela 800mg Pkt ORAL SCH ×4 (00:40→18:46)
[2016-09-16] MEDS: NovoLOG Insulin Flexpen SUBQ SCH ×4 (00:45→18:48)
[2016-09-16 04:00] VITALS: BP 165/60
[2016-09-16] MEDS: Nitroglycerin 2% oint pkt TOPIC SCH ×3 (05:39→18:47)
[2016-09-16 07:32] VITALS: BP 162/58
--- NOTE | 2016-09-16 08:09 | Diagnostic Imaging Report ---
Indication: Nasogastric tube placement Technique: Supine abdomen Comparison: None Findings: Nasogastric tube is within the stomach. Bowel gas pattern is nonspecific. Surgical clips are noted. There is a left chest pacemaker. Impression: Nasogastric tube within the stomach.
--- NOTE | 2016-09-16 08:09 | Diagnostic Imaging Report ---
Indication: Shortness of breath Technique: Chest one view Comparison: 09/13/16 Findings: Nasogastric tube, left chest pacemaker and right internal jugular Wood catheter are unchanged. The cardiomediastinal silhouette is stable. Perihilar and basilar airspace disease is again noted. Osseous structures are stable. Impression: Cardiomegaly with perihilar and basilar airspace edema/infiltrates. Stable right internal jugular Wood catheter, nasogastric tube and left chest pacemaker.
--- NOTE | 2016-09-16 08:09 | Diagnostic Imaging Report ---
Indication: Hemodialysis access Technique: Informed written consent was obtained. Procedure was performed by Dr. Rogers. Bedside placement was performed. All elements of maximal sterile barrier technique followed including: cap and mask and sterile gown and sterile gloves and a large sterile sheet and hand hygiene and 2% chlorhexidine for cutaneous antisepsis. Sonographic evaluation of the right neck was performed demonstrating a patent and compressible right internal jugular vein. Access was obtained under real-time ultrasound guidance. A wire was placed through the needle. The needle was removed and the tract was dilated. A 16 cm 11.5 Setswana was then placed. The wire was removed. All ports were flushed and working well. 1000 units of heparin was left in each dialysis port in the appropriate volume. The catheter was sewn to the skin utilizing 2 monofilament sutures. The patient tolerated the procedure well. There were no complications. Chest x-ray following the procedure demonstrates the tip of the catheter in the right atrium. Impression: Successful placement of a 16 cm 11.5 Setswana non-tunneled hemodialysis catheter via the right internal jugular vein with the tip in the right atrium. No complications.
[2016-09-16 08:15] LABS: MEAN CORPUSCULAR HEMOGLOBIN 31.1 PG (27.0-31.0); MEAN CORPUSCULAR HGB CONC 32.1 G/DL (32.0-36.0); MEAN CORPUSCULAR VOLUME 97 FL (80-99); MEAN PLATELET VOLUME 9.6 FL (6.5-10.1); PLATELET COUNT 64 K/UL (150-450); RED BLOOD COUNT 2.74 M/UL (4.20-5.40); WHITE BLOOD COUNT 10.2 K/UL (4.8-10.8)
[2016-09-16 08:29] LABS: CRP QUANT 2.5 mg/dL (< 0.5); MAGNESIUM 1.6 mg/dL (1.7-2.5); PHOSPHORUS 4.8 mg/dL (2.5-4.8); URIC ACID 5.7 mg/dL (3.0-7.5)
[2016-09-16 08:37] LABS: ALANINE AMINOTRANSFERASE 10 U/L (3-33); ALBUMIN/GLOBULIN RATIO 1.4 (1.0-2.7); ANION GAP 18 (5-15); ASPARTATE AMINO TRANSFERASE 13 U/L (5-40); CARBON DIOXIDE 24 mEQ/L (20-30); CHLORIDE 102 mEQ/L (98-107); CREATININE 6.2 mg/dL (0.5-0.9); HEMOLYSIS 27; POTASSIUM 3.3 mEQ/L (3.4-4.9); SODIUM 144 mEQ/L (135-145); TOTAL PROTEIN 4.1 g/dL (6.6-8.7)
[2016-09-16 08:39] LABS: ANISOCYTOSIS 1+; BAND NEUTROPHILS % (MANUAL) 1 % (0-8); BASOPHILS % (MANUAL) 0 % (0-2); EOSINOPHILS % (MANUAL) 3 % (0-3); HYPOCHROMASIA 2+; LYMPHOCYTES % (MANUAL) 6 % (20-45); NEUTROPHILS % (MANUAL) 84 % (45-75); PLATELET ESTIMATE DECREASED; PLATELET MORPHOLOGY NORMAL; SPHEROCYTES 2+; TOTAL CELLS COUNTED 100
--- NOTE | 2016-09-16 09:34 | Diagnostic Imaging Report ---
Indication: Nasogastric tube placement Technique: XRAY ABDOMEN 1VIEW/KUB Comparison: 09/14/16 at 0152 hours Findings: Nasogastric tube is within the stomach. Bowel gas pattern is nonspecific. Degenerative changes of the spine are seen. Vascular calcifications are noted. Clips are seen of the abdomen. Impression: Nasogastric tube within the stomach.
[2016-09-16] MEDS: Carvedilol 6.25mg Tab ORAL SCH ×2 (10:08→21:21)
[2016-09-16] MEDS: Heparin 5000 units/ml inj SUBQ SCH ×2 (10:09→21:00)
[2016-09-16] MEDS: Calcium Carbonate 1250mg/5ml Liquid ud NG SCH ×3 (10:09→18:47)
[2016-09-16 11:18] VITALS: BP 134/48
--- NOTE | 2016-09-16 12:17 | Diagnostic Imaging Report ---
Indication: Dyspnea Comparison: 09/13/16 A single view chest radiograph was obtained. Findings: Interstitial and airspace disease demonstrated especially at the lung bases. Cardiomegaly is present. There is a right jugular dialysis catheter and a nasogastric tube which appeared good position. Impression: No significant radiographic change. Basilar densities likely represent pulmonary edema although pneumonia is not excluded
--- NOTE | 2016-09-16 12:36 | Cardiology Report ---
APPROVED REPORT EXAM: Two-dimensional and M-mode echocardiogram with Doppler and color Doppler. INDICATION Other M-Mode DIMENSIONS IVSd1.5 (0.7-1.1cm)Left Atrium (MM)4.5 (1.6-4.0cm) LVDd5.2 (3.5-5.6cm)Aortic Root3.0 (2.0-3.7cm) PWd1.0 (0.7-1.1cm)Aortic Cusp Exc.2.0 (1.5-2.0cm) LVDs4.0 (2.5-4.0cm) PWs1.6 cm Normal left ventricular size. Global left ventricular hypokinesis. Left ventricular ejection fraction estimated to be 35-40 %. Mild left ventricular hypertrophy. Anterior Echo-free space, may be due to pericardial fat or effusion. All other cardiac chamber sizes are within normal limits. Mild focal aortic valve sclerosis with adequate cusp excursion. Mildly thickened mitral valve leaflets with normal excursion. Mild mitral annulus and aortic root calcification. Normal pulmonic valve structure. Normal tricuspid valve structure. A color flow and spectral Doppler study was performed and revealed: Mild aortic regurgitation. Severe mitral regurgitation. Mitral inflow velocities indicates possible pseudo normalization pattern implying significant left ventricular diastolic dysfunction (Grade II). Moderate tricuspid regurgitation. Tricuspid systolic velocities suggests peak right ventricular systolic pressure of 77 mmHg, consistent with severe pulmonary hypertension. Mild pulmonic regurgitation present.
--- NOTE | 2016-09-16 13:05 | General Progress Note ---
Assessment/Plan Status: unchanged Status Narrative refuses dialysis Assessment/Plan status; JENNIFER (acute kidney injury)- Underlying CKD Severe Hyperkalemia resolved Possible Rhabdomyolysis Pace Maker High Toponin I Plan: start Nitro- Asprin, Ca Chann Blkrs Phos binders to treat high Phos and low Calcium protonix to PO start Nephro NGT feeding Monitor renal parameters HD : refused by patient suggest DC ? Subjective ROS Limited/Unobtainable: No Constitutional: Reports: malaise, weakness Allergies: Coded Allergies: NO KNOWN ALLERGIES (Verified Allergy, Unknown, 09/12/16) Objective Last 24 Hour Vital Signs Date Time Temp Pulse Resp B/P Pulse Ox O2 Delivery O2 Flow Rate FiO2 09/16/16 12:35 134/48 09/16/16 11:18 97.3 63 18 134/48 100 Nasal Cannula 3.0 09/16/16 10:08 62 162/58 09/16/16 10:08 59 162/58 09/16/16 08:00 63 09/16/16 07:35 62 16 Room Air 21 09/16/16 07:32 97.0 59 18 162/58 99 Nasal Cannula 3.0 09/16/16 07:29 98 Room Air 21 09/16/16 07:28 Room Air 09/16/16 05:39 165/60 09/16/16 04:00 97.1 61 18 165/60 99 Room Air 09/16/16 04:00 64 09/16/16 00:09 97.5 62 18 158/55 Nasal Cannula 2.0 98 09/16/16 00:00 62 09/15/16 22:27 64 160/60 09/15/16 20:00 64 09/15/16 20:00 97.7 64 18 160/60 Nasal Cannula 2.0 97 09/15/16 19:30 98 Nasal Cannula 2.0 28 09/15/16 19:30 Nasal Cannula 2.0 28 09/15/16 19:30 69 16 Nasal Cannula 2.0 28 09/15/16 17:32 155/60 09/15/16 16:00 82 09/15/16 16:00 97.9 64 18 155/60 Nasal Cannula 2.0 100 Intake and Output 09/15/16 09/16/16 19:00 07:00 Intake Total 590 ml 560 ml Output Total 300 ml Balance 590 ml 260 ml Free Water 200 ml 200 ml Tube Feeding 390 ml 360 ml Output Urine Total 300 ml # Bowel Movements 1 Laboratory Tests 09/16/16 07:10: White Blood Count 10.2, Red Blood Count 2.74L, Hemoglobin 8.5L, Hematocrit 26.6L , Mean Corpuscular Volume 97, Mean Corpuscular Hemoglobin 31.1H, Mean Corpuscular Hemoglobin Concent 32.1, Red Cell Distribution Width 14.0, Platelet Count 64L, Mean Platelet Volume 9.6, Neutrophils (%) (Auto) , Lymphocytes (%) ( Auto) , Monocytes (%) (Auto) , Eosinophils (%) (Auto) , Basophils (%) (Auto) , Differential Total Cells Counted 100, Neutrophils % (Manual) 84H, Lymphocytes % (Manual) 6L, Monocytes % (Manual) 6, Eosinophils % (Manual) 3, Basophils % ( Manual) 0, Band Neutrophils 1, Platelet Estimate DecreasedL, Platelet Morphology Normal, Hypochromasia 2+, Anisocytosis 1+, Spherocytes 2+, Sodium Level 144, Potassium Level 3.3L, Chloride Level 102, Carbon Dioxide Level 24, Anion Gap 18H, Blood Urea Nitrogen 97H, Creatinine 6.2H, Estimat Glomerular Filtration Rate , Glucose Level 161H, Uric Acid 5.7, Calcium Level 7.0L, Phosphorus Level 4.8, Magnesium Level 1.6L, Total Bilirubin 0.5, Gamma Glutamyl Transpeptidase 21, Aspartate Amino Transf (AST/SGOT) 13, Alanine Aminotransferase (ALT/SGPT) 10, Alkaline Phosphatase 82, C-Reactive Protein, Quantitative 2.5H, Pro-B-Type Natriuretic Peptide > 68021W, Total Protein 4.1L, Albumin 2.4L, Globulin 1.7, Albumin/Globulin Ratio 1.4 Height (Feet): 5 Height (Inches): 6.00 Weight (Pounds): 142 General Appearance: no apparent distress, lethargic, confused EENT: other - NGT in Respiratory/Chest: decreased breath sounds Abdomen: soft Objective other PE not changed RICKI SALGADO Sep 16, 2016 13:05
--- NOTE | 2016-09-16 13:11 | General Progress Note ---
Assessment/Plan Problem List: (1) NSTEMI (non-ST elevated myocardial infarction) ICD Codes: I21.4 - Non-ST elevation (NSTEMI) myocardial infarction SNOMED: 98773440 (2) Acute systolic heart failure Assessment & Plan: EF 35-40% ICD Codes: I50.21 - Acute systolic (congestive) heart failure SNOMED: 527165823 (3) Toxic metabolic encephalopathy ICD Codes: G92 - Toxic encephalopathy SNOMED: 479243875 (4) JENNIFER (acute kidney injury) ICD Codes: N17.9 - Acute kidney failure, unspecified SNOMED: 07288061 (5) Hyperkalemia ICD Codes: E87.5 - Hyperkalemia SNOMED: 04100919 (6) High anion gap metabolic acidosis ICD Codes: E87.2 - Acidosis SNOMED: 31560126 (7) Pacemaker ICD Codes: Z95.0 - Presence of cardiac pacemaker SNOMED: 050534780, 045276474 (8) Diabetes mellitus ICD Codes: E11.9 - Type 2 diabetes mellitus without complications SNOMED: 61691318 Status: stable Assessment/Plan Utox positive for opioids and barbiturates which may be likely culprits of encephalopathy. Unclear if pt had overdosed and whether it is intentional or accidental Etiology of JENNIFER may be pre-renal 2/2 dehydration (found down x 2 days vs cardiorenal (given new found cardiomgyopathy and elevated BNP), component of rhabdomylosis, and/or ATN Pt also with NSTEMI, EF 35-50%--acute vs subacute. Has h/o CAD w/ stent to LAD Appreciate pulm/critical care, nephrology, neurology, cardiology rec's s/p temporary HD line placement on 09/12/16 HD initiated on 09/12/16; cont HD per renal--currently refusing but unclear if she clearly understands risks/benefits as she is not able to articulate it Trend lytes and Cr Avoid nephrotoxic agents Plan for medical mgmt of NSTEMI as pt not a candidate for invasive therapy per cardiology Cont ASA, statin, coreg. 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 Disposition: Once the patient is stable to leave the hospital, I anticipate the patient will likely be discharged to the following environment: SNF I spent 38 minutes on this patient's case, and 22 minutes were dedicated to counseling and/or care coordination. Discussed with patient/family, nursing staff, SW/CM, pulm, cardiology, nephrology regarding clinical status, treatment course, and disposition planning. Time of note may not reflect time of encounter. Subjective Date patient seen: Sep 16, 2016 Time patient seen: 13:10 ROS Limited/Unobtainable: No Constitutional: Reports: no symptoms HEENT: Reports: no symptoms Cardiovascular: Reports: no symptoms Respiratory: Reports: no symptoms Gastrointestinal/Abdominal: Reports: no symptoms Genitourinary: Reports: no symptoms Neurologic/Psychiatric: Reports: no symptoms Endocrine: Reports: no symptoms Hematologic/Lymphatic: Reports: no symptoms Allergies: Coded Allergies: NO KNOWN ALLERGIES (Verified Allergy, Unknown, 09/12/16) All Systems: reviewed and negative except above Subjective More awake, alert. Stated she was in [employer] Refusing HD Discussed w/ son who would like pt placed at SNF Objective Last 24 Hour Vital Signs Date Time Temp Pulse Resp B/P Pulse Ox O2 Delivery O2 Flow Rate FiO2 09/16/16 12:35 134/48 09/16/16 11:18 97.3 63 18 134/48 100 Nasal Cannula 3.0 09/16/16 10:08 62 162/58 09/16/16 10:08 59 162/58 09/16/16 08:00 63 09/16/16 07:35 62 16 Room Air 21 09/16/16 07:32 97.0 59 18 162/58 99 Nasal Cannula 3.0 09/16/16 07:29 98 Room Air 21 09/16/16 07:28 Room Air 09/16/16 05:39 165/60 09/16/16 04:00 97.1 61 18 165/60 99 Room Air 09/16/16 04:00 64 09/16/16 00:09 97.5 62 18 158/55 Nasal Cannula 2.0 98 09/16/16 00:00 62 09/15/16 22:27 64 160/60 09/15/16 20:00 64 09/15/16 20:00 97.7 64 18 160/60 Nasal Cannula 2.0 97 09/15/16 19:30 98 Nasal Cannula 2.0 28 09/15/16 19:30 Nasal Cannula 2.0 28 09/15/16 19:30 69 16 Nasal Cannula 2.0 28 09/15/16 17:32 155/60 09/15/16 16:00 82 09/15/16 16:00 97.9 64 18 155/60 Nasal Cannula 2.0 100 Intake and Output 09/15/16 09/16/16 19:00 07:00 Intake Total 590 ml 560 ml Output Total 300 ml Balance 590 ml 260 ml Free Water 200 ml 200 ml Tube Feeding 390 ml 360 ml Output Urine Total 300 ml # Bowel Movements 1 Laboratory Tests 09/16/16 07:10: White Blood Count 10.2, Red Blood Count 2.74L, Hemoglobin 8.5L, Hematocrit 26.6L , Mean Corpuscular Volume 97, Mean Corpuscular Hemoglobin 31.1H, Mean Corpuscular Hemoglobin Concent 32.1, Red Cell Distribution Width 14.0, Platelet Count 64L, Mean Platelet Volume 9.6, Neutrophils (%) (Auto) , Lymphocytes (%) ( Auto) , Monocytes (%) (Auto) , Eosinophils (%) (Auto) , Basophils (%) (Auto) , Differential Total Cells Counted 100, Neutrophils % (Manual) 84H, Lymphocytes % (Manual) 6L, Monocytes % (Manual) 6, Eosinophils % (Manual) 3, Basophils % ( Manual) 0, Band Neutrophils 1, Platelet Estimate DecreasedL, Platelet Morphology Normal, Hypochromasia 2+, Anisocytosis 1+, Spherocytes 2+, Sodium Level 144, Potassium Level 3.3L, Chloride Level 102, Carbon Dioxide Level 24, Anion Gap 18H, Blood Urea Nitrogen 97H, Creatinine 6.2H, Estimat Glomerular Filtration Rate , Glucose Level 161H, Uric Acid 5.7, Calcium Level 7.0L, Phosphorus Level 4.8, Magnesium Level 1.6L, Total Bilirubin 0.5, Gamma Glutamyl Transpeptidase 21, Aspartate Amino Transf (AST/SGOT) 13, Alanine Aminotransferase (ALT/SGPT) 10, Alkaline Phosphatase 82, C-Reactive Protein, Quantitative 2.5H, Pro-B-Type Natriuretic Peptide > 98466U, Total Protein 4.1L, Albumin 2.4L, Globulin 1.7, Albumin/Globulin Ratio 1.4 Height (Feet): 5 Height (Inches): 6.00 Weight (Pounds): 142 Objective General: awake, alert Head: normocephalic, without obvious abnormality, atraumatic Eyes: conjunctivae/corneas clear. PERRL, EOM's intact Throat: lips, mucosa, and tongue normal. MMM Neck: supple, symmetrical, trachea midline, and no JVD Lungs: clear to auscultation bilaterally Heart: regular rate and rhythm, S1, S2 normal, no murmur, click, rub or gallop Abdomen: soft, non-tender, non-distended, bowel sounds normal; no masses or organomegaly Extremities: extremities normal, atraumatic, no cyanosis or edema Pulses: 2+ and symmetric Skin: skin color, texture, turgor normal; no rashes or lesions Neurologic: no focal deficits Rubia Ma M.D. Sep 16, 2016 13:11
--- NOTE | 2016-09-16 14:55 | Pulmonology Progress Note ---
Assessment/Plan Problems: (1) Toxic metabolic encephalopathy (2) Acute on chronic renal insufficiency (3) Non-STEMI (non-ST elevated myocardial infarction) (4) Diabetes mellitus (5) Pacemaker (6) Advanced dementia (7) Non-compliance (8) Cardiomyopathy Assessment/Plan pt refusing HD son can't take care of her at home any more will need placement called psych evaluation fo episodes of agitation Subjective ROS Limited/Unobtainable: No Interval Events: awake, comfortable Allergies: Coded Allergies: NO KNOWN ALLERGIES (Verified Allergy, Unknown, 09/12/16) Objective Last 24 Hour Vital Signs Date Time Temp Pulse Resp B/P Pulse Ox O2 Delivery O2 Flow Rate FiO2 09/16/16 12:35 134/48 09/16/16 11:18 97.3 63 18 134/48 100 Nasal Cannula 3.0 09/16/16 10:08 62 162/58 09/16/16 10:08 59 162/58 09/16/16 08:00 63 09/16/16 07:35 62 16 Room Air 21 09/16/16 07:32 97.0 59 18 162/58 99 Nasal Cannula 3.0 09/16/16 07:29 98 Room Air 21 09/16/16 07:28 Room Air 09/16/16 05:39 165/60 09/16/16 04:00 97.1 61 18 165/60 99 Room Air 09/16/16 04:00 64 09/16/16 00:09 97.5 62 18 158/55 Nasal Cannula 2.0 98 09/16/16 00:00 62 09/15/16 22:27 64 160/60 09/15/16 20:00 64 09/15/16 20:00 97.7 64 18 160/60 Nasal Cannula 2.0 97 09/15/16 19:30 98 Nasal Cannula 2.0 28 09/15/16 19:30 Nasal Cannula 2.0 28 09/15/16 19:30 69 16 Nasal Cannula 2.0 28 09/15/16 17:32 155/60 09/15/16 16:00 82 09/15/16 16:00 97.9 64 18 155/60 Nasal Cannula 2.0 100 Intake and Output 09/15/16 09/16/16 19:00 07:00 Intake Total 590 ml 560 ml Output Total 300 ml Balance 590 ml 260 ml Free Water 200 ml 200 ml Tube Feeding 390 ml 360 ml Output Urine Total 300 ml # Bowel Movements 1 General Appearance: WD/WN HEENT: normocephalic, atraumatic Respiratory/Chest: chest wall non-tender, lungs clear Cardiovascular: normal peripheral pulses, normal rate Abdomen: normal bowel sounds, no organomegaly Genitourinary: normal external genitalia Extremities: no cyanosis Skin: no lesions 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 Laboratory Tests 09/16/16 07:10: White Blood Count 10.2, Red Blood Count 2.74L, Hemoglobin 8.5L, Hematocrit 26.6L , Mean Corpuscular Volume 97, Mean Corpuscular Hemoglobin 31.1H, Mean Corpuscular Hemoglobin Concent 32.1, Red Cell Distribution Width 14.0, Platelet Count 64L, Mean Platelet Volume 9.6, Neutrophils (%) (Auto) , Lymphocytes (%) ( Auto) , Monocytes (%) (Auto) , Eosinophils (%) (Auto) , Basophils (%) (Auto) , Differential Total Cells Counted 100, Neutrophils % (Manual) 84H, Lymphocytes % (Manual) 6L, Monocytes % (Manual) 6, Eosinophils % (Manual) 3, Basophils % ( Manual) 0, Band Neutrophils 1, Platelet Estimate DecreasedL, Platelet Morphology Normal, Hypochromasia 2+, Anisocytosis 1+, Spherocytes 2+, Sodium Level 144, Potassium Level 3.3L, Chloride Level 102, Carbon Dioxide Level 24, Anion Gap 18H, Blood Urea Nitrogen 97H, Creatinine 6.2H, Estimat Glomerular Filtration Rate , Glucose Level 161H, Uric Acid 5.7, Calcium Level 7.0L, Phosphorus Level 4.8, Magnesium Level 1.6L, Total Bilirubin 0.5, Gamma Glutamyl Transpeptidase 21, Aspartate Amino Transf (AST/SGOT) 13, Alanine Aminotransferase (ALT/SGPT) 10, Alkaline Phosphatase 82, C-Reactive Protein, Quantitative 2.5H, Pro-B-Type Natriuretic Peptide > 39367A, Total Protein 4.1L, Albumin 2.4L, Globulin 1.7, Albumin/Globulin Ratio 1.4 Current Medications Medications (Trade) Dose Ordered Sig/Serafin Route PRN Reason Start Time Stop Time Status Last Admin Dose Admin Acetaminophen (Tylenol) 650 mg Q4H PRN ORAL Fever 09/13/16 16:30 10/13/16 16:29 09/16/16 10:14 Acetaminophen (Tylenol) 650 mg Q4H PRN ORAL Mild Pain (Pain Scale 1-3) 09/13/16 16:30 10/13/16 16:29 Albuterol/ Ipratropium (DuoNeb 0.5-3(2.5)mg/3ml) 3 ml Q4H PRN HHN Shortness of Breath 09/13/16 16:30 09/18/16 16:29 Amlodipine Besylate (Norvasc) 5 mg DAILY NG 09/16/16 09:00 10/16/16 08:59 09/16/16 10:08 Aspirin (ASA) 325 mg DAILY GT 09/16/16 09:00 10/16/16 08:59 09/16/16 10:08 Atorvastatin Calcium (Lipitor) 10 mg BEDTIME ORAL 09/14/16 21:00 10/14/16 20:59 09/15/16 22:27 Calcium Carbonate (Os-Anoop) 1,250 mg THREE TIMES A DAY NG 09/15/16 13:00 10/15/16 12:59 09/16/16 12:35 Carvedilol (Coreg) 6.25 mg EVERY 12 HOURS ORAL 09/15/16 21:00 10/15/16 20:59 09/16/16 10:08 Dextrose (Dextrose 50%) STAT PRN IV Hypoglycemia 09/13/16 16:00 10/13/16 15:59 Heparin Sodium (Porcine) (Heparin 5000 units/ml) 5,000 units EVERY 12 HOURS SUBQ 09/13/16 21:00 10/13/16 20:59 Insulin Aspart (NovoLOG) Q6HR SUBQ 09/13/16 18:00 10/13/16 17:59 09/16/16 12:36 Nitroglycerin (Nitro-Bid) 1 inch TID@0600,1200,1800 TOPIC 09/15/16 18:00 10/15/16 17:59 09/16/16 12:35 Ondansetron HCl (Zofran) 4 mg Q6H PRN IVP Nausea & Vomiting 09/13/16 16:30 10/13/16 16:29 Polyethylene Glycol (Miralax) 17 gm DAILYPRN PRN ORAL Constipation 09/13/16 16:30 10/13/16 16:29 Ranitidine HCl (Zantac) 150 mg BEDTIME NG 09/15/16 21:00 10/15/16 20:59 09/15/16 22:27 Sevelamer Carbonate (Renvela) 800 mg Q6HR ORAL 09/16/16 18:00 10/16/16 17:59 LORENE RAMÍREZ Sep 16, 2016 14:55
[2016-09-16 16:00] VITALS: BP 142/54
--- NOTE | 2016-09-16 17:30 | Wound Care Consultation ---
Wound Assessment Wound Assessment #1: Wound Present on Admission: Yes New Wound: No Status Change of Wound: No Wound Location Body Site Modif: mid Wound Location Body Site: sacral Wound Type: pressure ulcer Ela Test: Does not Ela Pressure Ulcer Stage: deep tissue injury Wound Thickness: Full Thickness Wound Length: 4.5 Wound Width: 0.5 Wound Depth: utd Percent of Wound Purple/Maroon: 100 Wound Drainage Amount: None Wound Drainage Odor: None/Absent Tissue Surrounding Wound: Erythemic Wound General Appearance: Reddened Wound Assessment #2: Wound Number: #2 Wound Present on Admission: Yes New Wound: No Status Change of Wound: No Wound Location Body Site Modif: mid Wound Location Body Site: coccyx Wound Type: pressure ulcer Ela Test: Does not Ela Pressure Ulcer Stage: deep tissue injury Wound Thickness: Full Thickness Wound Length: 2.5 Wound Width: 2.0 Wound Depth: utd Percent of Wound Purple/Maroon: 100 Wound Drainage Amount: None Wound Drainage Odor: None/Absent Tissue Surrounding Wound: Erythemic Wound General Appearance: Reddened Wound Assessment #3: Wound Number: #3 Wound Present on Admission: Yes New Wound: No Status Change of Wound: No Wound Location Body Site Modif: left, lower Wound Location Body Site: abdomen Wound Type: discoloration Ela Test: Does not Ela Wound Depth: utd Percent of Wound Purple/Maroon: 100 Wound Drainage Amount: None Wound Drainage Odor: None/Absent Tissue Surrounding Wound: Intact Wound General Appearance: Reddened Wound Comment #1 Sacral DTI pressure ulcer #2 Coccyx DTI pressure ulcer #3 Right buttock DTI pressure ulcer #4 Left lower abdomen discoloration purple in color #5 Abdomen with scar tissue Recommendation -Local wound care per protocol for DTI -Turn and reposition -Keep clean and dry -Optimize nutrition -Offload both heels -Low air loss overlay mattress -Assess and f/u with MD for any changes IVETH PAGE RN Sep 16, 2016 17:30
[2016-09-16 20:00] VITALS: BP 151/54
--- NOTE | 2016-09-16 20:49 | Cardiology Progress Note ---
Assessment/Plan Assessment/Plan toxic metabolic encephalopathy cad hs o lad stent [place] acute vs sub acute pulmonary htn mr / tr sig icm may be new (2014 ischemia eval ef 53% no fixed or reversible defect then anemai thrombocytopenia sever met acidosis sss s/p ppi demential s/p small bowel surgery at [facility] 04/2016 esrd now on hd was stage 3 before severe metabolic acidosis paf hx echo noted ef decresed refusign dialysis now at this time she remain nto a candidate for invasive therapy watch plt need asa bb statin and ntp once able to be given by ngt or orally or if plt improve awiat psych evl for refusing dialysis which remain the major issue at this time Subjective Cardiovascular: Denies: irregular heart rate, lightheadedness Respiratory: Denies: shortness of breath Genitourinary: Denies: burning Subjective Past Medical History: Patient has a past medical history of Diabetes; 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 Past Surgical History: Patient has past surgical history that includes gastric bypass; hysterectomy; coronary stent placement; pacemaker placement; and PCI/ PTCA Procedure Performed Objective Last 24 Hour Vital Signs Date Time Temp Pulse Resp B/P Pulse Ox O2 Delivery O2 Flow Rate FiO2 09/16/16 20:09 Nasal Cannula 2.0 28 09/16/16 20:08 98 Nasal Cannula 2.0 28 09/16/16 20:07 64 20 Nasal Cannula 28 09/16/16 20:00 97.9 64 20 151/54 98 Room Air 09/16/16 18:47 142/60 09/16/16 16:00 98.1 63 19 142/54 94 Room Air 09/16/16 12:35 134/48 09/16/16 12:00 64 09/16/16 11:18 97.3 63 18 134/48 100 Nasal Cannula 3.0 09/16/16 10:08 62 162/58 09/16/16 10:08 59 162/58 09/16/16 08:00 63 09/16/16 07:35 62 16 Room Air 21 09/16/16 07:32 97.0 59 18 162/58 99 Nasal Cannula 3.0 09/16/16 07:29 98 Room Air 21 09/16/16 07:28 Room Air 09/16/16 05:39 165/60 09/16/16 04:00 97.1 61 18 165/60 99 Room Air 09/16/16 04:00 64 09/16/16 00:09 97.5 62 18 158/55 Nasal Cannula 2.0 98 09/16/16 00:00 62 09/15/16 22:27 64 160/60 General Appearance: no apparent distress, alert Neck: supple, other - catheter in righ nec Cardiovascular: normal rate, regular rhythm Respiratory/Chest: lungs clear Abdomen: normal bowel sounds, non tender, soft Extremities: no swelling Intake and Output 09/15/16 09/16/16 19:00 07:00 Intake Total 590 ml 560 ml Output Total 300 ml Balance 590 ml 260 ml Free Water 200 ml 200 ml Tube Feeding 390 ml 360 ml Output Urine Total 300 ml # Bowel Movements 1 Laboratory Tests Test 09/16/16 07:10 White Blood Count 10.2 K/UL (4.8-10.8) Red Blood Count 2.74 M/UL (4.20-5.40) L Hemoglobin 8.5 G/DL (12.0-16.0) L Hematocrit 26.6 % (37.0-47.0) L Mean Corpuscular Volume 97 FL (80-99) Mean Corpuscular Hemoglobin 31.1 PG (27.0-31.0) H Mean Corpuscular Hemoglobin Concent 32.1 G/DL (32.0-36.0) Red Cell Distribution Width 14.0 % (11.6-14.8) Platelet Count 64 K/UL (150-450) L Mean Platelet Volume 9.6 FL (6.5-10.1) Neutrophils (%) (Auto) % (45.0-75.0) Lymphocytes (%) (Auto) % (20.0-45.0) Monocytes (%) (Auto) % (1.0-10.0) Eosinophils (%) (Auto) % (0.0-3.0) Basophils (%) (Auto) % (0.0-2.0) Differential Total Cells Counted 100 Neutrophils % (Manual) 84 % (45-75) H Lymphocytes % (Manual) 6 % (20-45) L Monocytes % (Manual) 6 % (1-10) Eosinophils % (Manual) 3 % (0-3) Basophils % (Manual) 0 % (0-2) Band Neutrophils 1 % (0-8) Platelet Estimate Decreased L Platelet Morphology Normal Hypochromasia 2+ Anisocytosis 1+ Spherocytes 2+ Sodium Level 144 mEQ/L (135-145) Potassium Level 3.3 mEQ/L (3.4-4.9) L Chloride Level 102 mEQ/L (98-107) Carbon Dioxide Level 24 mEQ/L (20-30) Anion Gap 18 (5-15) H Blood Urea Nitrogen 97 mg/dL (7-23) H Creatinine 6.2 mg/dL (0.5-0.9) H Estimat Glomerular Filtration Rate mL/min (>60) Glucose Level 161 mg/dL (74-106) H Uric Acid 5.7 mg/dL (3.0-7.5) Calcium Level 7.0 mg/dL (8.6-10.2) L Phosphorus Level 4.8 mg/dL (2.5-4.8) Magnesium Level 1.6 mg/dL (1.7-2.5) L Total Bilirubin 0.5 mg/dL (0.0-1.2) Gamma Glutamyl Transpeptidase 21 U/L (5-36) Aspartate Amino Transf (AST/SGOT) 13 U/L (5-40) Alanine Aminotransferase (ALT/SGPT) 10 U/L (3-33) Alkaline Phosphatase 82 U/L (35-104) C-Reactive Protein, Quantitative 2.5 mg/dL (< 0.5) H Pro-B-Type Natriuretic Peptide > 31117 pg/mL (0-450) H Total Protein 4.1 g/dL (6.6-8.7) L Albumin 2.4 g/dL (3.5-5.2) L Globulin 1.7 g/dL Albumin/Globulin Ratio 1.4 (1.0-2.7) JERMAINE ROMANO 6, 2017 20:49
[2016-09-16] MEDS: OLANZapine 2.5mg tab ORAL SCH (21:24)
--- NOTE | 2016-09-16 22:58 | Consultation ---
DATE OF CONSULTATION: HISTORY OF PRESENT ILLNESS: The patient is a 76-year-old female with a history of hypokalemia, pacemaker, diabetes mellitus, rhabdomyolysis, electrolyte imbalance, cardiomyopathy, and acute kidney injury, who is being admitted to the hospital for altered level of consciousness. The patient has been presenting with waxing and waning consciousness, confusion, and has not been engaged during the evaluation. The patient has been treated for underlying medical conditions. She is currently on no psychotropic medications. Prior to the admission, her neighbor called 911 after they did not see her for few days. She was found on the floor in her faeces. During the evaluation in the emergency room, she was unable to provide any history, however, she was calm. PAST PSYCHIATRIC HISTORY: She has a history of dementia and cognitive impairment. She has been also on Klonopin 1 mg twice a day for anxiety disorder. PAST MEDICAL HISTORY: Includes coronary artery disease, status post pacemaker placement, diabetes mellitus, and hypertension. MEDICATIONS: Medications at home includes amiodarone, aspirin, vitamin D, Klonopin, Nexium, Lyrica, Crestor, and hydralazine. ALLERGIES: No known drug allergies. SUBSTANCE ABUSE HISTORY: No history of illicit drug use or alcohol. SOCIAL HISTORY: The patient is single. Lives in her own apartment. MENTAL STATUS EXAMINATION: The patient is alert and has been presenting with episodes of confusion. Mood is neutral. Affect is constricted. Congruent mood. Thought process, there is a paucity of thought content. Cognition is impaired. ASSESSMENT: Delirium and multiple medical problems including hypertension, diabetes mellitus, acute renal failure, and pacemaker placement. PLAN: The patient will be started on low-dose of olanzapine p.r.n. for and agitation. Renu Esparza M.D. DR: GLORIA JOB#: [id number] CC:
[2016-09-17 00:09] VITALS: BP 156/57
[2016-09-17] MEDS: Renvela 800mg Pkt ORAL SCH ×4 (00:09→18:41)
[2016-09-17] MEDS: NovoLOG Insulin Flexpen SUBQ SCH ×4 (00:11→18:43)
[2016-09-17 04:03] VITALS: BP 147/54
[2016-09-17] MEDS: Nitroglycerin 2% oint pkt TOPIC SCH ×3 (06:18→18:42)
[2016-09-17 08:00] VITALS: BP 130/57
[2016-09-17 08:48] LABS: ALANINE AMINOTRANSFERASE 10 U/L (3-33); ANION GAP 19 (5-15); ASPARTATE AMINO TRANSFERASE 11 U/L (5-40); CALCIUM 7.5 mg/dL (8.6-10.2); CARBON DIOXIDE 23 mEQ/L (20-30); CHLORIDE 102 mEQ/L (98-107); CREATININE 6.2 mg/dL (0.5-0.9); CRP QUANT 2.2 mg/dL (< 0.5); HEMOLYSIS 7; MAGNESIUM 1.6 mg/dL (1.7-2.5); PHOSPHORUS 4.4 mg/dL (2.5-4.8); POTASSIUM 3.1 mEQ/L (3.4-4.9); SODIUM 144 mEQ/L (135-145); TOTAL PROTEIN 4.6 g/dL (6.6-8.7)
[2016-09-17] MEDS: Calcium Carbonate 1250mg/5ml Liquid ud NG SCH ×2 (10:32→10:40)
[2016-09-17] MEDS: Carvedilol 6.25mg Tab ORAL SCH ×2 (10:32→21:17)
[2016-09-17] MEDS: Heparin 5000 units/ml inj SUBQ SCH ×2 (10:33→21:00)
--- NOTE | 2016-09-17 10:40 | Cardiology Progress Note ---
Assessment/Plan Assessment/Plan toxic metabolic encephalopathy cad hs lad stent [place] acute vs sub acute pulmonary htn mr / tr sig icm may be new (2014 ischemia eval ef 53% no fixed or reversible defect then anemai thrombocytopenia sever met acidosis sss s/p ppi demential s/p small bowel surgery at [facility] 04/2016 esrd now on hd was stage 3 before severe metabolic acidosis paf hx echo noted ef decreased refusing dialysis still tangela sinus , atrial paced at this time she is not a candidate for invasive cardaic therapy watch plt need asa bb statin and ntp once able to be given by ngt or orally or if plt improve psych noted started on med \ lab drawn late no result avialbel yet Subjective Cardiovascular: Reports: lightheadedness, Denies: chest pain, irregular heart rate Respiratory: Denies: shortness of breath Gastrointestinal/Abdominal: Denies: abdomen distended Genitourinary: Denies: no symptoms Subjective Past Medical History: Patient has a past medical history of Diabetes; 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 Past Surgical History: Patient has past surgical history that includes gastric bypass; hysterectomy; coronary stent placement; pacemaker placement; and PCI/ PTCA Procedure Performed Objective Last 24 Hour Vital Signs Date Time Temp Pulse Resp B/P Pulse Ox O2 Delivery O2 Flow Rate FiO2 09/17/16 10:32 63 130/57 09/17/16 10:32 63 130/57 09/17/16 08:00 97.7 63 17 130/57 95 Room Air 09/17/16 07:41 63 20 Nasal Cannula 2.0 28 09/17/16 07:41 Nasal Cannula 2.0 28 09/17/16 07:41 94 Nasal Cannula 2.0 28 09/17/16 06:18 147/54 09/17/16 04:03 98.3 62 19 147/54 92 Room Air 09/17/16 04:00 70 09/17/16 00:09 97.8 59 18 156/57 95 Room Air 09/17/16 00:00 75 09/16/16 21:21 64 151/60 09/16/16 20:09 Nasal Cannula 2.0 28 09/16/16 20:08 98 Nasal Cannula 2.0 28 09/16/16 20:07 64 20 Nasal Cannula 28 09/16/16 20:00 97.9 64 20 151/54 98 Room Air 09/16/16 20:00 62 09/16/16 18:47 142/60 09/16/16 16:00 70 09/16/16 16:00 98.1 63 19 142/54 94 Room Air 09/16/16 12:35 134/48 09/16/16 12:00 64 09/16/16 11:18 97.3 63 18 134/48 100 Nasal Cannula 3.0 General Appearance: alert Neck: no JVD Cardiovascular: normal rate Respiratory/Chest: lungs clear, normal breath sounds Abdomen: normal bowel sounds, non tender, soft Extremities: no swelling Intake and Output 09/16/16 09/17/16 18:59 06:59 Intake Total 30 ml 300 ml Output Total 400 ml 300 ml Balance -370 ml 0 ml Intake Oral 300 ml Tube Feeding 30 ml Output Urine Total 400 ml 300 ml # Voids 1 Laboratory Tests Test 09/17/16 07:55 Sodium Level 144 mEQ/L (135-145) Potassium Level 3.1 mEQ/L (3.4-4.9) L Chloride Level 102 mEQ/L (98-107) Carbon Dioxide Level 23 mEQ/L (20-30) Anion Gap 19 (5-15) H Blood Urea Nitrogen 98 mg/dL (7-23) H Creatinine 6.2 mg/dL (0.5-0.9) H Estimat Glomerular Filtration Rate mL/min (>60) Glucose Level 144 mg/dL (74-106) H Calcium Level 7.5 mg/dL (8.6-10.2) L Phosphorus Level 4.4 mg/dL (2.5-4.8) Magnesium Level 1.6 mg/dL (1.7-2.5) L Total Bilirubin 0.5 mg/dL (0.0-1.2) Aspartate Amino Transf (AST/SGOT) 11 U/L (5-40) Alanine Aminotransferase (ALT/SGPT) 10 U/L (3-33) Alkaline Phosphatase 81 U/L (35-104) C-Reactive Protein, Quantitative 2.2 mg/dL (< 0.5) H Total Protein 4.6 g/dL (6.6-8.7) L Albumin 2.3 g/dL (3.5-5.2) L Globulin 2.3 g/dL Albumin/Globulin Ratio 1.0 (1.0-2.7) JERMAINE ROMANO Sep 17, 2016 10:40
[2016-09-17 10:56] LABS: MEAN CORPUSCULAR HEMOGLOBIN 31.3 PG (27.0-31.0); MEAN CORPUSCULAR HGB CONC 32.2 G/DL (32.0-36.0); MEAN CORPUSCULAR VOLUME 97 FL (80-99); PLATELET COUNT 83 K/UL (150-450); RED CELL DISTRIBUTION WIDTH 13.7 % (11.6-14.8); WHITE BLOOD COUNT 9.7 K/UL (4.8-10.8)
--- NOTE | 2016-09-17 11:11 | General Progress Note ---
Assessment/Plan Status: unchanged Assessment/Plan status; JENNIFER (acute kidney injury)- Underlying CKD Severe Hyperkalemia resolved Possible Rhabdomyolysis Pace Maker High Toponin I Plan: Mag , K , supplement given- still refusing HD On Nitro- Asprin, Ca Chann Blkrs Phos binders to treat high Phos and low Calcium Monitor renal parameters HD : refused by patient suggest DC ? Subjective ROS Limited/Unobtainable: No Constitutional: Reports: malaise, weakness Allergies: Coded Allergies: NO KNOWN ALLERGIES (Verified Allergy, Unknown, 09/12/16) Objective Last 24 Hour Vital Signs Date Time Temp Pulse Resp B/P Pulse Ox O2 Delivery O2 Flow Rate FiO2 09/17/16 10:32 63 130/57 09/17/16 10:32 63 130/57 09/17/16 08:00 69 09/17/16 08:00 97.7 63 17 130/57 95 Room Air 09/17/16 07:41 63 20 Nasal Cannula 2.0 28 09/17/16 07:41 Nasal Cannula 2.0 28 09/17/16 07:41 94 Nasal Cannula 2.0 28 09/17/16 06:18 147/54 09/17/16 04:03 98.3 62 19 147/54 92 Room Air 09/17/16 04:00 70 09/17/16 00:09 97.8 59 18 156/57 95 Room Air 09/17/16 00:00 75 09/16/16 21:21 64 151/60 09/16/16 20:09 Nasal Cannula 2.0 28 09/16/16 20:08 98 Nasal Cannula 2.0 28 09/16/16 20:07 64 20 Nasal Cannula 28 09/16/16 20:00 97.9 64 20 151/54 98 Room Air 09/16/16 20:00 62 09/16/16 18:47 142/60 09/16/16 16:00 70 09/16/16 16:00 98.1 63 19 142/54 94 Room Air 09/16/16 12:35 134/48 09/16/16 12:00 64 09/16/16 11:18 97.3 63 18 134/48 100 Nasal Cannula 3.0 Intake and Output 09/16/16 09/17/16 19:00 07:00 Intake Total 300 ml Output Total 400 ml 300 ml Balance -400 ml 0 ml Intake Oral 300 ml Output Urine Total 400 ml 300 ml # Voids 1 Laboratory Tests 09/17/16 07:55: Sodium Level 144, Potassium Level 3.1L, Chloride Level 102, Carbon Dioxide Level 23, Anion Gap 19H, Blood Urea Nitrogen 98H, Creatinine 6.2H, Estimat Glomerular Filtration Rate , Glucose Level 144H, Calcium Level 7.5L, Phosphorus Level 4.4, Magnesium Level 1.6L, Total Bilirubin 0.5, Aspartate Amino Transf ( AST/SGOT) 11, Alanine Aminotransferase (ALT/SGPT) 10, Alkaline Phosphatase 81, C -Reactive Protein, Quantitative 2.2H, Total Protein 4.6L, Albumin 2.3L, Globulin 2.3, Albumin/Globulin Ratio 1.0 09/17/16 10:30: White Blood Count 9.7, Red Blood Count 2.80L, Hemoglobin 8.7L, Hematocrit 27.2L , Mean Corpuscular Volume 97, Mean Corpuscular Hemoglobin 31.3H, Mean Corpuscular Hemoglobin Concent 32.2, Red Cell Distribution Width 13.7, Platelet Count 83L, Mean Platelet Volume 9.0, Neutrophils (%) (Auto) , Lymphocytes (%) ( Auto) , Monocytes (%) (Auto) , Eosinophils (%) (Auto) , Basophils (%) (Auto) , Neutrophils % (Manual) [Pending], Lymphocytes % (Manual) [Pending], Platelet Estimate [Pending], Platelet Morphology [Pending], Erythrocyte Sedimentation Rate [Pending] Height (Feet): 5 Height (Inches): 6.00 Weight (Pounds): 139 General Appearance: no apparent distress, lethargic, confused Objective other PE not changed RICKI SALGADO Sep 17, 2016 11:11
[2016-09-17] MEDS ORDERED: KCl 10% 40mEq/30ml liquid NG ONE (11:30)
[2016-09-17 11:33] LABS: BAND NEUTROPHILS % (MANUAL) 0 % (0-8); BASOPHILS % (MANUAL) 0 % (0-2); EOSINOPHILS % (MANUAL) 3 % (0-3); LYMPHOCYTES % (MANUAL) 15 % (20-45); NEUTROPHILS % (MANUAL) 74 % (45-75); PLATELET ESTIMATE DECREASED; PLATELET MORPHOLOGY NORMAL; TOTAL CELLS COUNTED 100
[2016-09-17 11:34] LABS: HYPOCHROMASIA 1+
[2016-09-17 12:00] VITALS: BP 132/74
[2016-09-17 12:00] LABS: ERYTHROCYTE SEDIMENTATION RATE 51 MM/HR (0-30)
[2016-09-17] MEDS: Calcium Carbonate 1250mg/5ml Liquid ud ORAL SCH ×2 (12:37→18:42)
[2016-09-17] MEDS ORDERED: RENVELA0.8 GM ORAL (12:58)
[2016-09-17] MEDS ORDERED: OLANZAPINE2.5 MG ORAL (12:58)
--- NOTE | 2016-09-17 13:00 | Pulmonology Progress Note ---
Assessment/Plan Problems: (1) Toxic metabolic encephalopathy (2) Acute on chronic renal insufficiency (3) Non-STEMI (non-ST elevated myocardial infarction) (4) Diabetes mellitus (5) Pacemaker (6) Advanced dementia (7) Non-compliance (8) Cardiomyopathy Assessment/Plan pt refusing HD son can't take care of her at home any more will need placement called psych evaluation fo episodes of agitation dc planning in process continue current med Subjective ROS Limited/Unobtainable: No Interval Events: doing better Allergies: Coded Allergies: NO KNOWN ALLERGIES (Verified Allergy, Unknown, 09/12/16) Objective Last 24 Hour Vital Signs Date Time Temp Pulse Resp B/P Pulse Ox O2 Delivery O2 Flow Rate FiO2 09/17/16 12:25 130/57 09/17/16 10:32 63 130/57 09/17/16 10:32 63 130/57 09/17/16 08:00 69 09/17/16 08:00 97.7 63 17 130/57 95 Room Air 09/17/16 07:41 63 20 Nasal Cannula 2.0 28 09/17/16 07:41 Nasal Cannula 2.0 28 09/17/16 07:41 94 Nasal Cannula 2.0 28 09/17/16 06:18 147/54 09/17/16 04:03 98.3 62 19 147/54 92 Room Air 09/17/16 04:00 70 09/17/16 00:09 97.8 59 18 156/57 95 Room Air 09/17/16 00:00 75 09/16/16 21:21 64 151/60 09/16/16 20:09 Nasal Cannula 2.0 28 09/16/16 20:08 98 Nasal Cannula 2.0 28 09/16/16 20:07 64 20 Nasal Cannula 28 09/16/16 20:00 97.9 64 20 151/54 98 Room Air 09/16/16 20:00 62 09/16/16 18:47 142/60 09/16/16 16:00 70 09/16/16 16:00 98.1 63 19 142/54 94 Room Air Intake and Output 09/16/16 09/17/16 19:00 07:00 Intake Total 300 ml Output Total 400 ml 300 ml Balance -400 ml 0 ml Intake Oral 300 ml Output Urine Total 400 ml 300 ml # Voids 1 General Appearance: WD/WN HEENT: normocephalic, atraumatic Breasts: no masses Cardiovascular: normal peripheral pulses Abdomen: normal bowel sounds, soft, non tender Genitourinary: normal external genitalia Skin: no lesions 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 Laboratory Tests 09/17/16 07:55: Sodium Level 144, Potassium Level 3.1L, Chloride Level 102, Carbon Dioxide Level 23, Anion Gap 19H, Blood Urea Nitrogen 98H, Creatinine 6.2H, Estimat Glomerular Filtration Rate , Glucose Level 144H, Calcium Level 7.5L, Phosphorus Level 4.4, Magnesium Level 1.6L, Total Bilirubin 0.5, Aspartate Amino Transf ( AST/SGOT) 11, Alanine Aminotransferase (ALT/SGPT) 10, Alkaline Phosphatase 81, C -Reactive Protein, Quantitative 2.2H, Total Protein 4.6L, Albumin 2.3L, Globulin 2.3, Albumin/Globulin Ratio 1.0 09/17/16 10:30: White Blood Count 9.7, Red Blood Count 2.80L, Hemoglobin 8.7L, Hematocrit 27.2L , Mean Corpuscular Volume 97, Mean Corpuscular Hemoglobin 31.3H, Mean Corpuscular Hemoglobin Concent 32.2, Red Cell Distribution Width 13.7, Platelet Count 83L, Mean Platelet Volume 9.0, Neutrophils (%) (Auto) , Lymphocytes (%) ( Auto) , Monocytes (%) (Auto) , Eosinophils (%) (Auto) , Basophils (%) (Auto) , Differential Total Cells Counted 100, Neutrophils % (Manual) 74, Lymphocytes % ( Manual) 15L, Monocytes % (Manual) 8, Eosinophils % (Manual) 3, Basophils % ( Manual) 0, Band Neutrophils 0, Platelet Estimate DecreasedL, Platelet Morphology Normal, Hypochromasia 1+, Erythrocyte Sedimentation Rate 51H Current Medications Medications (Trade) Dose Ordered Sig/Serafin Route PRN Reason Start Time Stop Time Status Last Admin Dose Admin Acetaminophen (Tylenol) 650 mg Q4H PRN ORAL Fever 09/13/16 16:30 10/13/16 16:29 09/17/16 00:09 Acetaminophen (Tylenol) 650 mg Q4H PRN ORAL Mild Pain (Pain Scale 1-3) 09/13/16 16:30 10/13/16 16:29 Albuterol/ Ipratropium (DuoNeb 0.5-3(2.5)mg/3ml) 3 ml Q4H PRN HHN Shortness of Breath 09/13/16 16:30 09/18/16 16:29 Amlodipine Besylate (Norvasc) 5 mg DAILY ORAL 09/18/16 09:00 10/18/16 08:59 Aspirin (ASA) 325 mg DAILY ORAL 09/18/16 09:00 10/18/16 08:59 Atorvastatin Calcium (Lipitor) 10 mg BEDTIME ORAL 09/14/16 21:00 10/14/16 20:59 09/16/16 21:21 Calcium Carbonate (Os-Anoop) 1,250 mg THREE TIMES A DAY ORAL 09/17/16 13:00 10/17/16 12:59 Carvedilol (Coreg) 6.25 mg EVERY 12 HOURS ORAL 09/15/16 21:00 10/15/16 20:59 09/17/16 10:32 Dextrose (Dextrose 50%) STAT PRN IV Hypoglycemia 09/13/16 16:00 10/13/16 15:59 Heparin Sodium (Porcine) (Heparin 5000 units/ml) 5,000 units EVERY 12 HOURS SUBQ 09/13/16 21:00 10/13/16 20:59 Insulin Aspart (NovoLOG) Q6HR SUBQ 09/13/16 18:00 10/13/16 17:59 09/17/16 12:30 Magnesium Sulfate (Magnesium Sulfate 1gm/100ml) 100 ml @ 100 mls/hr Q1H IVPB 09/17/16 12:30 09/17/16 14:29 09/17/16 12:25 Nitroglycerin (Nitro-Bid) 1 inch TID@0600,1200,1800 TOPIC 09/15/16 18:00 10/15/16 17:59 09/17/16 12:25 Olanzapine (ZyPREXA) 2.5 mg BEDTIME ORAL 09/16/16 21:00 10/16/16 20:59 09/16/16 21:24 Ondansetron HCl (Zofran) 4 mg Q6H PRN IVP Nausea & Vomiting 09/13/16 16:30 10/13/16 16:29 Polyethylene Glycol (Miralax) 17 gm DAILYPRN PRN ORAL Constipation 09/13/16 16:30 10/13/16 16:29 Ranitidine HCl (Zantac) 150 mg BEDTIME ORAL 09/17/16 21:00 10/17/16 20:59 Sevelamer Carbonate 800 mg 800 mg TIPC ORAL 09/17/16 13:00 10/17/16 12:59 09/17/16 12:25 LORENE RAMÍREZ Sep 17, 2016 13:00
[2016-09-17 16:00] VITALS: BP 146/57
[2016-09-17] MEDS ORDERED: Sterile Water Irrig 1000ml IRRIG ONE (17:56)
[2016-09-17 20:00] VITALS: BP 142/58
--- NOTE | 2016-09-17 20:17 | General Progress Note ---
Assessment/Plan Problem List: (1) NSTEMI (non-ST elevated myocardial infarction) ICD Codes: I21.4 - Non-ST elevation (NSTEMI) myocardial infarction SNOMED: 68484101 (2) Acute systolic heart failure Assessment & Plan: EF 35-40% ICD Codes: I50.21 - Acute systolic (congestive) heart failure SNOMED: 981691894 (3) Toxic metabolic encephalopathy ICD Codes: G92 - Toxic encephalopathy SNOMED: 337280722 (4) JENNIFER (acute kidney injury) ICD Codes: N17.9 - Acute kidney failure, unspecified SNOMED: 42753055 (5) Hyperkalemia ICD Codes: E87.5 - Hyperkalemia SNOMED: 98259527 (6) High anion gap metabolic acidosis ICD Codes: E87.2 - Acidosis SNOMED: 02472558 (7) Pacemaker ICD Codes: Z95.0 - Presence of cardiac pacemaker SNOMED: 083914302, 411082464 (8) Diabetes mellitus ICD Codes: E11.9 - Type 2 diabetes mellitus without complications SNOMED: 13823118 Status: stable Assessment/Plan Utox positive for opioids and barbiturates which may be likely culprits of encephalopathy. Unclear if pt had overdosed and whether it is intentional or accidental Etiology of JENNIFER may be pre-renal 2/2 dehydration (found down x 2 days vs cardiorenal (given new found cardiomgyopathy and elevated BNP), component of rhabdomylosis, and/or ATN Pt also with NSTEMI, EF 35-50%--acute vs subacute. Has h/o CAD w/ stent to LAD Appreciate pulm/critical care, nephrology, neurology, cardiology rec's s/p temporary HD line placement on 09/12/16 HD initiated on 09/12/16; cont HD per renal--currently refusing but unclear if she clearly understands risks/benefits as she is not able to articulate it Trend lytes and Cr Avoid nephrotoxic agents Plan for medical mgmt of NSTEMI as pt not a candidate for invasive therapy per cardiology Cont ASA, statin, coreg. 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 Disposition: Once the patient is stable to leave the hospital, I anticipate the patient will likely be discharged to the following environment: SNF I spent 38 minutes on this patient's case, and 22 minutes were dedicated to counseling and/or care coordination. Discussed with patient/family, nursing staff, SW/CM, pulm, cardiology, nephrology regarding clinical status, treatment course, and disposition planning. Time of note may not reflect time of encounter. Subjective Date patient seen: Sep 17, 2016 Time patient seen: 11:11 ROS Limited/Unobtainable: No Constitutional: Reports: no symptoms HEENT: Reports: no symptoms Cardiovascular: Reports: no symptoms Respiratory: Reports: no symptoms Gastrointestinal/Abdominal: Reports: no symptoms Genitourinary: Reports: no symptoms Neurologic/Psychiatric: Reports: no symptoms Endocrine: Reports: no symptoms Hematologic/Lymphatic: Reports: no symptoms Allergies: Coded Allergies: NO KNOWN ALLERGIES (Verified Allergy, Unknown, 09/12/16) All Systems: reviewed and negative except above Subjective More awake, alert. Cooperative off restraints. Traore removed and voiding on own. NGT removed and tolerating puree diet Cont to refuse HD Discussed w/ son who would like pt placed at SNF Objective Last 24 Hour Vital Signs Date Time Temp Pulse Resp B/P Pulse Ox O2 Delivery O2 Flow Rate FiO2 09/17/16 18:42 146/62 09/17/16 16:00 97.9 64 18 146/57 93 Room Air 09/17/16 12:25 130/57 09/17/16 12:00 68 09/17/16 12:00 97.0 76 16 132/74 94 Room Air 09/17/16 10:32 63 130/57 09/17/16 10:32 63 130/57 09/17/16 08:00 69 09/17/16 08:00 97.7 63 17 130/57 95 Room Air 09/17/16 07:41 63 20 Nasal Cannula 2.0 28 09/17/16 07:41 Nasal Cannula 2.0 28 09/17/16 07:41 94 Nasal Cannula 2.0 28 09/17/16 06:18 147/54 09/17/16 04:03 98.3 62 19 147/54 92 Room Air 09/17/16 04:00 70 09/17/16 00:09 97.8 59 18 156/57 95 Room Air 09/17/16 00:00 75 09/16/16 21:21 64 151/60 Intake and Output 09/16/16 09/17/16 18:59 06:59 Intake Total 30 ml 300 ml Output Total 400 ml 300 ml Balance -370 ml 0 ml Intake Oral 300 ml Tube Feeding 30 ml Output Urine Total 400 ml 300 ml # Voids 1 Laboratory Tests 09/17/16 07:55: Sodium Level 144, Potassium Level 3.1L, Chloride Level 102, Carbon Dioxide Level 23, Anion Gap 19H, Blood Urea Nitrogen 98H, Creatinine 6.2H, Estimat Glomerular Filtration Rate , Glucose Level 144H, Calcium Level 7.5L, Phosphorus Level 4.4, Magnesium Level 1.6L, Total Bilirubin 0.5, Aspartate Amino Transf ( AST/SGOT) 11, Alanine Aminotransferase (ALT/SGPT) 10, Alkaline Phosphatase 81, C -Reactive Protein, Quantitative 2.2H, Total Protein 4.6L, Albumin 2.3L, Globulin 2.3, Albumin/Globulin Ratio 1.0 09/17/16 10:30: White Blood Count 9.7, Red Blood Count 2.80L, Hemoglobin 8.7L, Hematocrit 27.2L , Mean Corpuscular Volume 97, Mean Corpuscular Hemoglobin 31.3H, Mean Corpuscular Hemoglobin Concent 32.2, Red Cell Distribution Width 13.7, Platelet Count 83L, Mean Platelet Volume 9.0, Neutrophils (%) (Auto) , Lymphocytes (%) ( Auto) , Monocytes (%) (Auto) , Eosinophils (%) (Auto) , Basophils (%) (Auto) , Differential Total Cells Counted 100, Neutrophils % (Manual) 74, Lymphocytes % ( Manual) 15L, Monocytes % (Manual) 8, Eosinophils % (Manual) 3, Basophils % ( Manual) 0, Band Neutrophils 0, Platelet Estimate DecreasedL, Platelet Morphology Normal, Hypochromasia 1+, Erythrocyte Sedimentation Rate 51H Height (Feet): 5 Height (Inches): 6.00 Weight (Pounds): 139 Objective General: awake, alert Head: normocephalic, without obvious abnormality, atraumatic Eyes: conjunctivae/corneas clear. PERRL, EOM's intact Throat: lips, mucosa, and tongue normal. MMM Neck: supple, symmetrical, trachea midline, and no JVD Lungs: clear to auscultation bilaterally Heart: regular rate and rhythm, S1, S2 normal, no murmur, click, rub or gallop Abdomen: soft, non-tender, non-distended, bowel sounds normal; no masses or organomegaly Extremities: extremities normal, atraumatic, no cyanosis or edema Pulses: 2+ and symmetric Skin: skin color, texture, turgor normal; no rashes or lesions Neurologic: no focal deficits Rubia Ma M.D. Sep 17, 2016 20:17
[2016-09-17] MEDS ORDERED: NovoLOG Insulin Flexpen SUBQ SCH (21:00)
[2016-09-17] MEDS: OLANZapine 2.5mg tab ORAL SCH (21:17)
[2016-09-18] VITALS: BP 152/56
[2016-09-18] MEDS ORDERED: DuoNeb 0.5-3(2.5)mg/3ml neb HHN PRN (00:30)
[2016-09-18 04:00] VITALS: BP_SYST 148; BP_SYST 168; BP_DIAS 61
[2016-09-18] MEDS: Nitroglycerin 2% oint pkt TOPIC SCH ×3 (06:24→17:23)
[2016-09-18] MEDS: NovoLOG Insulin Flexpen SUBQ SCH ×4 (07:00→20:54)
[2016-09-18 08:01] VITALS: BP 158/68
[2016-09-18] MEDS ORDERED: Heparin 5000 units/ml inj SUBQ SCH (09:00)
[2016-09-18] MEDS: Carvedilol 6.25mg Tab ORAL SCH ×2 (09:00→20:53)
[2016-09-18] MEDS: Calcium Carbonate 1250mg/5ml Liquid ud ORAL SCH ×3 (09:14→17:22)
[2016-09-18] MEDS: Renvela 800mg Pkt ORAL SCH ×3 (09:17→17:22)
[2016-09-18 12:15] VITALS: BP 136/59
--- NOTE | 2016-09-18 14:19 | General Progress Note ---
Assessment/Plan Status: unchanged Status Narrative agreed to dialysis Assessment/Plan status; JENNIFER (acute kidney injury)- Underlying CKD Severe Hyperkalemia resolved Possible Rhabdomyolysis Pace Maker High Toponin I Plan: Mag , K , supplement given- On Nitro- Asprin, Ca Chann Blkrs Phos binders to treat high Phos and low Calcium Monitor renal parameters HD : in process now suggest DC planning Subjective ROS Limited/Unobtainable: No Constitutional: Reports: weakness Allergies: Coded Allergies: NO KNOWN ALLERGIES (Verified Allergy, Unknown, 09/12/16) Objective Last 24 Hour Vital Signs Date Time Temp Pulse Resp B/P Pulse Ox O2 Delivery O2 Flow Rate FiO2 09/18/16 12:15 97.7 68 18 136/59 98 Room Air 09/18/16 11:40 Room Air 09/18/16 08:01 97.6 63 21 158/68 97 Room Air 09/18/16 07:43 58 16 Room Air 21 09/18/16 07:43 Room Air 21 09/18/16 07:43 94 Room Air 21 09/18/16 06:24 148/61 09/18/16 04:00 97.2 65 18 148/61 97 Room Air 09/18/16 00:00 97.0 65 20 152/56 95 Room Air 09/17/16 21:17 61 142/60 09/17/16 20:00 96.6 61 18 142/58 96 Room Air 09/17/16 19:30 96 Room Air 21 09/17/16 19:30 61 20 Room Air 21 09/17/16 19:30 Room Air 21 09/17/16 18:42 146/62 09/17/16 16:00 97.9 64 18 146/57 93 Room Air Intake and Output 09/17/16 09/18/16 19:00 07:00 Intake Total 340 ml 180 ml Output Total 1000 ml Balance 340 ml -820 ml Intake Oral 340 ml 180 ml Output Urine Total 1000 ml # Voids 2 2 Height (Feet): 5 Height (Inches): 6.00 Weight (Pounds): 137 General Appearance: no apparent distress Cardiovascular: normal rate Respiratory/Chest: decreased breath sounds Abdomen: soft Objective other PE not changed RICKI SALGADO Sep 18, 2016 14:19
--- NOTE | 2016-09-18 14:44 | General Progress Note ---
Assessment/Plan Problem List: (1) NSTEMI (non-ST elevated myocardial infarction) ICD Codes: I21.4 - Non-ST elevation (NSTEMI) myocardial infarction SNOMED: 32047872 (2) Acute systolic heart failure Assessment & Plan: EF 35-40% ICD Codes: I50.21 - Acute systolic (congestive) heart failure SNOMED: 296478309 (3) Toxic metabolic encephalopathy ICD Codes: G92 - Toxic encephalopathy SNOMED: 512734687 (4) JENNIFER (acute kidney injury) ICD Codes: N17.9 - Acute kidney failure, unspecified SNOMED: 14439506 (5) Hyperkalemia ICD Codes: E87.5 - Hyperkalemia SNOMED: 48368563 (6) High anion gap metabolic acidosis ICD Codes: E87.2 - Acidosis SNOMED: 23275019 (7) Pacemaker ICD Codes: Z95.0 - Presence of cardiac pacemaker SNOMED: 043457415, 384550909 (8) Diabetes mellitus ICD Codes: E11.9 - Type 2 diabetes mellitus without complications SNOMED: 16855236 Status: stable Assessment/Plan Utox positive for opioids and barbiturates which may be likely culprits of encephalopathy. Unclear if pt had overdosed and whether it is intentional or accidental Etiology of JENNIFER may be pre-renal 2/2 dehydration (found down x 2 days vs cardiorenal (given new found cardiomgyopathy and elevated BNP), component of rhabdomylosis, and/or ATN Pt also with NSTEMI, EF 35-50%--acute vs subacute. Has h/o CAD w/ stent to LAD Appreciate pulm/critical care, nephrology, neurology, cardiology rec's s/p temporary HD line placement on 09/12/16 HD initiated on 09/12/16; cont HD per renal--pt now agreeable to HD after length discussion Trend lytes and Cr Avoid nephrotoxic agents Plan for medical mgmt of NSTEMI as pt not a candidate for invasive therapy per cardiology Cont ASA, statin, coreg. 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 Disposition: Once the patient is stable to leave the hospital, I anticipate the patient will likely be discharged to the following environment: SNF I spent 38 minutes on this patient's case, and 22 minutes were dedicated to counseling and/or care coordination. Discussed with patient/family, nursing staff, SW/CM, pulm, cardiology, nephrology regarding clinical status, treatment course, and disposition planning. Time of note may not reflect time of encounter. Subjective Date patient seen: Sep 18, 2016 Time patient seen: 14:43 ROS Limited/Unobtainable: No Constitutional: Reports: no symptoms HEENT: Reports: no symptoms Cardiovascular: Reports: no symptoms Respiratory: Reports: no symptoms Gastrointestinal/Abdominal: Reports: no symptoms Genitourinary: Reports: no symptoms Neurologic/Psychiatric: Reports: no symptoms Endocrine: Reports: no symptoms Hematologic/Lymphatic: Reports: no symptoms Allergies: Coded Allergies: NO KNOWN ALLERGIES (Verified Allergy, Unknown, 09/12/16) All Systems: reviewed and negative except above Subjective More awake, alert. Cooperative off restraints. Traore removed and voiding on own. NGT removed and tolerating puree diet Agreeable to HD now Discussed w/ son who would like pt placed at SNF Objective Last 24 Hour Vital Signs Date Time Temp Pulse Resp B/P Pulse Ox O2 Delivery O2 Flow Rate FiO2 09/18/16 12:15 97.7 68 18 136/59 98 Room Air 09/18/16 11:40 Room Air 09/18/16 08:01 97.6 63 21 158/68 97 Room Air 09/18/16 07:43 58 16 Room Air 09/18/16 07:43 Room Air 21 09/18/16 07:43 94 Room Air 09/18/16 06:24 148/61 09/18/16 04:00 97.2 65 18 148/61 97 Room Air 09/18/16 00:00 97.0 65 20 152/56 95 Room Air 09/17/16 21:17 61 142/60 09/17/16 20:00 96.6 61 18 142/58 96 Room Air 09/17/16 19:30 96 Room Air 21 09/17/16 19:30 61 20 Room Air 21 09/17/16 19:30 Room Air 21 09/17/16 18:42 146/62 09/17/16 16:00 97.9 64 18 146/57 93 Room Air Intake and Output 09/17/16 09/18/16 19:00 07:00 Intake Total 340 ml 180 ml Output Total 1000 ml Balance 340 ml -820 ml Intake Oral 340 ml 180 ml Output Urine Total 1000 ml # Voids 2 2 Height (Feet): 5 Height (Inches): 6.00 Weight (Pounds): 137 Objective General: awake, alert Head: normocephalic, without obvious abnormality, atraumatic Eyes: conjunctivae/corneas clear. PERRL, EOM's intact Throat: lips, mucosa, and tongue normal. MMM Neck: supple, symmetrical, trachea midline, and no JVD Lungs: clear to auscultation bilaterally Heart: regular rate and rhythm, S1, S2 normal, no murmur, click, rub or gallop Abdomen: soft, non-tender, non-distended, bowel sounds normal; no masses or organomegaly Extremities: extremities normal, atraumatic, no cyanosis or edema Pulses: 2+ and symmetric Skin: skin color, texture, turgor normal; no rashes or lesions Neurologic: no focal deficits Rubia Ma M.D. Sep 18, 2016 14:44
[2016-09-18 16:00] VITALS: BP 133/56
--- NOTE | 2016-09-18 16:15 | Pulmonology Progress Note ---
Assessment/Plan Problems: (1) Toxic metabolic encephalopathy (2) Acute on chronic renal insufficiency (3) Non-STEMI (non-ST elevated myocardial infarction) (4) Diabetes mellitus (5) Pacemaker (6) Advanced dementia (7) Non-compliance (8) Cardiomyopathy Assessment/Plan pt refusing HD no new complians will need placement called psych evaluation fo episodes of agitation dc planning in process continue current med Subjective ROS Limited/Unobtainable: No Allergies: Coded Allergies: NO KNOWN ALLERGIES (Verified Allergy, Unknown, 09/12/16) Objective Last 24 Hour Vital Signs Date Time Temp Pulse Resp B/P Pulse Ox O2 Delivery O2 Flow Rate FiO2 09/18/16 14:48 Room Air 09/18/16 12:15 97.7 68 18 136/59 98 Room Air 09/18/16 11:40 Room Air 09/18/16 08:01 97.6 63 21 158/68 97 Room Air 09/18/16 07:43 58 16 Room Air 09/18/16 07:43 Room Air 21 09/18/16 07:43 94 Room Air 09/18/16 06:24 148/61 09/18/16 04:00 97.2 65 18 148/61 97 Room Air 09/18/16 00:00 97.0 65 20 152/56 95 Room Air 09/17/16 21:17 61 142/60 09/17/16 20:00 96.6 61 18 142/58 96 Room Air 09/17/16 19:30 96 Room Air 21 09/17/16 19:30 61 20 Room Air 21 09/17/16 19:30 Room Air 21 09/17/16 18:42 146/62 Intake and Output 09/17/16 09/18/16 19:00 07:00 Intake Total 340 ml 180 ml Output Total 1000 ml Balance 340 ml -820 ml Intake Oral 340 ml 180 ml Output Urine Total 1000 ml # Voids 2 2 Objective HEENT: normocephalic Respiratory/Chest: chest wall non-tender, lungs clear Cardiovascular: normal peripheral pulses, normal rate Abdomen: normal bowel sounds, soft, non tender Extremities: no cyanosis, no clubbing Skin: no ulcers 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 Musculoskeletal: normal muscle bulk, other - wound vac attached to Left leg stump Current Medications Medications (Trade) Dose Ordered Sig/Serafin Route PRN Reason Start Time Stop Time Status Last Admin Dose Admin Acetaminophen (Tylenol) 650 mg Q4H PRN ORAL Fever 09/18/16 00:30 10/18/16 00:29 Acetaminophen (Tylenol) 650 mg Q4H PRN ORAL Mild Pain (Pain Scale 1-3) 09/18/16 00:30 10/18/16 00:29 Albuterol/ Ipratropium (DuoNeb 0.5-3(2.5)mg/3ml) 3 ml Q4H PRN HHN Shortness of Breath 09/18/16 00:30 09/23/16 00:29 Amlodipine Besylate (Norvasc) 5 mg DAILY ORAL 09/18/16 09:00 10/18/16 08:59 Aspirin (ASA) 325 mg DAILY ORAL 09/18/16 09:00 10/18/16 08:59 09/18/16 09:13 Atorvastatin Calcium (Lipitor) 10 mg BEDTIME ORAL 09/18/16 21:00 10/18/16 20:59 Calcium Carbonate (Os-Anoop) 1,250 mg THREE TIMES A DAY ORAL 09/18/16 09:00 10/18/16 08:59 09/18/16 12:06 Carvedilol (Coreg) 6.25 mg EVERY 12 HOURS ORAL 09/18/16 09:00 10/18/16 08:59 Dextrose (Dextrose 50%) STAT PRN IV Hypoglycemia 09/18/16 16:00 10/18/16 15:59 Insulin Aspart (NovoLOG) BEFORE MEALS AND HS SUBQ 09/18/16 06:30 10/18/16 06:29 09/18/16 12:14 Nitroglycerin (Nitro-Bid) 1 inch TID@0600,1200,1800 TOPIC 09/18/16 06:00 10/18/16 05:59 09/18/16 06:24 Olanzapine (ZyPREXA) 2.5 mg BEDTIME ORAL 09/18/16 21:00 10/18/16 20:59 Ondansetron HCl (Zofran) 4 mg Q6H PRN IVP Nausea & Vomiting 09/17/16 22:30 10/17/16 22:29 Polyethylene Glycol (Miralax) 17 gm DAILYPRN PRN ORAL Constipation 09/18/16 16:30 10/18/16 16:29 Ranitidine HCl (Zantac) 150 mg BEDTIME ORAL 09/18/16 21:00 10/18/16 20:59 Sevelamer Carbonate (Renvela) 800 mg TIPC ORAL 09/18/16 09:00 10/18/16 08:59 09/18/16 12:06 LORENE RAMÍREZ Sep 18, 2016 16:15
[2016-09-18] MEDS ORDERED: Miralax 17gm pkt ORAL PRN (16:30)
[2016-09-18 20:00] VITALS: BP 128/35
[2016-09-18] MEDS: OLANZapine 2.5mg tab ORAL SCH (20:53)
[2016-09-19] VITALS (11 sets, daily range): BP systolic 130–180; BP diastolic 51–87
--- NOTE | 2016-09-19 04:28 | Progress Note ---
DATE: 09/18/2016 SUBJECTIVE: The patient is more alert and awake and cooperative. The patient was more engaged during the evaluation, was able to answer to simple questions. She continues to refuse . She is off of restraints currently and is less anxious and agitated. MENTAL STATUS EXAMINATION: The patient is alert and oriented times self and place. Mood is neutral. Affect is blunted. Congruent with mood. Thought process is concrete. Thought content, no suicidal or homicidal ideation. Cognition is still impaired. ASSESSMENT: Delirium due to underlying medical condition, which is resolving. PLAN: We will continue the current medications, no medication changes. Renu Esparza M.D. DR: ANAID JOB#: [id number] CC:
[2016-09-19] MEDS: Nitroglycerin 2% oint pkt TOPIC SCH ×3 (05:49→17:27)
[2016-09-19] MEDS: NovoLOG Insulin Flexpen SUBQ SCH ×4 (06:15→21:17)
[2016-09-19 07:00] LABS: INR 1.1 (0.9-1.1); PROTHROMBIN TIME 11.4 SEC (9.30-11.50)
[2016-09-19] MEDS ORDERED: Heparin Sod 1000 units/ml 10ml ONE (08:58)
[2016-09-19] MEDS ORDERED: Heparin 2000 units/Ns 1000ml 1,000 ML ONE (08:58)
[2016-09-19] MEDS ORDERED: Sodium Bicarbonate 8.4% 50ml Inj ONE (08:58)
[2016-09-19] MEDS ORDERED: Lidocaine 1% 10mg/ml/Epi 0.005mg/ml 30ml vial INJ ONE (08:58)
[2016-09-19] MEDS: Carvedilol 6.25mg Tab ORAL SCH ×2 (09:47→21:15)
[2016-09-19] MEDS: Calcium Carbonate 1250mg/5ml Liquid ud ORAL SCH ×3 (09:47→17:27)
[2016-09-19] MEDS: Renvela 800mg Pkt ORAL SCH ×3 (09:47→17:26)
[2016-09-19 12:00] LABS: HEPATITIS BE ANTIGEN/CEDARS NONREACTIVE (NONREACTIVE); HEPATITIS C VIRUS AB/CEDARS 0.07 S/CO (<0.80)
--- NOTE | 2016-09-19 12:16 | General Progress Note ---
Assessment/Plan Status: stable Status Narrative seen walking with PT Assessment/Plan status; JENNIFER (acute kidney injury)- Underlying CKD Severe Hyperkalemia resolved Possible Rhabdomyolysis Pace Maker High Toponin I Plan: Mag , K , supplement given- On Nitro- Asprin, Ca Chann Blkrs Phos binders to treat high Phos and low Calcium Monitor renal parameters HD :done 09/18 repear 09/20 suggest DC planning Subjective ROS Limited/Unobtainable: No Constitutional: Reports: weakness Allergies: Coded Allergies: NO KNOWN ALLERGIES (Verified Allergy, Unknown, 09/12/16) Objective Last 24 Hour Vital Signs Date Time Temp Pulse Resp B/P Pulse Ox O2 Delivery O2 Flow Rate FiO2 09/19/16 11:34 97.0 62 15 138/87 100 Room Air 09/19/16 09:47 64 150/60 09/19/16 09:47 64 150/60 09/19/16 08:12 97.3 64 15 150/60 96 Room Air 09/19/16 05:49 130/60 09/19/16 04:00 98.1 66 20 130/60 96 Room Air 09/19/16 00:00 98.1 64 16 155/55 95 Room Air 09/18/16 20:53 64 133/56 09/18/16 20:00 97.7 59 17 128/35 94 Room Air 09/18/16 19:43 Room Air 21 09/18/16 19:43 94 Room Air 21 09/18/16 19:42 64 20 Room Air 21 09/18/16 17:23 133/56 09/18/16 16:00 97.2 60 17 133/56 95 Room Air 09/18/16 14:48 Room Air 09/18/16 12:15 97.7 68 18 136/59 98 Room Air Intake and Output 09/18/16 09/19/16 19:00 07:00 Intake Total 480 ml 360 ml Output Total 0 ml Balance 480 ml 360 ml Intake Oral 480 ml 360 ml Hemodialysis UF 0 ml # Voids 3 Laboratory Tests 09/19/16 04:55: Prothrombin Time 11.4, Prothromb Time International Ratio 1.1 Height (Feet): 5 Height (Inches): 6.00 Weight (Pounds): 137 General Appearance: no apparent distress Objective other PE not changed RICKI SALGADO Sep 19, 2016 12:15
[2016-09-19] MEDS ORDERED: fentaNYL 100 mcg/2 mL IV ONE (13:57)
[2016-09-19] MEDS ORDERED: Midazolam 2mg/2ml Inj ONE (13:57)
--- NOTE | 2016-09-19 14:22 | Pre-Procedure Note/Attestation ---
Pre-Procedure Note/Attestation Complete Prior to Procedure Planned Procedure: right Procedure Narrative: Permacath Indications for Procedure Pre-Operative Diagnosis: ESRD Attestation I attest that I discussed the nature of the procedure; its benefits; risks and complications; and alternatives (and the risks and benefits of such alternatives ), prior to the procedure, with the patient (or the patient's legal mortician supplies sales representative). I attest that, if there was a reasonable possibility of needing a blood transfusion, the patient (or the patient's legal mortician supplies sales representative) was given the [facility] standardized written summary, pursuant to the [place] Blood Safety Act ([place] Health and Safety Code # 1645, as amended). I attest that I re-evaluated the patient just prior to the surgery and that there has been no change in the patient's H&P, except as documented below: SULMA GUARDADO M.D. Sep 19, 2016 14:22
--- NOTE | 2016-09-19 14:38 | General Progress Note ---
Assessment/Plan Problem List: (1) NSTEMI (non-ST elevated myocardial infarction) ICD Codes: I21.4 - Non-ST elevation (NSTEMI) myocardial infarction SNOMED: 05858477 (2) Acute systolic heart failure Assessment & Plan: EF 35-40% ICD Codes: I50.21 - Acute systolic (congestive) heart failure SNOMED: 001880177 (3) Toxic metabolic encephalopathy ICD Codes: G92 - Toxic encephalopathy SNOMED: 754269477 (4) JENNIFER (acute kidney injury) ICD Codes: N17.9 - Acute kidney failure, unspecified SNOMED: 85266163 (5) Hyperkalemia ICD Codes: E87.5 - Hyperkalemia SNOMED: 20344776 (6) High anion gap metabolic acidosis ICD Codes: E87.2 - Acidosis SNOMED: 76255369 (7) Pacemaker ICD Codes: Z95.0 - Presence of cardiac pacemaker SNOMED: 362807007, 133053506 (8) Diabetes mellitus ICD Codes: E11.9 - Type 2 diabetes mellitus without complications SNOMED: 08361555 Status: stable Assessment/Plan Utox positive for opioids and barbiturates which may be likely culprits of encephalopathy. Unclear if pt had overdosed and whether it is intentional or accidental Etiology of JENNIFER may be pre-renal 2/2 dehydration (found down x 2 days vs cardiorenal (given new found cardiomgyopathy and elevated BNP), component of rhabdomylosis, and/or ATN Pt also with NSTEMI, EF 35-50%--acute vs subacute. Has h/o CAD w/ stent to LAD Appreciate pulm/critical care, nephrology, neurology, cardiology rec's s/p temporary HD line placement on 09/12/16 HD initiated on 09/12/16; cont HD per renal--pt now agreeable to HD after length discussion HD tunneled line placed 09/19/16 Trend lytes and Cr Avoid nephrotoxic agents Plan for medical mgmt of NSTEMI as pt not a candidate for invasive therapy per cardiology Cont ASA, statin, coreg. No MELO-I/ARB given renal failure RALF PT/OT/ST Puree diet per MAP CLERK SW/CM consulted for assistance w/ dispo to SNF DC planning DVT Prophylaxis: SCD, HSQ Code Status: Full Hospital Classification Declaration: Based on this initial evaluation, and depending on the patient's clinical course, I anticipate that this patient will require hospitalization for 1-2 days for JENNIFER, severe metabolic acidosis, NSTEMI , and close respiratory/hemodynamic monitoring. Disposition: Once the patient is stable to leave the hospital, I anticipate the patient will likely be discharged to the following environment: SNF I spent 38 minutes on this patient's case, and 22 minutes were dedicated to counseling and/or care coordination. Discussed with patient/family, nursing staff, SW/CM, pulm, cardiology, nephrology regarding clinical status, treatment course, and disposition planning. Time of note may not reflect time of encounter. Subjective Date patient seen: Sep 19, 2016 Time patient seen: 14:38 ROS Limited/Unobtainable: No Constitutional: Reports: no symptoms HEENT: Reports: no symptoms Cardiovascular: Reports: no symptoms Respiratory: Reports: no symptoms Gastrointestinal/Abdominal: Reports: no symptoms Genitourinary: Reports: no symptoms Neurologic/Psychiatric: Reports: no symptoms Endocrine: Reports: no symptoms Hematologic/Lymphatic: Reports: no symptoms Allergies: Coded Allergies: NO KNOWN ALLERGIES (Verified Allergy, Unknown, 09/12/16) All Systems: reviewed and negative except above Subjective More awake, alert. Cooperative off restraints. Traore removed and voiding on own. NGT removed and tolerating puree diet Agreeable to HD now Got HD tunnelled line placed today Discussed w/ son who would like pt placed at SNF Objective Last 24 Hour Vital Signs Date Time Temp Pulse Resp B/P Pulse Ox O2 Delivery O2 Flow Rate FiO2 09/19/16 14:30 65 16 179/64 99 Nasal Cannula 3.0 09/19/16 12:57 61 22 4.0 09/19/16 11:34 97.0 62 15 138/87 100 Room Air 09/19/16 09:47 64 150/60 09/19/16 09:47 64 150/60 09/19/16 08:12 97.3 64 15 150/60 96 Room Air 09/19/16 08:06 96 Room Air 21 09/19/16 08:06 61 16 Room Air 21 09/19/16 08:06 Room Air 21 09/19/16 05:49 130/60 09/19/16 04:00 98.1 66 20 130/60 96 Room Air 09/19/16 00:00 98.1 64 16 155/55 95 Room Air 09/18/16 20:53 64 133/56 09/18/16 20:00 97.7 59 17 128/35 94 Room Air 09/18/16 19:43 Room Air 21 09/18/16 19:43 94 Room Air 21 09/18/16 19:42 64 20 Room Air 21 09/18/16 17:23 133/56 09/18/16 16:00 97.2 60 17 133/56 95 Room Air 09/18/16 14:48 Room Air Intake and Output 09/18/16 09/19/16 19:00 07:00 Intake Total 480 ml 360 ml Output Total 0 ml Balance 480 ml 360 ml Intake Oral 480 ml 360 ml Hemodialysis UF 0 ml # Voids 3 Laboratory Tests 09/19/16 04:55: Prothrombin Time 11.4, Prothromb Time International Ratio 1.1 Height (Feet): 5 Height (Inches): 6.00 Weight (Pounds): 137 Objective General: awake, alert Head: normocephalic, without obvious abnormality, atraumatic Eyes: conjunctivae/corneas clear. PERRL, EOM's intact Throat: lips, mucosa, and tongue normal. MMM Neck: supple, symmetrical, trachea midline, and no JVD Lungs: clear to auscultation bilaterally Heart: regular rate and rhythm, S1, S2 normal, no murmur, click, rub or gallop Abdomen: soft, non-tender, non-distended, bowel sounds normal; no masses or organomegaly Extremities: extremities normal, atraumatic, no cyanosis or edema Pulses: 2+ and symmetric Skin: skin color, texture, turgor normal; no rashes or lesions Neurologic: no focal deficits Rubia Ma M.D. Sep 19, 2016 14:38
--- NOTE | 2016-09-19 16:40 | Pulmonology Progress Note ---
Assessment/Plan Problems: (1) Toxic metabolic encephalopathy (2) Acute on chronic renal insufficiency (3) Non-STEMI (non-ST elevated myocardial infarction) (4) Diabetes mellitus (5) Pacemaker (6) Advanced dementia (7) Non-compliance (8) Cardiomyopathy Assessment/Plan pt agreed to HD no new complians getting access will need placement called psych evaluation fo episodes of agitation dc planning in process continue current med Subjective ROS Limited/Unobtainable: No Allergies: Coded Allergies: NO KNOWN ALLERGIES (Verified Allergy, Unknown, 09/12/16) Objective Last 24 Hour Vital Signs Date Time Temp Pulse Resp B/P Pulse Ox O2 Delivery O2 Flow Rate FiO2 09/19/16 16:00 96.8 62 20 150/51 97 Room Air 09/19/16 14:45 59 25 180/65 100 Nasal Cannula 09/19/16 14:40 60 18 178/62 100 Nasal Cannula 3.0 09/19/16 14:35 61 16 179/63 100 Nasal Cannula 3.0 09/19/16 14:30 65 16 179/64 99 Nasal Cannula 3.0 09/19/16 12:57 61 22 4.0 09/19/16 11:34 97.0 62 15 138/87 100 Room Air 09/19/16 09:47 64 150/60 09/19/16 09:47 64 150/60 09/19/16 08:12 97.3 64 15 150/60 96 Room Air 09/19/16 08:06 96 Room Air 09/19/16 08:06 61 16 Room Air 09/19/16 08:06 Room Air 21 09/19/16 05:49 130/60 09/19/16 04:00 98.1 66 20 130/60 96 Room Air 09/19/16 00:00 98.1 64 16 155/55 95 Room Air 09/18/16 20:53 64 133/56 09/18/16 20:00 97.7 59 17 128/35 94 Room Air 09/18/16 19:43 Room Air 09/18/16 19:43 94 Room Air 09/18/16 19:42 64 20 Room Air 09/18/16 17:23 133/56 Intake and Output 09/18/16 09/19/16 19:00 07:00 Intake Total 480 ml 360 ml Output Total 0 ml Balance 480 ml 360 ml Intake Oral 480 ml 360 ml Hemodialysis UF 0 ml # Voids 3 Objective HEENT: normocephalic Respiratory/Chest: chest wall non-tender, lungs clear Cardiovascular: normal peripheral pulses, normal rate Abdomen: normal bowel sounds, soft, non tender Extremities: no cyanosis, no clubbing Skin: no ulcers 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 Musculoskeletal: normal muscle bulk, other - wound vac attached to Left leg stump Laboratory Tests 09/19/16 04:55: Prothrombin Time 11.4, Prothromb Time International Ratio 1.1 Current Medications Medications (Trade) Dose Ordered Sig/Serafin Route PRN Reason Start Time Stop Time Status Last Admin Dose Admin Acetaminophen (Tylenol) 650 mg Q4H PRN ORAL Fever 09/18/16 00:30 10/18/16 00:29 Acetaminophen (Tylenol) 650 mg Q4H PRN ORAL Mild Pain (Pain Scale 1-3) 09/18/16 00:30 10/18/16 00:29 Albuterol/ Ipratropium (DuoNeb 0.5-3(2.5)mg/3ml) 3 ml Q4H PRN HHN Shortness of Breath 09/18/16 00:30 09/23/16 00:29 Amlodipine Besylate (Norvasc) 5 mg DAILY ORAL 09/18/16 09:00 10/18/16 08:59 09/19/16 09:47 Aspirin (ASA) 325 mg DAILY ORAL 09/18/16 09:00 10/18/16 08:59 09/19/16 09:47 Atorvastatin Calcium (Lipitor) 10 mg BEDTIME ORAL 09/18/16 21:00 10/18/16 20:59 09/18/16 20:53 Calcium Carbonate (Os-Anoop) 1,250 mg THREE TIMES A DAY ORAL 09/18/16 09:00 10/18/16 08:59 09/19/16 09:47 Carvedilol (Coreg) 6.25 mg EVERY 12 HOURS ORAL 09/18/16 09:00 10/18/16 08:59 09/19/16 09:47 Dextrose (Dextrose 50%) STAT PRN IV Hypoglycemia 09/18/16 16:00 10/18/16 15:59 Insulin Aspart (NovoLOG) BEFORE MEALS AND HS SUBQ 09/18/16 06:30 10/18/16 06:29 09/18/16 20:54 Nitroglycerin (Nitro-Bid) 1 inch TID@0600,1200,1800 TOPIC 09/18/16 06:00 10/18/16 05:59 09/18/16 17:23 Olanzapine (ZyPREXA) 2.5 mg BEDTIME ORAL 09/18/16 21:00 10/18/16 20:59 09/18/16 20:53 Ondansetron HCl (Zofran) 4 mg Q6H PRN IVP Nausea & Vomiting 09/17/16 22:30 10/17/16 22:29 Polyethylene Glycol (Miralax) 17 gm DAILYPRN PRN ORAL Constipation 09/18/16 16:30 10/18/16 16:29 Ranitidine HCl (Zantac) 150 mg BEDTIME ORAL 09/18/16 21:00 10/18/16 20:59 09/18/16 20:53 Sevelamer Carbonate (Renvela) 800 mg TIPC ORAL 09/18/16 09:00 10/18/16 08:59 09/19/16 09:47 LROENE RAMÍREZ Sep 19, 2016 16:40
--- NOTE | 2016-09-19 16:48 | Progress Note ---
SUBJECTIVE: The patient is calmer and more lucid, however, she still is still disorganized and has some cognitive impairment. Anxiety and agitation has decreased. MENTAL STATUS EXAMINATION: The patient is alert and more engaged. Mood is neutral. Affect is flat. Congruent mood. Thought process, there is a paucity of thought content. Cognition is impaired. ASSESSMENT: Delirium, improving. PLAN: The patient will be continued on olanzapine 2.5 mg p.o. at bedtime. Renu Esparza M.D. DR: GLORIA JOB#: [id number] CC:
--- NOTE | 2016-09-19 16:55 | Diagnostic Imaging Report ---
Indications: Needs long-term dialysis access Technique: Total sterile technique, including sterile gloves, hand hygiene, hat, mask,, sterile gown, large sterile drape, and preparation with 2% chlorhexidine utilized. Local anesthesia with 1% lidocaine. Under real-time ultrasound guidance, puncture right internal jugular vein using 21-gauge micropuncture needle, passage 0.018 guidewire, exchange for 4 [place] micropuncture introducer. The guidewire was used to measure the appropriate catheter length, and was removed. The sheath was left in place. The subcutaneous tract was then anesthetized with 1% lidocaine. A chest dermatotomy was made . The tunneling device was used to pull a 14 [place] 23 cm Bard BioBloc catheter through the subcutaneous tunnel to the neck dermatotomy. A guidewire was passed through the neck introducer into the inferior vena cava, and serial dilators were passed over it, followed by the introduction of a 14.5 [place] AirGuard peel-away sheath. The catheter was then introduced into the sheath, the peel-away sheath was removed. Digital radiograph documents satisfactory catheter tip position in the high right atrium, no kinking at the insertion site. Both catheter ports aspirated and flushed. Catheter was fixed to the skin. Patient tolerated procedure well without immediate complication. Total fluoroscopy time 0.9 minutes. Total dose area product 11 dGycm2 . Comparison: None Findings: Completion radiograph documents satisfactory position and course of the catheter, catheter tip at the high right atrium. Impression: Successful placement of right transjugular tunneled dialysis catheter, as described above
[2016-09-19] MEDS: OLANZapine 2.5mg tab ORAL SCH (21:16)
[2016-09-20] VITALS (7 sets, daily range): BP systolic 128–180; BP diastolic 51–74
[2016-09-20] MEDS: Nitroglycerin 2% oint pkt TOPIC SCH (05:34)
[2016-09-20] MEDS: NovoLOG Insulin Flexpen SUBQ SCH ×3 (06:05→17:02)
[2016-09-20 07:15] LABS: MEAN CORPUSCULAR HEMOGLOBIN 31.4 PG (27.0-31.0); MEAN CORPUSCULAR HGB CONC 32.4 G/DL (32.0-36.0); MEAN CORPUSCULAR VOLUME 97 FL (80-99); MEAN PLATELET VOLUME 8.1 FL (6.5-10.1); PLATELET COUNT 99 K/UL (150-450); RED BLOOD COUNT 2.41 M/UL (4.20-5.40); RED CELL DISTRIBUTION WIDTH 13.2 % (11.6-14.8); WHITE BLOOD COUNT 3.8 K/UL (4.8-10.8)
[2016-09-20 07:30] LABS: ALANINE AMINOTRANSFERASE 9 U/L (3-33); ANION GAP 15 (5-15); ASPARTATE AMINO TRANSFERASE 13 U/L (5-40); CALCIUM 7.9 mg/dL (8.6-10.2); CARBON DIOXIDE 29 mEQ/L (20-30); CHLORIDE 101 mEQ/L (98-107); CREATININE 4.1 mg/dL (0.5-0.9); CRP QUANT 1.1 mg/dL (< 0.5); HEMOLYSIS 4; MAGNESIUM 1.6 mg/dL (1.7-2.5); PHOSPHORUS 3.5 mg/dL (2.5-4.8); SODIUM 145 mEQ/L (135-145); TOTAL PROTEIN 4.6 g/dL (6.6-8.7); URIC ACID 6.2 mg/dL (3.0-7.5)
[2016-09-20 08:42] LABS: EOSINOPHILS % (MANUAL) 5 % (0-3); LYMPHOCYTES % (MANUAL) 44 % (20-45); NEUTROPHILS % (MANUAL) 47 % (45-75); TOTAL CELLS COUNTED 100
[2016-09-20 08:43] LABS: BAND NEUTROPHILS % (MANUAL) 0 % (0-8); BASOPHILS % (MANUAL) 0 % (0-2); PLATELET ESTIMATE DECREASED; PLATELET MORPHOLOGY NORMAL
[2016-09-20] MEDS: Carvedilol 6.25mg Tab ORAL SCH (09:00)
[2016-09-20] MEDS: Renvela 800mg Pkt ORAL SCH (09:00)
[2016-09-20] MEDS: Calcium Carbonate 1250mg/5ml Liquid ud ORAL SCH ×3 (09:00→18:00)
--- NOTE | 2016-09-20 11:29 | General Progress Note ---
Assessment/Plan Status: stable Status Narrative now has permacath Assessment/Plan status; JENNIFER (acute kidney injury)- Underlying CKD Severe Hyperkalemia resolved Possible Rhabdomyolysis Pace Maker High Toponin I Plan: add zestril Mag , K , supplement given- On Nitro- Asprin, Ca Chann Blkrs Phos binders to treat high Phos and low Calcium Monitor renal parameters HD : done this am suggest DC planning Subjective ROS Limited/Unobtainable: No Constitutional: Reports: weakness Allergies: Coded Allergies: NO KNOWN ALLERGIES (Verified Allergy, Unknown, 09/12/16) Objective Last 24 Hour Vital Signs Date Time Temp Pulse Resp B/P Pulse Ox O2 Delivery O2 Flow Rate FiO2 09/20/16 09:09 Room Air 09/20/16 09:08 97.4 60 18 133/57 96 Room Air 09/20/16 08:50 66 16 Room Air 09/20/16 08:50 95 Room Air 21 09/20/16 08:50 Room Air 21 09/20/16 07:42 97.6 68 15 131/51 97 Room Air 09/20/16 05:34 155/57 09/20/16 05:30 Room Air 09/20/16 05:30 97.9 66 20 180/74 96 Room Air 09/20/16 04:00 98.4 60 18 155/57 94 Room Air 09/20/16 00:00 97.9 61 18 154/54 93 Room Air 09/19/16 21:15 73 163/58 09/19/16 19:34 92 Room Air 09/19/16 19:34 Room Air 09/19/16 19:33 67 16 Room Air 09/19/16 19:00 97.2 73 20 163/58 95 Room Air 09/19/16 17:27 128/51 09/19/16 16:00 96.8 62 20 150/51 97 Room Air 09/19/16 14:45 59 25 180/65 100 Nasal Cannula 09/19/16 14:40 60 18 178/62 100 Nasal Cannula 3.0 09/19/16 14:35 61 16 179/63 100 Nasal Cannula 3.0 09/19/16 14:30 65 16 179/64 99 Nasal Cannula 3.0 09/19/16 12:57 61 22 4.0 09/19/16 11:34 97.0 62 15 138/87 100 Room Air Intake and Output 09/19/16 09/20/16 19:00 07:00 Intake Total 0 ml 240 ml Balance 0 ml 240 ml Intake Oral 0 ml 240 ml # Voids 2 6 # Bowel Movements 2 Laboratory Tests 09/20/16 04:50: White Blood Count 3.8L, Red Blood Count 2.41L, Hemoglobin 7.6L, Hematocrit 23.3L , Mean Corpuscular Volume 97, Mean Corpuscular Hemoglobin 31.4H, Mean Corpuscular Hemoglobin Concent 32.4, Red Cell Distribution Width 13.2, Platelet Count 99L, Mean Platelet Volume 8.1, Neutrophils (%) (Auto) , Lymphocytes (%) ( Auto) , Monocytes (%) (Auto) , Eosinophils (%) (Auto) , Basophils (%) (Auto) , Differential Total Cells Counted 100, Neutrophils % (Manual) 47, Lymphocytes % ( Manual) 44, Monocytes % (Manual) 4, Eosinophils % (Manual) 5H, Basophils % ( Manual) 0, Band Neutrophils 0, Platelet Estimate DecreasedL, Platelet Morphology Normal, Red Blood Cell Morphology Normal, Sodium Level 145, Potassium Level 3.0L, Chloride Level 101, Carbon Dioxide Level 29, Anion Gap 15 , Blood Urea Nitrogen 63H, Creatinine 4.1H, Estimat Glomerular Filtration Rate , Glucose Level 125H, Uric Acid 6.2, Calcium Level 7.9L, Phosphorus Level 3.5, Magnesium Level 1.6L, Total Bilirubin 0.5, Aspartate Amino Transf (AST/SGOT) 13 , Alanine Aminotransferase (ALT/SGPT) 9, Alkaline Phosphatase 71, C-Reactive Protein, Quantitative 1.1H, Pro-B-Type Natriuretic Peptide 21089F, Total Protein 4.6L, Albumin 2.3L, Globulin 2.3, Albumin/Globulin Ratio 1.0 Height (Feet): 5 Height (Inches): 6.00 Weight (Pounds): 134 General Appearance: no apparent distress Cardiovascular: normal rate Respiratory/Chest: decreased breath sounds Abdomen: soft Objective other PE not changed RICKI SALGADO Sep 20, 2016 11:29
[2016-09-20] MEDS ORDERED: Lisinopril 2.5mg tab ORAL SCH (11:30)
--- NOTE | 2016-09-20 12:58 | General Progress Note ---
Assessment/Plan Problem List: (1) NSTEMI (non-ST elevated myocardial infarction) ICD Codes: I21.4 - Non-ST elevation (NSTEMI) myocardial infarction SNOMED: 86731836 (2) Acute systolic heart failure Assessment & Plan: EF 35-40% ICD Codes: I50.21 - Acute systolic (congestive) heart failure SNOMED: 460041197 (3) Toxic metabolic encephalopathy ICD Codes: G92 - Toxic encephalopathy SNOMED: 405048429 (4) JENNIFER (acute kidney injury) ICD Codes: N17.9 - Acute kidney failure, unspecified SNOMED: 92127825 (5) Hyperkalemia ICD Codes: E87.5 - Hyperkalemia SNOMED: 20087293 (6) High anion gap metabolic acidosis ICD Codes: E87.2 - Acidosis SNOMED: 29702923 (7) Pacemaker ICD Codes: Z95.0 - Presence of cardiac pacemaker SNOMED: 067700357, 319442329 (8) Diabetes mellitus ICD Codes: E11.9 - Type 2 diabetes mellitus without complications SNOMED: 95747057 Status: stable Assessment/Plan Utox positive for opioids and barbiturates which may be likely culprits of encephalopathy. Unclear if pt had overdosed and whether it is intentional or accidental Etiology of JENNIFER may be pre-renal 2/2 dehydration (found down x 2 days vs cardiorenal (given new found cardiomgyopathy and elevated BNP), component of rhabdomylosis, and/or ATN Pt also with NSTEMI, EF 35-50%--acute vs subacute. Has h/o CAD w/ stent to LAD Appreciate pulm/critical care, nephrology, neurology, cardiology rec's s/p temporary HD line placement on 09/12/16 HD initiated on 09/12/16; cont HD per renal--pt now agreeable to HD after length discussion HD tunneled line placed 09/19/16 Trend lytes and Cr Avoid nephrotoxic agents Plan for medical mgmt of NSTEMI as pt not a candidate for invasive therapy per cardiology Cont ASA, statin, coreg. No MELO-I/ARB given renal failure RALF PT/OT/ST Puree diet per AREA CAPTAIN SW/CM consulted for assistance w/ dispo to SNF DC planning DVT Prophylaxis: SCD, HSQ Code Status: Full Hospital Classification Declaration: Based on this initial evaluation, and depending on the patient's clinical course, I anticipate that this patient will require hospitalization for 1-2 days for JENNIFER, severe metabolic acidosis, NSTEMI , and close respiratory/hemodynamic monitoring. Disposition: Once the patient is stable to leave the hospital, I anticipate the patient will likely be discharged to the following environment: SNF I spent 38 minutes on this patient's case, and 22 minutes were dedicated to counseling and/or care coordination. Discussed with patient/family, nursing staff, SW/CM, pulm, cardiology, nephrology regarding clinical status, treatment course, and disposition planning. Time of note may not reflect time of encounter. Subjective Date patient seen: Sep 20, 2016 Time patient seen: 12:58 ROS Limited/Unobtainable: No Constitutional: Reports: no symptoms HEENT: Reports: no symptoms Cardiovascular: Reports: no symptoms Respiratory: Reports: no symptoms Gastrointestinal/Abdominal: Reports: no symptoms Genitourinary: Reports: no symptoms Neurologic/Psychiatric: Reports: no symptoms Endocrine: Reports: no symptoms Hematologic/Lymphatic: Reports: no symptoms Allergies: Coded Allergies: NO KNOWN ALLERGIES (Verified Allergy, Unknown, 09/12/16) All Systems: reviewed and negative except above Subjective More awake, alert. Cooperative off restraints. Traore removed and voiding on own. NGT removed and tolerating puree diet Agreeable to HD now Got HD tunnelled line placed today Discussed w/ son who would like pt placed at SNF Objective Last 24 Hour Vital Signs Date Time Temp Pulse Resp B/P Pulse Ox O2 Delivery O2 Flow Rate FiO2 09/20/16 12:07 138/51 09/20/16 11:32 99.6 67 14 138/51 95 Room Air 09/20/16 09:09 Room Air 09/20/16 09:08 97.4 60 18 133/57 96 Room Air 09/20/16 08:50 66 16 Room Air 21 09/20/16 08:50 95 Room Air 21 09/20/16 08:50 Room Air 21 09/20/16 07:42 97.6 68 15 131/51 97 Room Air 09/20/16 05:34 155/57 09/20/16 05:30 Room Air 09/20/16 05:30 97.9 66 20 180/74 96 Room Air 09/20/16 04:00 98.4 60 18 155/57 94 Room Air 09/20/16 00:00 97.9 61 18 154/54 93 Room Air 09/19/16 21:15 73 163/58 09/19/16 19:34 92 Room Air 21 09/19/16 19:34 Room Air 21 09/19/16 19:33 67 16 Room Air 21 09/19/16 19:00 97.2 73 20 163/58 95 Room Air 09/19/16 17:27 128/51 09/19/16 16:00 96.8 62 20 150/51 97 Room Air 09/19/16 14:45 59 25 180/65 100 Nasal Cannula 09/19/16 14:40 60 18 178/62 100 Nasal Cannula 3.0 09/19/16 14:35 61 16 179/63 100 Nasal Cannula 3.0 09/19/16 14:30 65 16 179/64 99 Nasal Cannula 3.0 Intake and Output 09/19/16 09/20/16 19:00 07:00 Intake Total 0 ml 240 ml Balance 0 ml 240 ml Intake Oral 0 ml 240 ml # Voids 2 6 # Bowel Movements 2 Laboratory Tests 09/20/16 04:50: White Blood Count 3.8L, Red Blood Count 2.41L, Hemoglobin 7.6L, Hematocrit 23.3L , Mean Corpuscular Volume 97, Mean Corpuscular Hemoglobin 31.4H, Mean Corpuscular Hemoglobin Concent 32.4, Red Cell Distribution Width 13.2, Platelet Count 99L, Mean Platelet Volume 8.1, Neutrophils (%) (Auto) , Lymphocytes (%) ( Auto) , Monocytes (%) (Auto) , Eosinophils (%) (Auto) , Basophils (%) (Auto) , Differential Total Cells Counted 100, Neutrophils % (Manual) 47, Lymphocytes % ( Manual) 44, Monocytes % (Manual) 4, Eosinophils % (Manual) 5H, Basophils % ( Manual) 0, Band Neutrophils 0, Platelet Estimate DecreasedL, Platelet Morphology Normal, Red Blood Cell Morphology Normal, Sodium Level 145, Potassium Level 3.0L, Chloride Level 101, Carbon Dioxide Level 29, Anion Gap 15 , Blood Urea Nitrogen 63H, Creatinine 4.1H, Estimat Glomerular Filtration Rate , Glucose Level 125H, Uric Acid 6.2, Calcium Level 7.9L, Phosphorus Level 3.5, Magnesium Level 1.6L, Total Bilirubin 0.5, Aspartate Amino Transf (AST/SGOT) 13 , Alanine Aminotransferase (ALT/SGPT) 9, Alkaline Phosphatase 71, C-Reactive Protein, Quantitative 1.1H, Pro-B-Type Natriuretic Peptide 26131W, Total Protein 4.6L, Albumin 2.3L, Globulin 2.3, Albumin/Globulin Ratio 1.0 Height (Feet): 5 Height (Inches): 6.00 Weight (Pounds): 134 Objective General: awake, alert Head: normocephalic, without obvious abnormality, atraumatic Eyes: conjunctivae/corneas clear. PERRL, EOM's intact Throat: lips, mucosa, and tongue normal. MMM Neck: supple, symmetrical, trachea midline, and no JVD Lungs: clear to auscultation bilaterally Heart: regular rate and rhythm, S1, S2 normal, no murmur, click, rub or gallop Abdomen: soft, non-tender, non-distended, bowel sounds normal; no masses or organomegaly Extremities: extremities normal, atraumatic, no cyanosis or edema Pulses: 2+ and symmetric Skin: skin color, texture, turgor normal; no rashes or lesions Neurologic: no focal deficits Rubia Ma M.D. Sep 20, 2016 12:58
[2016-09-20] MEDS ORDERED: D5 1/2NS 1000ml IV ONE (14:26)
[2016-09-20] MEDS ORDERED: Tubing IV Secondary IV ONE (14:26)
--- NOTE | 2016-09-20 16:32 | Cardiology Report ---
APPROVED REPORT EKG Measurement Heart [id number] GA 232P [id number] Sinus rhythm with 1st degree AV block with occasional premature ventricular complexes Left axis deviation Minimal voltage criteria for LVH, may be normal variant Abnormal ECG
[2016-09-21] MEDS ORDERED: Imdur 30mg tab ORAL SCH (09:00)
--- NOTE | 2016-09-24 12:20 | Discharge Summary ---
Discharge Summary Hospital Course Date of Admission Sep 11, 2016 at 16:10 Date of Discharge Sep 20, 2016 at 20:05 Admitting Diagnosis AMS HPI Delia Mullen is a 76 year old female who was admitted on Sep 11, 2016 at 16:10 for Altered Mental Status Hospital Course dc summary #[id number] Discharge Medications New Medications: Olanzapine (Olanzapine) 2.5 Mg Tablet 2.5 MG ORAL BEDTIME for 30 Days, TAB Sevelamer Carbonate* (Renvela*) 0.8 Gm Powd.pack 800 MG ORAL TIPC for 30 Days, PACK Continued Medications: Amiodarone Hcl* (Cordarone*) 200 Mg Tablet 200 MG ORAL DAILY, TAB Aspirin* (Aspir 81*) 81 Mg Tablet.dr 81 MG ORAL DAILY, TAB Cinacalcet* (Sensipar*) 30 Mg Tablet 30 MG ORAL DAILY, TAB Clonazepam* (Klonopin*) 1 Mg Tablet 1 MG ORAL BID, #15 TAB 0 Refills Esomeprazole Magnesium (Nexium) 40 Mg Capsule.dr 40 MG ORAL DAILY, CAP Ferrous Sulfate* (Ferrous Sulfate*) 325 Mg Tablet 325 MG ORAL DAILY, #30 TAB 0 Refills Hydralazine Hcl* (Hydralazine Hcl*) 50 Mg Tablet 50 MG ORAL TID, TAB Nateglinide* (Starlix*) 60 Mg Tablet 60 MG ORAL THREE TIMES A DAY, TAB Rosuvastatin Calcium* (Crestor*) 10 Mg Tablet 10 MG ORAL HS, TAB Discharge Condition Upon Discharge: stable Discharge Disposition Patient was discharged to SNF/Subacute Facility(03) Discharge Diagnoses: Juan M (Alec)Nathalie NP Sep 24, 2016 12:20
--- NOTE | 2016-09-25 03:38 | Discharge Summary 2 SIG ---
DATE OF ADMISSION: 09/11/2016 DATE OF DISCHARGE: 09/20/2016 REASON FOR ADMISSION: 76-year-old female was brought in by ambulance from home for altered level of consciousness. Neighbors have not seen the patient for two days and called paramedics. The patient found on the floor covered in her own feces and was unable to provide any information. Workup in the emergency room revealed evidence of dehydration, acute hyperkalemia, and acute renal failure. Chest x-ray initially revealed no pneumonia. CT of the head was negative for acute trauma. Pulse oximetry was stable on the room air. Urine tox screen was positive for opiates and barbiturates. Patient was noted to have elevated CK, low bicarb, elevated serum creatinine, and hyperkalemia. Urinalysis was negative for urinary tract infection. The patient was admitted for further management. First troponin was negative. EKG showed normal sinus rhythm with AV pacing with ventricular paced complexes. ADMITTING DIAGNOSES: 1. Altered mental status. 2. Rhabdomyolysis. 3. Acute kidney injury. 4. Hyperkalemia. 5. Dehydration. HOSPITAL STAY: The patient was admitted. Nephrology, Pulmonary, and Cardiology consult were requested. The patient was initially NPO. ABG revealed severe metabolic acidosis with elevated anion gap. The patient initially was on the IV fluids with bicarbonate. Kayexalate given for hyperkalemia. Renal parameters were closely monitored. Nephrotoxic were avoided. There was no improvement in renal parameters and eventually, decision was made to start hemodialysis. Initially, temporary hemodialysis catheter was inserted. The patient had two hemodialysis, afterwards she declined further hemodialysis despite detailed explanation by all doctors. Later, the patient changed her mind and agreed to dialysis. Permanent hemodialysis catheter - tunnelled hemodialysis catheter - via right internal jugular vein was inserted, and the patient was continued on hemodialysis. Renal parameters were stable. Hyperkalemia resolved. Hemodialysis arranged as outpatient upon discharge to the [facility] facility. Continue phosphorous binders as per sergeant of corrections. CK with small trend down. Acute renal failure likely with multifactorial etiology including drug overdose , dehydration and rhabdomyolysis. The patient presented with persistent lethargy most likely due to the underlying toxic metabolic encephalopathy contributed by renal failure, use of barbiturates and opiates. Neurologist seen the patient and recommended to continue dialysis, stabilize, and then reassess. Meanwhile, he recommended to hold all unessential treatment including statins and sedatives, including benzodiazepine. The patient's mental status, as she started her dialysis, returned to baseline, however, she had some episodes of confusion even though her mood was stable. Psychiatrist evaluation was requested. The patient was diagnosed with delirium due to the multiple medical problems. The patient was started on low dose of Zyprexa. The patient had a history of coronary artery disease and LAD stent. The patient was noted to have elevated troponin , and Cardiology consult was requested. Per snaker driving horses, the EKG interpreted as paced; echocardiogram revealed ejection fraction of 35% and right ventricular systolic pressure of 77 consistent with severe pulmonary hypertension and also evidence of severe mitral and moderate tricuspid regurgitation, mild left ventricular hypertrophy. Even after hemodialysis, the patient still remained acidotic. Per snaker driving horses, the patient was not a candidate for invasive cardiac therapy because of her altered mentation and electrolyte abnormality as well as acute renal failure and thrombocytopenia. Motor Assembly Supervisor followed up with troponin trend until down trend was noted. The patient was started on the medical management of congestive heart failure including aspirin, beta-tj, statin, and nitroglycerin paste. No MELO or ARB due to the renal failure. Troponin was followed closely and finally, troponin down trend was noted to 6.6 from 11.39. The patient on medical management for congestive heart failure as well as the dialysis. The patient has a pacemaker secondary to sick sinus syndrome. Interrogated and functioning properly. Patient was started on Amiodarone per cardio due to PAF, Blood cultures were negative. Urine cultures were negative. leukocytosis only x 1 day. Leukocytosis possibly reactive due to NSTEMI. The patient noted to have dysphagia with swallow evaluation. Speech therapist was working up with the patient and recommended mechanical soft ground diet with thin liquids, strict aspiration precaution and supervision. Diet can be upgraded later in the care home as tolerated when upper full dentures will be brought from home, since at this point, she only had lower teeth. Blood sugar was managed with the sliding scale of insulin and was stable. Hemoglobin A1c - 4.8. Hemoglobin and hematocrit were closely monitored. Patient with evidence of anemia of chronic disease, likely anemia of renal disease. Hemoglobin and hematocrit need to be closely monitored in the [facility] facility . Patient may need Epogen on as-needed basis. The patient was stable for discharge. DISCHARGE DIAGNOSIS: 1. Non ST-segment elevation myocardial infarction. 2. Acute toxic metabolic encephalopathy. 3. Acute systolic heart failure. 4. Acute renal failure on underlying chronic kidney disease., requiring start of hemodialysis 5. Hyperkalemia, -resolved. 6. Rhabdomyolysis. 7. Severe metabolic acidosis with high anion gap. 8. Sick sinus syndrome status post pacemaker. 9. Diabetes mellitus. 10. Dysphagia. 11. Paroxysmal atrial fibrillation. 12. Hypertension. 13. Anemia of chronic disease. 14. Coronary artery disease with history of LAD stent. 15. Severe pulmonary hypertension. 16. Severe mitral regurgitation. 17. Delirium secondary to current medical disease. 18, Overdose on opiates and Phenobarbital DISCHARGE MEDICATIONS: See medication reconciliation list. DISCHARGE INSTRUCTIONS: The patient was discharged to the [facility] facility. Followup with the hemodialysis. Close monitoring of cardiopulmonary status. Monitor renal parameters, hemoglobin, and hematocrit. The patient needs close monitoring. PT, OT, and ST. Ja Diaz M.D. I have been assigned to dictate discharge summary on this account and I was not involved in the patient's management. Nathalie Mcgowan ([facility]) N.PCody DR: GUILLE JOB#: [id number] CC: NEIDA
== END 2016-09-20 20:05 | DRG 280 ==
LOC: EDBD 15:21 → EMR 15:39 → 2E 16:10 → EDBEDREQ 16:23 → EDBEDREQTM 19:13 → EDBEDREQ 19:13 → EDBEDREQSVC 19:13 → EDBEDREQ 19:29 → ICU 19:42 → 2E 09-13 15:10 → 4E 09-17 21:37
PROC: 5A1D60Z (ICD-10-PCS; principal; 2016-09-12)
PROC: 05H533Z Insertion of Infusion Device into Right Subclavian Vein, Percutaneous Approach (ICD-10-PCS; 2016-09-13)
PROC: 02H633Z Insertion of Infusion Device into Right Atrium, Percutaneous Approach (ICD-10-PCS; 2016-09-18)
DX: I21.4 Non-ST elevation (NSTEMI) myocardial infarction (principal); G92 Toxic encephalopathy; N17.9 Acute kidney failure, unspecified; I50.21 Acute systolic (congestive) heart failure; E87.2 Acidosis; N18.6 End stage renal disease; D69.6 Thrombocytopenia, unspecified; R13.10 Dysphagia, unspecified; M62.82 Rhabdomyolysis; I12.0 Hypertensive chronic kidney disease with stage 5 chronic kidney disease or end stage renal disease; F05 Delirium due to known physiological condition; E87.5 Hyperkalemia; E86.0 Dehydration; Z95.0 Presence of cardiac pacemaker; F19.90 Other psychoactive substance use, unspecified, uncomplicated; I25.10 Atherosclerotic heart disease of native coronary artery without angina pectoris; Z95.5 Presence of coronary angioplasty implant and graft; I27.2 Other secondary pulmonary hypertension; D63.8 Anemia in other chronic diseases classified elsewhere; T50.901A Poisoning by unspecified drugs, medicaments and biological substances, accidental (unintentional), initial encounter; I48.0 Paroxysmal atrial fibrillation; E11.9 Type 2 diabetes mellitus without complications; G30.9 Alzheimer's disease, unspecified; F02.80 Dementia in other diseases classified elsewhere, unspecified severity, without behavioral disturbance, psychotic disturbance, mood disturbance, and anxiety; I25.5 Ischemic cardiomyopathy; I08.1 Rheumatic disorders of both mitral and tricuspid valves; F41.9 Anxiety disorder, unspecified; E83.51 Hypocalcemia; E83.39 Other disorders of phosphorus metabolism
CPT/HCPCS: 36415; 36569; 36600; 70450; 71010; 74000; 76937; 80048; 80053; 80061; 80300; 80329; 81003; 82550; 82553; 82803; 82962; 82977; 83036; 83605; 83735; 83880; 83930; 84100; 84484; 84550; 85007; 85025; 85610; 85651; 85730; 86140; 86706; 86707; 86803; 87040; 87081; 87086; 93005; 93306; 94640; 94664; 94760; J1815; J2250; J2405